=== PATIENT | female | born 2005 | race Hispanic/Latino ===

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

== ENCOUNTER 2025-08-02 07:46 | Emergency (ER) | payer OTHER ==
--- OUTSIDE RECORDS SUMMARY | 2025-08-02 07:52 | XMS REPORT | Continuity of Care Document ---
Author Name Unknown Address [address] [facility] [address] [place] [address] [facility] Address [address] [facility] [address] [place] [address] Care Team Providers Care Agile Scrum Master Name Role Phone PCP, PATIENT DOES NOT HAVE A Primary Care Physic naren Unavailable NATALEE AMEZQUITA Attending Clinician Unavailable NATALEE AMEZQUITA Attending Clinician Unavailable Natalee Amezquita MD Attending Clinician [phone] Doctor Unassigned, [place] Attending Clinician U navailable LEATHA HOWARD Attending Clinician Unavailable LEATHA HOWARD Attending Clinician Unavailable Nurse, [facility] Attending Clinician Un available Leslie Solitario MD Attending Clinician [phone] LESLIE SOLITARIO Attending Clinician Unavailable Leatha Howard MD Attending Clinician [phone] DOUG HOLLAND Attending Clinician Unavailab Doug Lewis NP Attending Clinician [phone] ISABELLA COLE Attending Clinician Unavailable MARCELLUS JOE Attending Clinician UnavailMarcellus Singh MD Attending Clinician [phone] Vadim Walker MD Attending Clinician Caden Cervantes MD Attending Clinician [phone] [facility] Attending Clinician Unavailable Isabella Cole DNP Attending Clinician [phone] , [facility] Lab Attending Clinician Unavailable Ultrasound, [facility] Attending Clinician UnavailMaryan Cruz MD Attending Clinician + MARYAN TAVARES Attending Clinician Unav ailable MARYAN TAVARES Attending Clinician Unav ailable BRIAN HAYES Attending Clinician Unavailable BRIAN HAYES Attending Clinician Unavailable Brian Hayes MD Attending Clinician [phone], [facility] Attending Clinician Unavailable NATALEE AMEZQUITA Admitting Clinician Unavailable LESLIE SOLITARIO Admitting Clinician Unavailable DOUG HOLLAND Admitting Clinician UnavailMARCELLUS Saravia Admitting Clinician UnavailMarcellus Singh MD Admitting Clinician [phone] Natalee Amezquita MD Admitting Clinician Payers Payer Name Policy Type Policy Number Effective Date Expirati on Date Source [facility] [id number] 2024 00:00:00 Problems Condition Name Condition Details Condition Category Status Onset Date Resolution Date Last Treatment Date Treating Clinician Comments Source Preeclamps ia, third trimester Preeclamps ia, third trimester Disease Active 2023-10 00:00: 00 [facility] Palpitatio ns Palpitatio ns Disease Active 2023-10 00:00: 00 [facility] BCP ( control pills) initiation BCP ( control pills) initiation Disease Resolve d 4-28 00:00: 00 2025-07-27 00:00:00 2025-07-27 18:37:49 [facility] PRES (posterior reversible encephalop athy syndrome) PRES (posterior reversible encephalop athy syndrome) Disease Resolve d 1-06 00:00: 00 2025-07-27 00:00:00 2025-07-27 18:38:02 [facility] 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 Disease Resolve d 1-06 00:00: 00 2025-07-27 00:00:00 2025-07-27 18:37:52 [facility] History of severe pre-eclamp emory History of severe pre-eclamp emory Disease Resolve d 2024-1 2-26 00:00: 00 2025-07-27 00:00:00 2025-07-27 18:38:10 [facility] Biliary colic Biliary colic Disease Resolve d 2-17 00:00: 00 2025-02-16 00:00:00 2025-02-16 15:15:58 [facility] Biliary sludge determined by ultrasound Biliary sludge determined by ultrasound Disease Resolve d 1-29 00:00: 00 2025-02-16 00:00:00 2025-02-16 15:16:01 [facility] RUQ pain RUQ pain Disease Resolve d 1-29 00:00: 00 2025-02-16 00:00:00 2025-02-16 15:16:00 [facility] Calculus of gallbladde r without cholecysti tis without obstructio n Calculus of gallbladde r without cholecysti tis without obstructio n Disease Resolve d 1- 00:00: 00 2025-02-16 00:00:00 2025-02-16 15:15:59 [facility] Personal history of gallstones Personal history of gallstones Disease Resolve d 9-24 00:00: 00 2025-02-16 00:00:00 2025-02-16 15:16:06 [facility] Chlamydia trachomati s infection of lower genitourin mika sites Chlamydia trachomati s infection of lower genitourin mika sites Disease Resolve d 8-05 00:00: 00 2025-02-16 00:00:00 2025-02-16 15:16:08 [facility] Non-reacti ve NST (non-stres s test) Non-reacti ve NST (non-stres s test) Disease Resolve d 2023-10 2-26 00:00: 00 2024-11-18 00:00:00 2024-11-18 14:21:54 [facility] Oligohydra mnios in third trimester, single or unspecifie d fetus Oligohydra mnios in third trimester, single or unspecifie d fetus Disease Resolve d 2023-10 2-26 00:00: 00 2024-11-18 00:00:00 2024-11-18 14:21:34 [facility] 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 for herpes simplex virus (HSV) antibody Disease Resolve d 2023-10 2-25 00:00: 00 2024-11-18 00:00:00 2024-11-18 14:21:50 [facility] Anemia in , third trimester Anemia in , third trimester Disease Resolve d 2023-10 2-25 00:00: 00 2024-11-18 00:00:00 2024-11-18 14:21:52 [facility] 33 weeks gestation of 33 weeks gestation of Disease Resolve d 2023-10 2-24 00:00: 00 2024-11-18 00:00:00 2024-11-18 14:21:41 [facility] Obesity (BMI 30-39.9) Obesity (BMI 30-39.9) Disease Resolve d 2023-10 2-24 00:00: 00 2024-11-18 00:00:00 2024-11-18 14:21:48 [facility] Heartburn during in third trimester Heartburn during in third trimester Disease Resolve d 2023-10 2-18 00:00: 00 2024-11-18 00:00:00 2024-11-18 14:21:40 [facility] Dizziness and giddiness Dizziness and giddiness Disease Resolve d 9-24 00:00: 00 2024-11-18 00:00:00 2024-11-18 14:21:37 [facility] Elevated BP without diagnosis of hypertensi on Elevated BP without diagnosis of hypertensi on Disease Resolve d 2023-10 2-24 00:00: 00 2024-10-21 00:00:00 2024-10-21 12:32:28 [facility] Leg pain, anterior, right Leg pain, anterior, right Disease Resolve d 2023-0 9-24 00:00: 00 2024-10-21 00:00:00 2024-10-21 12:32:17 [facility] Normal in third trimester Normal in third trimester Disease Resolve d 2023-0 8-01 00:00: 00 2024-10-21 00:00:00 2024-10-21 12:32:12 [facility] uterine contractio ns in third trimester, antepartum uterine contractio ns in third trimester, antepartum Disease Resolve d 2023-10 2-24 00:00: 00 2024-10-20 00:00:00 2024-10-20 08:56:16 [facility] Nausea and vomiting during Nausea and vomiting during Disease Resolve d 2023-10- 00:00: 00 2024-10-20 00:00:00 2024-10-20 08:56:19 [facility] Allergies, Adverse Reactions, Alerts Allergy Name Allergy Type Status Severity Reaction(s) Onset Date Inactive Date Treating Clinician Comments Source NEOMY-BA CIT-POLY MYX-PRAM OXINE DRUG Active Low Rash 2023-10 00:00: 00 [facility] Neomy-Ba cit-Poly myx-Pram oxine Drug Allergy Active Rash 2023-10 00:00: 00 [facility] NO KNOWN ALLERGIE S Drug Class Active [facility] Social History Social Habit Start Date Stop Date Quantity Comments Source ASSERTION 2024-03-13 00:00:00 Not [facility] Alcoholic beverage intake 2025-07-27 00:00:00 2025-07-27 00:00:00 Ex-drinker (finding) [facility] History of Social function 2024-12-13 00:00:00 2024-12-13 00:00:00 [facility] Tobacco use and exposure 2024-05-27 00:00:00 2024-05-27 00:00:00 Smokeless tobacco non-user [facility] Sex assigned at 2005 00:00:00 2005 00:00:00 [facility] Smoking Status Start Date Stop Date Source Never smoked tobacco [facility] Medications Ordered Medication Name Filled Medication Name Start Date Stop Date Current Medication? Ordering Clinician Indication Dosage Frequency Signature (SIG) Comments Components Source metroNIDAZO LE 500 mg tablet 2024-10 0- 00:00: 08-05 04:59 :00 Yes [id number] 500mg Take 1 tablet by mouth in the morning and 1 tablet in the evening. Do all this for 7 days. [facility] azithromyci n 500 mg tablet 2024-10 0- 00:00: 00 07-29 04:59 :00 Yes [id number] 1000mg Take 2 tablets by mouth once now for 1 dose. [facility] medroxyPROG ESTERone (PROVERA) 10 mg tablet 2024-10 0 00:00: 00 Yes [id number] 10mg Take 1 tablet by mouth in the morning. [facility] fluconazole 150 mg tablet 2024-10 00:00: 00 07-28 04:59 :00 Yes [id number] 150mg Take 1 tablet by mouth once now for 1 dose. [facility] drospirenon e, contracepti ve, (SLYND) 4 mg (28) Tab 4-28 00:00: 00 07-27 00:00 :00 No [id number] 1{tbl} Take 1 tablet by mouth in the morning. [facility] labetaloL 300 mg tablet 2-17 00:00: 00 02-16 00:00 :00 No [id number] 300mg Take 1 tablet by mouth in the morning and 1 tablet in the evening. [facility] ondansetron (ZOFRAN (PF)) injection 4 mg 11-24 23:30: 00 11-24 23:24 :00 No 4mg 4 mg, Slow IV Push, ONCE, 1 dose, On Fri11/24/24 at 1730, Administer over 2-5 Minutes, 2 mL [facility] morpHINE (4 mg/mL) injection 4 mg 11-24 23:30: 00 11-24 23:22 :00 No 4mg 4 mg, Slow IV Push, ONCE, 1 dose, On Fri11/24/24 at 1730, STAT [facility] ondansetron 4 mg disintegrat ing tablet 11-24 00:00: 00 02-16 00:00 :00 No [id number] 4mg Take 1 tablet by mouth every 8 (eight) hours as needed for Nausea and Vomiting (N/V). [facility] Blood Pressure Monitor Kit 11-18 00:00: 00 02-16 00:00 :00 No [id number] Use as directed [facility] hydroCHLORO thiazide 25 mg tablet 11-01 00:00: 00 12-27 00:00 :00 No [id number] 25mg Take 1 tablet by mouth in the morning and 1 tablet in the evening. [facility] labetaloL 300 mg tablet 11-01 00:00: 00 12-13 00:00 :00 No [id number] 300mg Take 1 tablet by mouth in the morning and 1 tablet at noon and 1 tablet in the evening. [facility] hydroCHLORO thiazide (ESIDRIX) tablet 25 mg -05 02:00: 00 11-01 22:07 :02 No 25mg 25 mg, Oral, BID, First dose (after last modificati on) on 10/30/24 at 2000, Until Discontinu ed, Routine [facility] labetaloL (NORMODYNE) tablet 300 mg - 20:00: 00 11-01 22:07 :02 No 300mg 300 mg, Oral, TID, First dose (after last modificati on) on Pamela 10/28/24 at 1400, Until Discontinu ed, Routine [facility] labetaloL (NORMODYNE) tablet 100 mg - 16:30: 00 10-28 16:43 :00 No 100mg 100 mg, Oral, ONCE, 1 dose, On Pamela 10/28/24 at 1030, Routine [facility] labetaloL (NORMODYNE) tablet 200 mg - 20:00: 00 10-28 16:19 :24 No 200mg 200 mg, Oral, TID, First dose (after last modificati on) on Fri10/27/24 at 1400, Until Discontinu ed, Routine [facility] D5W-LR IV infusion 1,000 mL 10-27 17:15: 00 11-01 22:07 :02 No 1000mL at 75 mL/hr, IV Infusion, CONTINUOUS , Starting on Fri10/27/24 at 1115, Until Fri11/01/24 at 1607, KRYSTIN [facility] calcium gluconate 100 mg/mL (10%) injection 1,000 mg 10-27 17:00: 43 11-01 22:07 :02 No 1000mg 1,000 mg, Slow IV Push, PRN - SEE INSTRUCTIO NS, Starting on Fri10/27/24 at 1100, Until Fri11/01/24 at 1607, Routine, magnesium toxicity [facility] hydroCHLORO thiazide (ESIDRIX) tablet 25 mg 10-27 14:30: 00 10-30 19:04 :34 No 25mg 25 mg, Oral, DAILY, First dose on Fri10/27/24 at 0830, Until Discontinu ed, Routine [facility] [id number] fum-folic () 27 mg iron- 1 mg folic tablet 2023-10 00:00: 00 Yes [id number] 1{tbl} Take 1 tablet by mouth in the morning. [facility] ferrous sulfate 325 mg (65 mg iron) tablet ferrous sulfate 325 mg (65 mg iron) tablet 2023-10 00:00: 00 02-16 00:00 :00 No [id number] 325mg Take 1 tablet by mouth in the morning. [facility] ibuprofen 800 mg tablet 2023-10 00:00: 00 12-27 00:00 :00 No [id number] 800mg Take 1 tablet by mouth every 8 (eight) hours as needed (pain). Take with food or milk. [facility] docusate 100 mg capsule 2023-10 00:00: 00 11-18 00:00 :00 No [id number] 200mg Take 2 capsules by mouth once daily as needed for Constipati on. [facility] acetaminoph en 500 mg tablet 2023-10 00:00: 00 11-18 00:00 :00 No [id number] 1000mg Take 2 tablets by mouth every 8 (eight) hours as needed for Pain. [facility] labetaloL 200 mg tablet 2023-10 00:00: 00 11-01 00:00 :00 No [id number] 200mg Take 1 tablet by mouth every 12 (twelve) hours for 30 days. [facility] labetaloL (NORMODYNE) tablet 200 mg 2023-10 17:45: 00 10-27 17:24 :13 No 200mg 200 mg, Oral, Q12H, First dose on 10/25/24 at 1145, Until Discontinu ed, Routine [facility] ibuprofen (IBU) tablet 600 mg 2023-10 00:00: 00 11-01 22:07 :02 No 600mg 600 mg, Oral, Q8HA1, First dose on 10/24/24 at 1800, Until Discontinu ed, Routine [facility] acetaminoph en (TYLENOL) tablet 650 mg 2023-10 00:00: 00 11-01 22:07 :02 No 650mg 650 mg, Oral, Q8H, First dose on 10/24/24 at 1800, Until Discontinu ed, Routine [facility] rho(D) immune globulin (RHOPHYLAC) injection 300 mcg 2023-10 17:54: 43 11-01 22:07 :02 No 300ug [facility] diphenhydrA MINE (BENADRYL) tablet 25 mg 2023-10 17:54: 41 11-01 22:07 :02 No 25mg 25 mg, Oral, Q6HPRN, Starting on 10/24/24 at 1154, Until Fri11/01/24 at 1607, Routine, Sleep, Itching [facility] ondansetron (ZOFRAN (PF)) injection 4 mg 2023-10 17:54: 41 11-01 22:07 :02 No 4mg [facility] simethicone (GAS RELIEF (SIMETHICON E)) chewable tablet 160 mg 2023-10 17:54: 41 11-01 22:07 :02 No 160mg 160 mg, Oral, PC+HSPRN, Starting on Fri10/24/24 at 1154, Until Fri11/01/24 at 1607, Routine, Gas [facility] docusate (COLACE) capsule 200 mg 2023-10 17:54: 41 11-01 22:07 :02 No 200mg 200 mg, Oral, QDAILYPRN, Starting on Fri10/24/24 at 1154, Until Fri11/01/24 at 1607, Routine, Constipati on [facility] benzocaine- menthol (DERMOPLAST ) 20-0.5 % topical spray 2023-10 17:54: 41 11-01 22:07 :02 No [facility] gentamicin 340 mg in NaCl 0.9% (NS) 20 mL IV injection 2023-10 17:00: 00 10-26 12:04 :28 No 5mg/kg 340 mg (rounded from 330 mg = 5 mg/kg ?66 kg Adjusted weight), Intravenou s, Q24H ABX, 3 doses, First dose on Fri10/24/24 at 1100, Last dose on Fri10/26/24 at 1100, 20 mL, Reason for Anti-Infec tive: Documented Infection, Documented Infection Site: Pelvic, Duration of Therapy: Once (ED) [facility] ampicillin (POLYCILLIN -N) 2,000 mg in NaCl 0.9% (NS) 100 mL MINI-BAG 2023-10 17:00: 00 10-26 12:04 :28 No 2g 2,000 mg (2 g), IV Piggyback, Q6H ABX, 12 doses, First dose on Fri10/24/24 at 1100, Last dose on Fri10/27/24 at 0500, Administer over 30 Minutes, 100 mL, Reason for Anti-Infec tive: Documented Infection, Documented Infection Site: Pelvic, Duration of Therapy: Once (ED) [facility] labetaloL (NORMODYNE) 5 mg/mL injection 20 mg 2023-10 16:45: 00 10-24 15:50 :00 No 20mg 20 mg, Slow IV Push, ONCE, 1 dose, On 10/24/24 at 1045, Routine [facility] acetaminoph en (TYLENOL) tablet 1,000 mg 2023-10 16:00: 00 10-24 15:56 :00 No 1000mg 1,000 mg, Oral, ONCE, 1 dose, On 10/24/24 at 1000, Routine [facility] labetaloL (NORMODYNE) 5 mg/mL injection 20 mg 2023-10 15:00: 00 10-24 14:04 :00 No 20mg 20 mg, Slow IV Push, ONCE, 1 dose, On 10/24/24 at 0900, Routine [facility] ropivacaine 0.2 % (NAROPIN (PF)) epidural infusion 2023-10 00:52: 00 10-24 21:28 :27 No Epidural, CONTINUOUS PRN, Starting on 10/23/24 at 1852, Until 10/24/24 at 1528, Routine, Intra-op [facility] lidocaine-e pinephrine (XYLOCAINE W/EPINEPHRI NE) 1.5 %-1:200,000 injection 2023-10 00:50: 00 10-24 21:28 :27 No Epidural, ONCE INTRA PROCEDURE, Starting on 10/23/24 at 1850, Until 10/24/24 at 1528, Routine, Intra-op [facility] morpHINE injection 4 mg 2023-10 22:45: 00 10-23 21:53 :00 No 4mg 4 mg, Slow IV Push, ONCE, 1 dose, On 10/23/24 at 1645, Routine [facility] metoclopram ernesto HCl (REGLAN) 10 mg in NaCl 0.9% (NS) piggyback 2023-10 22:45: 00 10-23 23:20 :00 No 10mg 10 mg, IV Piggyback, ONCE, 1 dose, On 10/23/24 at 1645, 50 mL [facility] oxytocin (PITOCIN) 30 units in NS 500 mL IV infusion 2023-10 22:15: 13 10-24 17:54 :28 No 2mU/min at 2-40 mL/hr, IV Infusion, TITRATE, Starting on 10/23/24 at 1615, Until 10/24/24 at 1154, KRYSTIN [facility] ondansetron (ZOFRAN (PF)) injection 4 mg 2023-10 21:30: 00 10-23 20:35 :00 No 4mg 4 mg, Slow IV Push, ONCE, On 10/23/24 at 1530, For 1 dose, Please give medication over 2-5 minutes. [facility] acetaminoph en (TYLENOL) tablet 650 mg 2023-10 16:01: 35 10-24 17:54 :28 No 650mg 650 mg, Oral, Q6HPRN, Starting on 10/23/24 at 1001, Until 10/24/24 at 1154, Routine, Pain (scale 4-6) [facility] morpHINE injection 4 mg 2023-10 16:00: 00 10-23 15:15 :00 No 4mg 4 mg, Slow IV Push, ONCE, 1 dose, On 10/23/24 at 1000, Routine [facility] acetaminoph en (TYLENOL) tablet 1,000 mg 2023-10 10:00: 00 10-23 09:37 :00 No 1000mg 1,000 mg, Oral, ONCE, 1 dose, On 10/23/24 at 0400, Routine [facility] acetaminoph en (TYLENOL) tablet 1,000 mg 2023-10 02:09: 00 10-23 02:23 :00 No 1000mg 1,000 mg, Oral, ONCE, 1 dose, On Fri10/22/24 at 2015, Routine [facility] D5W-LR IV infusion 1,000 mL 2023-10 19:30: 00 10-25 11:55 :57 No 1000mL at 75 mL/hr, IV Infusion, CONTINUOUS , Starting on Fri10/22/24 at 1330, Until Fri10/25/24 at 0555, KRYSTIN [facility] LORazepam (ATIVAN) injection 2 mg 2023-10 19:19: 45 11-01 22:07 :02 No 2mg 2 mg, Intravenou s, PRN - SEE INSTRUCTIO NS, 2 doses, Starting on Fri10/22/24 at 1319, Until Fri11/01/24 at 1607, Routine, Seizures [facility] proCHLORper azine (COMPAZINE) tablet 10 mg 2023-10 18:03: 00 10-22 18:10 :00 No 10mg 10 mg, Oral, ONCE, 1 dose, On Fri10/22/24 at 1215, Routine [facility] acetaminoph en (TYLENOL) tablet 1,000 mg 2023-10 13:42: 00 10-22 13:51 :00 No 1000mg 1,000 mg, Oral, ONCE, 1 dose, On Fri10/22/24 at 0745, Routine [facility] clindamycin 150 mg capsule 2023-10 00:00: 00 10-22 00:00 :00 No [id number] 450mg Take 3 capsules by mouth in the morning and 3 capsules at noon and 3 capsules in the evening. Do all this for 7 days. [facility] HYDROcodone -acetaminop hen 5-325 mg tablet 2023-10 00:00: 00 10-22 00:00 :00 No [id number] 1{tbl} Take 1 tablet by mouth every 6 (six) hours as needed for Pain (scale 7-10) (Take at bedtime.) for up to 7 days. Indication s: acute pain [facility] lactated ringers IV infusion 1,000 mL 2023-10 22:00: 00 10-24 17:54 :28 No 1000mL at 125 mL/hr, 1,000 mL, IV Infusion, CONTINUOUS , Starting on Fri10/21/24 at 1600, Until Fri10/24/24 at 1154, Routine [facility] acetaminoph en (TYLENOL) tablet 1,000 mg 2023-10 20:05: 00 10-21 21:31 :00 No 1000mg 1,000 mg, Oral, ONCE, 1 dose, On Fri10/21/24 at 1415, Routine [facility] lactated ringers IV infusion 1,000 mL 2023-10 19:45: 00 10-23 02:45 :00 No 1000mL at 999 mL/hr, 1,000 mL, IV Infusion, ONCE, 1 dose, On Fri10/21/24 at 1345, [facility] acetaminoph en (TYLENOL) tablet 1,000 mg 2023-10 15:02: 00 10-20 15:14 :00 No 1000mg 1,000 mg, Oral, ONCE, 1 dose, On Fri10/20/24 at 0915, [facility] betamethaso ne acet,sod phos (CELESTONE SOLUSPAN) 6 mg/mL injection 12 mg 2023-10 14:53: 00 10-20 15:15 :00 No 12mg 12 mg, Intramuscu lar, ONCE, 1 dose, On Fri10/20/24 at 0900, [facility] betamethaso ne acet,sod phos (CELESTONE SOLUSPAN) 6 mg/mL injection 12 mg 2023-10 15:15: 00 Yes 12mg 12 mg, Intramuscu lar, Q24H, First dose on Fri10/19/24 at 0915, Until Discontinu ed, Routine [facility] terbutaline (BRETHINE) injection 0.25 mg 2023-10 10:59: 00 10-19 11:07 :00 No .25mg 0.25 mg, Subcutaneo us, ONCE, 1 dose, On Fri10/19/24 at 0500, Routine [facility] FENTanyl (PF) (SUBLIMAZE) injection 100 mcg 2023-10 04:45: 00 10-19 04:35 :00 No 100ug 100 mcg, Slow IV Push, ONCE, 1 dose, On Fri10/18/24 at 2245, Routine [facility] proCHLORper azine (COMPAZINE) injection 10 mg 2023-10 02:59: 00 10-19 03:07 :00 No 10mg 10 mg, Slow IV Push, ONCE, 1 dose, On Fri10/18/24 at 2115, Routine [facility] metoclopram ernesto HCl (REGLAN) injection 10 mg 2023-10 02:00: 00 10-19 01:45 :00 No 10mg 10 mg, Slow IV Push, ONCE NOW, 1 dose, On Fri10/18/24 at 2000, Routine [facility] NaCl 0.9% (NS) IV infusion 1,000 mL 2023-10 01:30: 00 Yes 1000mL at 150 mL/hr, IV Infusion, CONTINUOUS , Starting on Fri10/18/24 at 1930, Until Discontinu ed, Routine [facility] ondansetron (ZOFRAN (PF)) injection 4 mg 2023-10 01:15: 25 Yes 4mg 4 mg, Slow IV Push, Q6HPRN, Nausea and Vomiting (N/V), Starting on Fri10/18/24 at 1915, Please give medication over 2-5 minutes. [facility] ferrous sulfate 325 mg (65 mg iron) tablet 2023-10 1-15 00:00: 00 10-26 00:00 :00 No [id number] 325mg Take 1 tablet by mouth in the morning and 1 tablet in the evening. [facility] vit no.130-iron -folic ( VITAMIN) 2023-10 0-22 00:00: 00 10-26 00:00 :00 No [id number] 1{tbl} Take 1 tablet by mouth in the morning. [facility] ondansetron (ZOFRAN-ODT ) disintegrat ing tablet 4 mg 06-01 02:45: 00 06-01 02:16 :00 No 4mg 4 mg, Oral, ONCE, 1 dose, [facility] Fri05/31/24 at 2145[facility] 1,000 mg 06-01 01:45: 00 06-01 02:16 :00 No 1000mg 1,000 mg, Oral, ONCE, 1 dose, On Fri05/31/24 at 2045, [facility] azithromyci n 500 mg tablet 06-01 00:00: 00 07-20 00:00 :00 No [id number] 1000mg Take 2 tablets by mouth in the morning. [facility] metroNIDAZO LE (FLAGYL) 500 mg tablet 06-01 00:00: 00 06-09 04:59 :00 No [id number] 500mg Take 1 tablet by mouth in the morning and 1 tablet in the evening. Do all this for 7 days. [facility] proMETHazin e 25 mg tablet 06-01 00:00: 00 06-02 04:59 :00 No 25mg Take 1 tablet by mouth once now for 1 dose. [facility] ondansetron 4 mg disintegrat ing tablet 05-31 00:00: 07-20 00:00 :00 No [id number] 4mg Take 1 tablet by mouth every 12 (twelve) hours as needed for Nausea and Vomiting (N/V). [facility] Nitrofurant oin&Nit. Macrocryst 100 mg capsule 05-31 00:00: 00 06-08 04:59 :00 No [id number] 100mg Take 1 capsule by mouth in the morning and 1 capsule in the evening. Do all this for 7 days. [facility] azithromyci n 500 mg tablet 05-31 00:00: 00 06-01 04:59 :00 No [id number] 1000mg Take 2 tablets by mouth once now for 1 dose. [facility] PNV no.95/jessi us fum/folic ac ( ORAL) 05-27 14:49: 48 08-17 00:00 :00 No Take by mouth. [facility] Immunizations Ordered Immunization Name Filled Immunization Name Date Status Comments Source TDAP 2024-09-14 00:00:00 Completed [facility] Vital Signs Vital Name Observation Time Observation Value Comments S ource Systolic blood pressure 2025-07-27 18:12:00 128 mm[Hg] [facility] Diastolic blood pressure 2025-07-27 18:12:00 76 mm[Hg] [facility] Heart rate 2025-07-27 18:12:00 99 /min [facility] Body temperature 2025-07-27 18:12:00 36.39 [facility] Body height 2025-07-27 18:12:00 162.6 cm [facility] Body weight 2025-07-27 18:12:00 65.318 kg [facility] BMI 2025-07-27 18:12:00 24.72 kg/m2 [facility] Systolic blood pressure 2025-05-24 20:53:00 105 mm[Hg] [facility] Diastolic blood pressure 2025-05-24 20:53:00 71 mm[Hg] [facility] Heart rate 2025-05-24 20:53:00 88 /min [facility] Body temperature 2025-05-24 20:53:00 36 [facility] Body height 2025-05-24 20:53:00 162.6 cm [facility] Body weight 2025-05-24 20:53:00 64.501 kg [facility] BMI 2025-05-24 20:53:00 24.41 kg/m2 [facility] Systolic blood pressure 2025-02-21 20:51:00 115 mm[Hg] [facility] Diastolic blood pressure 2025-02-21 20:51:00 67 mm[Hg] [facility] Heart rate 2025-02-21 20:51:00 90 /min [facility]ive [facility] Body temperature 2025-02-21 20:51:00 36.94 [facility] Respiratory rate 2025-02-21 20:51:00 18 /min [facility] Systolic blood pressure 2025-02-16 19:59:00 123 mm[Hg] [facility] Diastolic blood pressure 2025-02-16 19:59:00 70 mm[Hg] [facility] Heart rate 2025-02-16 19:59:00 103 /min Unive [facility] Body temperature 2025-02-16 19:59:00 36.06 [facility] Body height 2025-02-16 19:59:00 162.6 cm [facility] Body weight 2025-02-16 19:59:00 63.866 kg [facility] BMI 2025-02-16 19:59:00 24.17 kg/m2 [facility] Systolic blood pressure 2025-01-20 15:20:00 99 mm[Hg] [facility] Diastolic blood pressure 2025-01-20 15:20:00 73 mm[Hg] [facility] Heart rate 2025-01-20 15:20:00 95 /min [facility] Respiratory rate 2025-01-20 15:20:00 18 /min [facility] Body height 2025-01-20 15:20:00 162.6 cm [facility] Body weight 2025-01-20 15:20:00 63.957 kg [facility] BMI 2025-01-20 15:20:00 24.20 kg/m2 [facility] Systolic blood pressure 2025-01-20 18:34:00 129 mm[Hg] [facility] Diastolic blood pressure 2025-01-20 18:34:00 80 mm[Hg] [facility] Heart rate 2025-01-20 18:34:00 111 /min [facility] Body temperature 2025-01-20 18:34:00 36.28 [facility] Respiratory rate 2025-01-20 18:34:00 16 /min [facility] Body weight 2025-01-20 18:34:00 64.411 kg [facility] Oxygen saturation in Arterial blood by Pulse oximetry 2025-01-20 18:34:00 95 /min [facility] Systolic blood pressure 2024-12-27 15:55:00 108 mm[Hg] [facility] Diastolic blood pressure 2024-12-27 15:55:00 67 mm[Hg] [facility] Heart rate 2024-12-27 15:55:00 79 /min [facility] Body temperature 2024-12-27 15:55:00 36.11 [facility] Respiratory rate 2024-12-27 15:55:00 18 /min [facility] Body height 2024-12-27 15:55:00 162.6 cm [facility] Body weight 2024-12-27 15:55:00 64.411 kg [facility] BMI 2024-12-27 15:55:00 24.37 kg/m2 [facility] Systolic blood pressure 2024-12-13 20:57:00 114 mm[Hg] [facility] Diastolic blood pressure 2024-12-13 20:57:00 54 mm[Hg] [facility] Heart rate 2024-12-13 20:57:00 92 /min [facility] Body temperature 2024-12-13 20:57:00 35.89 [facility] Respiratory rate 2024-12-13 20:57:00 16 /min [facility] Body height 2024-12-13 20:57:00 162.6 cm [facility] Body weight 2024-12-13 20:57:00 64.411 kg [facility] BMI 2024-12-13 20:57:00 24.37 kg/m2 [facility] Oxygen saturation in Arterial blood by Pulse oximetry 2024-12-13 20:57:00 96 /min [facility] Systolic blood pressure 2024-12-13 20:42:00 103 mm[Hg] [facility] Diastolic blood pressure 2024-12-13 20:42:00 55 mm[Hg] [facility] Heart rate 2024-12-13 20:42:00 85 /min [facility] Respiratory rate 2024-12-13 20:42:00 18 /min [facility] Body height 2024-12-13 20:42:00 162.6 cm [facility] Body weight 2024-12-13 20:42:00 63.957 [facility] BMI 2024-12-13 20:42:00 24.20 kg/m2 [facility] Body weight 2024-11-30 20:34:00 63.957 kg [facility] BMI 2024-11-30 20:34:00 24.20 kg/m2 [facility] Systolic blood pressure 2024-11-25 16:46:00 113 mm[Hg] [facility] Diastolic blood pressure 2024-11-25 16:46:00 77 mm[Hg] [facility] Heart rate 2024-11-25 16:46:00 90 /min [facility] Respiratory rate 2024-11-25 16:46:00 18 /min [facility] Body height 2024-11-25 16:46:00 162.6 cm [facility] Body weight 2024-11-25 16:46:00 63.957 kg [facility] BMI 2024-11-25 16:46:00 24.20 kg/m2 [facility] Systolic blood pressure 2024-11-24 23:08:00 124 mm[Hg] [facility] Diastolic blood pressure 2024-11-24 23:08:00 77 mm[Hg] [facility] Heart rate 2024-11-24 23:08:00 92 /min [facility]ive [facility] Body temperature 2024-11-24 23:08:00 36.78 Jennie [facility] Respiratory rate 2024-11-24 23:08:00 14 /min [facility] Body height 2024-11-24 23:08:00 162.6 cm [facility] Body weight 2024-11-24 23:08:00 63.504 kg [facility] BMI 2024-11-24 23:08:00 24.03 kg/m2 [facility] Oxygen saturation in Arterial blood by Pulse oximetry 2024-11-24 23:08:00 100 /min [facility] Systolic blood pressure 2024-11-22 20:20:00 111 mm[Hg] [facility] Diastolic blood pressure 2024-11-22 20:20:00 69 mm[Hg] [facility] Heart rate 2024-11-22 20:20:00 79 /min [facility] Respiratory rate 2024-11-22 20:20:00 18 /min [facility] Body height 2024-11-22 20:20:00 162.6 cm [facility] Body weight 2024-11-22 20:20:00 63.504 kg [facility] BMI 2024-11-22 20:20:00 24.03 kg/m2 [facility] Systolic blood pressure 2024-11-18 19:39:00 104 mm[Hg] [facility] Diastolic blood pressure 2024-11-18 19:39:00 68 mm[Hg] [facility] Heart rate 2024-11-18 19:39:00 95 /min [facility]ive [facility] Body temperature 2024-11-18 19:39:00 35.94 Jenn[facility] Respiratory rate 2024-11-18 19:39:00 18 /min [facility] Body height 2024-11-18 19:39:00 162.6 cm [facility] Body weight 2024-11-18 19:39:00 62.234 kg [facility] BMI 2024-11-18 19:39:00 23.55 kg/m2 [facility] Systolic blood pressure 2024-11-05 16:26:00 121 mm[Hg] [facility] Diastolic blood pressure 2024-11-05 16:26:00 80 mm[Hg] [facility] Heart rate 2024-11-05 16:26:00 76 /min [facility] Respiratory rate 2024-11-05 16:26:00 18 /min [facility] Body weight 2024-11-05 16:26:00 63.141 kg [facility] Systolic blood pressure 2024-11-01 18:11:00 126 mm[Hg] [facility] Diastolic blood pressure 2024-11-01 18:11:00 79 mm[Hg] [facility] Body temperature 2024-11-01 18:11:00 36.78 Jennie [facility] Respiratory rate 2024-11-01 18:11:00 18 /min [facility] Oxygen saturation in Arterial blood by Pulse oximetry 2024-11-01 18:11:00 99 /min [facility] Heart rate 2024-11-01 13:57:00 105 /min [facility] Body height 2024-10-23 02:40:00 162.6 cm [facility] Body weight 2024-10-23 02:40:00 83.008 kg [facility] BMI 2024-10-23 02:40:00 31.40 kg/m2 [facility] Systolic blood pressure 2024-10-21 16:01:00 119 mm[Hg] [facility] Diastolic blood pressure 2024-10-21 16:01:00 78 mm[Hg] [facility] Heart rate 2024-10-21 16:00:00 80 /min [facility]ive [facility] Body temperature 2024-10-21 16:00:00 36.78 Jennie [facility] Respiratory rate 2024-10-21 16:00:00 18 /min [facility] Body height 2024-10-21 16:00:00 162.6 cm [facility] Body weight 2024-10-21 16:00:00 83.28 kg [facility] BMI 2024-10-21 16:00:00 31.51 kg/m2 [facility] Systolic blood pressure 2024-10-20 15:15:00 142 mm[Hg] [facility] Diastolic blood pressure 2024-10-20 15:15:00 85 mm[Hg] [facility] Heart rate 2024-10-20 15:15:00 95 /min [facility] Body temperature 2024-10-20 15:15:00 36.56 Jennie [facility] Respiratory rate 2024-10-20 15:15:00 16 /min [facility] Oxygen saturation in Arterial blood by Pulse oximetry 2024-10-20 15:15:00 96 /min [facility] Heart rate 2024-10-19 17:49:00 88 /min [facility] Oxygen saturation in Arterial blood by Pulse oximetry 2024-10-19 17:49:00 100 /min [facility] Systolic blood pressure 2024-10-19 17:45:00 141 mm[Hg] [facility] Diastolic blood pressure 2024-10-19 17:45:00 82 mm[Hg] [facility] Body temperature 2024-10-19 17:45:00 36.61 [facility] Respiratory rate 2024-10-19 17:45:00 18 /min [facility] Body height 2024-10-19 00:11:00 162.6 cm [facility] Body weight 2024-10-19 00:11:00 80.287 kg [facility] BMI 2024-10-19 00:11:00 30.38 kg/m2 [facility] Systolic blood pressure 2024-10-13 21:50:00 133 mm[Hg] [facility] Diastolic blood pressure 2024-10-13 21:50:00 79 mm[Hg] [facility] Heart rate 2024-10-13 21:50:00 101 /min [facility] Body temperature 2024-10-13 21:50:00 36.67 [facility] Body height 2024-10-13 21:50:00 162.6 cm [facility] Body weight 2024-10-13 21:50:00 77.021 kg [facility] BMI 2024-10-13 21:50:00 29.15 kg/m2 [facility] Systolic blood pressure 2024-09-28 18:55:00 129 mm[Hg] [facility] Diastolic blood pressure 2024-09-28 18:55:00 79 mm[Hg] [facility] Heart rate 2024-09-28 18:55:00 85 /min [facility] Body temperature 2024-09-28 18:55:00 36.56 Jennie [facility] Respiratory rate 2024-09-28 18:55:00 18 /min [facility] Body weight 2024-09-28 18:55:00 73.573 kg [facility] Systolic blood pressure 2024-09-14 22:11:00 108 mm[Hg] [facility] Diastolic blood pressure 2024-09-14 22:11:00 70 mm[Hg] [facility] Heart rate 2024-09-14 22:11:00 89 /min [facility] Body temperature 2024-09-14 22:11:00 36.67 [facility] Body height 2024-09-14 22:11:00 162.6 cm [facility] Body weight 2024-09-14 22:11:00 71.124 kg [facility] BMI 2024-09-14 22:11:00 26.91 kg/m2 [facility] Systolic blood pressure 2024-08-17 21:16:00 109 mm[Hg] [facility] Diastolic blood pressure 2024-08-17 21:16:00 67 mm[Hg] [facility] Heart rate 2024-08-17 21:16:00 84 /min [facility] Body weight 2024-08-17 21:16:00 68.312 kg [facility] Systolic blood pressure 2024-07-22 20:59:00 105 mm[Hg] [facility] Diastolic blood pressure 2024-07-22 20:59:00 68 mm[Hg] [facility] Heart rate 2024-07-22 20:59:00 86 /min [facility] Body temperature 2024-07-22 20:59:00 36.72 [facility] Body height 2024-07-22 20:59:00 162.6 cm [facility] Body weight 2024-07-22 20:59:00 66.225 kg [facility] BMI 2024-07-22 20:59:00 25.06 kg/m2 [facility] Oxygen saturation in Arterial blood by Pulse oximetry 2024-07-22 20:59:00 98 /min [facility] Systolic blood pressure 2024-07-20 21:21:00 115 mm[Hg] [facility] Diastolic blood pressure 2024-07-20 21:21:00 78 mm[Hg] [facility] Heart rate 2024-07-20 21:21:00 102 [facility] Body temperature 2024-07-20 21:21:00 36.61 [facility] Body height 2024-07-20 21:21:00 162.6 cm [facility] Body weight 2024-07-20 21:21:00 66.497 kg [facility] BMI 2024-07-20 21:21:00 25.16 kg/m2 [facility] Systolic blood pressure 2024-06-29 20:15:00 108 mm[Hg] [facility] Diastolic blood pressure 2024-06-29 20:15:00 65 mm[Hg] [facility] Heart rate 2024-06-29 20:15:00 89 /min [facility] Body height 2024-06-29 20:15:00 162.6 cm [facility] Body weight 2024-06-29 20:15:00 66.497 kg [facility] BMI 2024-06-29 20:15:00 25.16 kg/m2 [facility] Systolic blood pressure 2024-06-01 03:39:00 90 mm[Hg] [facility] Diastolic blood pressure 2024-06-01 03:39:00 64 mm[Hg] [facility] Heart rate 2024-06-01 03:39:00 75 /min [facility] Body temperature 2024-06-01 03:39:00 36.83 Jennie [facility] Respiratory rate 2024-06-01 03:39:00 14 /min [facility] Oxygen saturation in Arterial blood by Pulse oximetry 2024-06-01 03:39:00 98 /min [facility] Body height 2024-06-01 01:23:00 162.6 cm [facility] Body weight 2024-06-01 01:23:00 65.772 kg [facility] BMI 2024-06-01 01:23:00 24.89 kg/m2 [facility] Body mass index (BMI) [Percentile] Per age and sex 2024-06-01 01:23:00 79.62 % [facility] Systolic blood pressure 2024-05-27 19:43:00 108 mm[Hg] [facility] Diastolic blood pressure 2024-05-27 19:43:00 69 mm[Hg] [facility] Heart rate 2024-05-27 19:43:00 91 /min [facility] Body temperature 2024-05-27 19:43:00 36.28 Jennie [facility] Body height 2024-05-27 19:43:00 162.6 cm [facility] Body weight 2024-05-27 19:43:00 67.677 kg [facility] BMI 2024-05-27 19:43:00 25.61 kg/m2 [facility] Body mass index (BMI) [Percentile] Per age and sex 2024-05-27 19:43:00 83.17 % [facility] Procedures Procedure Date / Time Performed Performing Clinician Source POCT TEST 2025-07-27 00:00:00 Natalee Amezquita [facility] POCT URINALYSIS W/O SPECIFIC GRAVITY 2025-07-27 00:00:00 Natalee Amezquita [facility] POCT TEST 2025-02-21 20:59:00 Natalee Amezquita [facility] POCT TEST 2025-02-16 20:01:00 Natalee Amezquita [facility] FUNDUS PHOTOS - OU - BOTH EYES 2024-11-30 21:23:51 Leatha Howard [facility] OCT, RETINA - OU - BOTH EYES 2024-11-30 21:23:43 Leatha Howard [facility] US GALL BLADDER 2024-11-24 23:54:57 Doug Holland [facility] POCT TEST 2024-11-24 23:26:00 Chelsea Holland [facility] LIPASE 2024-11-24 23:21:00 Doug Holland Un [facility] COMP. METABOLIC PANEL (67547) 2024-11-24 23:21:00 Doug Holland [facility] CBC WITH DIFF 2024-11-24 23:21:00 [facility] 2024-11-24 23:21:00 Doug Holland Un [facility] HB ABO GROUPING 2024-10-29 10:10:00 Anamaria Quintanilla [facility] MR BRAIN WO CONTRAST 2024-10-27 15:59:42 Lizzie Darden [facility] SGOT (ASPARTATE AMINO TRANSFER) 2024-10-27 14:29:00 Layne Velásquez [facility] CREATININE 2024-10-27 14:29:00 Rubin Velásquez [facility] ALANINE AMINO TRANSFERASE(SGPT 2024-10-27 14:29:00 Layne Velásquez [facility] LACTATE DEHYDROGENASE 2024-10-27 14:29:00 Layne Prieto [facility] URIC ACID 2024-10-27 14:29:00 Rubin Velásquez [facility] CBC WITH DIFF 2024-10-27 14:29:00 Rubin Velásquez [facility] URINALYSIS 2024-10-27 14:29:00 Rubin Velásquez [facility] PROTEIN CREAT RATIO URINE RANDOM 2024-10-27 14:29:00 Layne Velásquez [facility] MAGNESIUM 2024-10-25 14:16:00 Ranjan Wren Leora [facility] COMP. METABOLIC PANEL ([id number]) 2024-10-25 14:16:00 Ranjan Wren [facility] CBC WITH DIFF 2024-10-25 12:00[facility]00 [facility]INO [facility] 2024-10-25 04:21:00 Ally Quintanilla [facility] CREATININE 2024-10-25 04:21:00 Ally Quintanilla [facility] ALANINE AMINO TRANSFERASE(SGPT 2024-10-25 04:21:00 Germain Ferrell [facility] LACTATE DEHYDROGENASE 2024-10-25 04:21:00 Ally Quintanilla [facility] URIC ACID 2024-10-25 04:21:00 Ally Quintanilla [facility] MAGNESIUM 2024-10-25 04:21:00 Ally Quintanilla [facility] CBC WITH DIFF 2024-10-25 04:21:00 Tamika Quintanilla [facility] MAGNESIUM 2024-10-24 15:10:00 Alix Richardson Mai [facility] BASIC METABOLIC PANEL (NA, K, CL, CO2, GLUCOSE, BUN, CREATININE, CA) 2024-10-24 15:10:00 Neida Richardson Mai [facility] VENOUS CORD GAS 2024-10-24 11:38:00 Iris Tejada [facility] CENTRAL NEURAXIAL BLOCK 2024-10-24 11:23:00 Leandra Parker [facility] CENTRAL NEURAXIAL BLOCK 2024-10-24 01:03:00 Leandra Parker [facility] HEPATITIS B SURFACE ANTIGEN 2024-10-23 03:40:00 Demetrio Abad [facility] HB ABO GROUPING 2024-10-23 03:40:00 Demetrio Abad [facility] RHO (D) IMMUNE GLOBULIN 2024-10-23 03:40:00 Dayana Beckham [facility] HIV 1/2 AG-AB WITH REFLEX 2024-10-23 03:40:00 Jenniffer [facility] SYPHILIS IGG/IGM 2024-10-23 03:40:00 Jenniffer [facility] SGOT (ASPARTATE AMINO TRANSFER) 2024-10-22 18:25:00 Natalee Amezquita [facility] CREATININE 2024-10-22 18:25:00 Natalee Amezquita [facility] ALANINE AMINO TRANSFERASE(SGPT 2024-10-22 18:25:00 [facility]alee [facility]ita [facility] LACTATE DEHYDROGENASE 2024-10-22 18:25:00 Natalee Amezquita [facility] URIC ACID 2024-10-22 18:25:00 Natalee Amezquita [facility] CBC WITH DIFF 2024-10-22 18:25:00 Natalee Amezquita [facility] URINALYSIS 2024-10-22 18:25:00 Natalee Amezquita [facility] PROTEIN CREAT RATIO URINE RANDOM 2024-10-22 18:25:00 Natalee A[facility]zquita [facility] NON-STRESS TEST 2024-10-22 01:19:39 Natalee Amezquita [facility] HB ABO GROUPING 2024-10-21 19:46:00 Luma Abreu [facility] ADC ONLY - FERN TEST 2024-10-21 19:46:00 Nik Abreu [facility] US PELVIS > 14 WEEKS 2024-10-21 19:13:40 Luma Abreu [facility] US BIOPHYSICAL PROFILE 2024-10-21 19:13:13 Luma Abreu [facility] ADC CLC OR LCC ONLY - WET PREP 2024-10-19 12:09:00 Natalee Amezquita [facility] CREATININE 2024-10-19 11:30:00 Natalee Amezquita [facility] LACTATE DEHYDROGENASE 2024-10-19 11:30:00 Natalee Amezquita [facility] URIC ACID 2024-10-19 11:30:00 Natalee Amezquita [facility] AMYLASE 2024-10-19 11:30:00 Bia Natalee [facility] LIPASE 2024-10-19 11:30:00 Bia [facility] COMP. METABOLIC PANEL ([id number]) 2024-10-19 11:30:00 Bia [facility] CBC WITH DIFF 2024-10-19 11:30:00 Bia [facility] URINALYSIS 2024-10-19 11:30:00 Bia [facility] PROTEIN CREAT RATIO URINE RANDOM 2024-10-19 11:30:00 iBa [facility] AMYLASE 2024-10-19 01:41:00 Bia [facility] LIPASE 2024-10-19 01:41:00 Bia [facility] MAGNESIUM 2024-10-19 01:41:00 Natalee Amezquita [facility] COMP. METABOLIC PANEL ([id number]) 2024-10-19 01:41:00 Bia [facility] CBC WITH DIFF 2024-10-19 01:41:00 Bia Natalee [facility] POCT URINALYSIS W/O SPECIFIC GRAVITY 2024-10-13 00:00:00 Bia [facility] POCT URINALYSIS W/O SPECIFIC GRAVITY 2024-09-28 18:56:00 Isabella Cole [facility] TDAP VACCINE, >11 YRS, IM 2024-09-14 22:32:13 Bia [facility] POCT URINALYSIS W/O SPECIFIC GRAVITY 2024-09-14 00:00:00 Amezquita [facility] DME/SUPPLY JUSTIFICATION 2024-08-18 14:15:47 Doc tor Unassigned, [place] [facility] POCT URINALYSIS W/O SPECIFIC GRAVITY 2024-08-17 00:00:00 Isabelal Cole [facility] SECOND AND THIRD TRIMESTER ULTRASOUND 2024-08-06 19:11:00 Bia, [facility] POCT URINALYSIS W/O SPECIFIC GRAVITY 2024-07-20 00:00:00 AmezquitaNatalee [facility] POCT URINALYSIS W/O SPECIFIC GRAVITY 2024-06-29 00:00:00 Isabella Cole [facility] SCANNED LAB RESULTS 2024-06-10 16:13:06 Doctor Ozzy bernal, [place] [facility] SCANNED LAB RESULTS 2024-06-10 16:13:05 Doctor Ozzy bernal, [place] [facility] URINALYSIS 2024-06-01 02:51:00 Brian Hayes [facility] <14 WEEKS US LIMITED 2024-05-27 20:25:38 Bia Nataleesandra Sullivan [facility] POCT TEST 2024-05-27 00:00:00 BiaNatalee Nate [facility] POCT URINALYSIS W/O SPECIFIC GRAVITY 2024-05-27 00:00:00 Bia Nataleesandra Sullivan [facility] Encounters Start Date/Time End Date/Time Encounter Type Admission Type Attending [facility] Facility Care Department Encounter ID Source 2024-10-19 12:19:57 Outpatient X [facility] [id number] [facility] 2025-07-28 00:00:00 2025-07-28 13:55:40 Case Management Natalee Amezquita [facility] 1.2.840.114 350.1.13.10 [id number] [id number] 134 [id number] [facility] 2025-07-28 00:00:00 2025-07-28 13:38:09 Telephone Natalee Amezquita [facility] [id number] 350.1.13.10 [id number] [id number] 134 [id number] [facility] 2025-07-27 13:00:00 2025-07-27 14:14:36 Office Visit R Natalee Amezquita [facility] 1.2.840.114 350.1.13.10 [id number] [id number] 134 [id number] [facility] 2025-07-25 00:00:00 2025-07-26 12:18:42 Patient Secure Msg Doctor Unassigned, [place] Doctor Unassigned, [place] [facility] 1.2.840.114 350.1.13.10 4.2.7.2.686 [id number] 134 [id number] [facility] 2025-07-25 15:15:00 2025-07-25 15:15:00 Outpatient R AMEZQUITA [facility]ATALEE [facility] [id number] [facility] 2025-07-22 00:00:00 2025-07-22 14:31:27 Telephone Natalee Amezquita [facility] [id number] 350.1.13.10 4.2.7.2.686 [id number] 134 [id number] [facility] 2025-07-22 00:00:00 2025-07-22 14:02:27 Patient Secure Msg Doctor Unassigned, [place] Doctor Unassigned, [place] [facility] 1.2.840.114 350.1.13.10 4.2.7.2.686 [id number] 134 [id number] [facility] 2025-05-23 00:00:00 2025-06-25 18:27:03 Patient Secure Msg Natalee Amezquita [facility] BU[facility] [id number] 350.1.13.10 4.2.7.2.686 [id number] 134 [id number] [facility] 2025-05-24 16:00:00 2025-05-24 16:00:00 Office Visit R Natalee Amezquita [facility] BU[facility] 1.2.840.114 350.1.13.10 4.2.7.2.686 [id number] 134 [id number] [facility] 2025-05-24 14:00:00 2025-05-24 14:00:00 Outpatient R NATALEE AMEZQUITA [facility] [id number] [facility] 2025-02-17 00:00:00 2025-03-26 18:26:35 Patient Secure Msg Natalee Amezquita [facility] 1.2.840.114 350.1.13.10 4.2.7.2.686 [id number] 134 [id number] [facility] 2025-02-28 15:30:00 2025-02-28 15:30:00 Outpatient R NATALEE AMEZQUITA [facility]EN [facility] [id number] [facility] 2025-02-22 14:30:00 2025-02-22 14:30:00 Outpatient R LEE, LEATHA [facility] [id number] [facility] 2025-02-21 15:30:00 2025-02-21 16:26:39 Outpatient R NATALEE AMEZQUITA [facility] [id number] [facility] 2025-02-21 15:30:00 2025-02-21 16:26:39 Office Visit Natalee Amezquita [facility] BUILDING 1.2.840.114 350.1.13.10 4.2.7.2.686 [id number] 134 [id number] [facility] 2025-02-16 15:00:00 2025-02-16 15:17:18 Outpatient R NATALEE AMEZQUITA [facility] [id number] [facility] 2025-02-16 15:00:00 2025-02-16 15:17:18 Office Visit [facility] BUILDING 1.2.840.114 350.1.13.10 4.2.7.2.686 [id number] 134 [id number] [facility] 2025-01-25 00:00:00 2025-01-25 09:45:12 Telephone Natalee Amezquita [facility] 1.2.840.114 350.1.13.10 4.2.7.2.686 [id number] 134 [id number] [facility] 2025-01-20 14:30:00 2025-01-20 14:41:19 Outpatient R NATALEE AMEZQUITA [facility] [id number] [facility] 2025-01-20 14:30:00 2025-01-20 14:41:19 Nurse Visit Nurse, [facility] Leslie Solitario Vien Cam Nurse, [facility] BUILDING 1.2.840.114 350.1.13.10 4.2.7.2.686 [id number] 134 [id number] [facility] 2025-01-20 13:30:00 2025-01-20 14:18:58 Office Visit Leslie Solitario [facility] 1.2.840.114 350.1.13.10 4.2.7.2.686 [id number] [facility] 2025-01-10 10:00:00 2025-01-10 10:00:00 Outpatient R [facility] [id number] [facility] 2025-01-04 08:45:00 2025-01-04 13:50:00 Outpatient R LESLIE SOLITARIO [facility] JAYCEE [id number] [facility] 2024-12-27 10:00:00 2024-12-27 10:23:39 Outpatient R NATALEE AMEZQUITA [facility] [id number] [facility] 2024-12-27 10:00:00 2024-12-27 10:23:39 Routine Visit Natalee Amezquita [facility] 1.2.840.114 350.1.13.10 4.2.7.2.686 [id number] 134 [id number] [facility] 2024-12-15 00:00:00 2024-12-23 16:25:24 Patient Secure Msg Natalee Amezquita [facility] 1.2840.114 350.1.13.10 4.2.7.2.686 [id number] 134 [id number] [facility] 2024-12-13 15:45:00 2024-12-13 15:48:58 Outpatient R SUN L[facility]LIE [facility] [id number] [facility] 2024-12-13 15:45:00 2024-12-13 15:48:58 Office Visit Leslie Solitario [facility] 1.20.114 350.1.13.10 4.2.7.2.686 [id number] [facility] 2024-12-13 14:00:00 2024-12-13 14:39:46 Nurse Visit Nurse, [facility] Natalee Amezquita Nurse, [facility] 1.20.114 350.1.13.10 4.2.7.2.686 [id number] 134 [id number] [facility] 2024-06-10 00:00:00 2024-12-11 07:07:13 Orders Only Doctor Unassigned, [place] Doctor Unassigned, [place] [facility] 1.2.840.114 350.1.13.10 4.2.7.2.686 [id number] 009 [id number] [facility] 2024-06-10 00:00:00 2024-12-11 07:07:01 Orders Only Doctor Unassigned, [place] Doctor Unassigned, [place] [facility] 1.2.840.114 350.1.13.10 4.2.7.2.686 [id number] 009 [id number] [facility] 2024-08-18 00:00:00 2024-12-11 06:45:44 Orders Only Doctor Unassigned, [place] Doctor Unassigned, [place] [facility] 1.0.114 350.1.13.10 4.2.7.2.686 [id number] 009 [id number] [facility] 2024-11-30 14:15:00 2024-11-30 15:41:22 Outpatient R LEE LEATHAMALIK HOWARD [facility] [id number] [facility] 2024-11-30 14:15:00 2024-11-30 15:41:22 Office Visit Lee [facility] 1..114 350.1.13.10 4.2.7.2.686 [id number] [facility] 2024-11-25 10:30:00 2024-11-25 10:46:37 Outpatient R NATALEE AMEZQUITA [facility] [id number] [facility] 2024-11-25 10:30:00 2024-11-25 10:46:37 Nurse Visit Nurse, [facility] Natalee Amezquita Nurse, [facility] 1..114 350.1.13.10 4.2.7.2.686 [id number] 134 [id number] [facility] 2024-11-24 17:11:00 2024-11-24 20:13:00 Emergency X ADECATALINO MACHADOIL [facility] ERT [id number] [facility] 2024-11-24 17:11:00 2024-11-24 20:13:00 Emergency AderiChelsea evansbril [facility] 1..114 350.1.13.10 4.2.7.2.686 [id number] 084 [id number] [facility] 2024-11-22 14:00:00 2024-11-22 14:26:30 Outpatient R NATALEE AMEZQUITA NATALEE AMEZQUITA [facility] [id number] [facility] 2024-11-22 14:00:00 2024-11-22 14:26:30 Nurse Visit Nurse, [facility] Natalee Amezquita Nurse, [facility] BUILDING 1.2.840.114 350.1.13.10 4.2.7.2.686 [id number] 134 [id number] [facility] 2024-10-18 00:00:00 2024-11-20 18:17:35 Patient Secure Msg Doctor Unassigned, [place] Doctor Unassigned, [place] [facility] BUILDING 1.2.840.114 350.1.13.10 4.2.7.2.686 [id number] 134 [id number] [facility] 2024-11-18 00:00:00 2024-11-18 16:16:35 Telephone Natalee Amezquita Nate [facility] 1.2.840.114 350.1.13.10 4.2.7.2.686 [id number] 134 [id number] [facility] 2024-11-18 13:15:00 2024-11-18 13:59:39 Outpatient R NATALEE AMEZQUITA NATALEE AMEZQUITA [facility] [id number] [facility] 2024-11-18 13:15:00 2024-11-18 13:59:39 Routine Visit Natalee Amezquita [facility] 1..840.114 350.1.13.10 4.2.7.2.686 [id number] 134 [id number] [facility] 2024-11-16 09:15:00 2024-11-16 09:15:00 Outpatient R LEATHA HOWARD RENUKA [facility] [id number] [facility] 2024-11-11 13:30:00 2024-11-11 13:30:00 Outpatient R BIATRAYNATALEE APODACA [facility] [id number] [facility] 2024-11-08 10:45:00 2024-11-08 10:45:00 Outpatient R [facility] [id number] [facility] 2024-11-05 10:30:00 2024-11-05 10:33:34 Outpatient R BIA NATALEE LINTON [facility] [id number] [facility] 2024-11-05 10:30:00 2024-11-05 10:33:34 Nurse Visit Nurse, [facility] Natalee Amezquita Nurse, [facility] 1..840.114 350.1.13.10 4.2.7.2.686 [id number] 134 [id number] [facility] 2024-11-02 00:00:00 2024-11-02 11:11:24 Telephone Leatha Howard [facility] [employer]. .2.840.114 350.1.13.10 4.2.7.2.686 [id number] 136 [id number] [facility] 2024-10-21 11:58:00 2024-11-01 16:00:00 Inpatient P MARCELLUS JOE [facility] RADHA [id number] [facility] 2024-10-21 11:58:00 2024-11-01 16:00:00 Hospital Encounter Natalee Amezquita Luis Diego [facility] ..840.114 350.1.13.10 4.2.7.2.686 [id number] [facility] 2024-10-25 10:00:00 2024-10-25 10:00:00 Outpatient R [facility] [id number] [facility] 2024-10-23 18:18:00 2024-10-24 06:45:00 Anesthesia Event Vadim Walker Sharif [facility] 1.2.840.114 350.1.13.10 4.2.7.2.686 [id number] [facility] 2024-10-21 10:00:00 2024-10-21 11:45:22 Outpatient R NATALEE AMEZQUITA [facility]EN [facility] [id number] [facility] 2024-10-21 10:00:00 2024-10-21 11:45:22 Routine Visit Room, [facility] Natalee Amezquita Room, [facility] BUILDING 1.2.840.114 350.1.13.10 4.2.7.2.686 [id number] 134 [id number] [facility] 2024-10-15 00:00:00 2024-10-21 09:53:58 Patient Secure Msg [facility] 1.2.840.114 350.1.13.10 4.2.7.2.686 [id number] 134 [id number] [facility] 2024-10-20 08:52:00 2024-10-20 09:57:00 Outpatient P NATALEE AMEZQUITA VIEN [facility] RADHA [id number] [facility] 2024-10-20 08:52:00 2024-10-20 09:57:00 Hospital Encounter Bia Nataleesandra Sullivan [facility] 1.2.840.114 350.1.13.10 4.2.7.2.686 [id number] [id number] [facility] 2024-10-20 08:46:40 2024-10-20 08:47:00 Emergency [facility] [id number] [facility] 2024-10-18 18:14:00 2024-10-19 12:05:00 Outpatient X NATALEE AMEZQUITA VIEN [facility] RADHA [id number] [facility] 2024-10-18 18:14:00 2024-10-19 12:05:00 Emergency Natalee Amezquita [facility] 1.2.840.114 350.1.13.10 4.2.7.2.686 [id number] 083 [id number] [facility] 2024-10-13 15:45:00 2024-10-13 16:05:29 Outpatient R NATALEE AMEZQUITA [facility] [id number] [facility] 2024-10-13 15:45:00 2024-10-13 16:05:29 Routine Visit Natalee Amezquita [facility] 1..840.114 350.1.13.10 4.2.7.2.686 [id number] 134 [id number] [facility] 2024-09-28 12:45:00 2024-09-28 13:11:06 Outpatient R ISABELLA COLE [facility] [id number] [facility] 2024-09-28 12:45:00 2024-09-28 13:11:06 Routine Visit Isabella Cole [facility] 1..840.114 350.1.13.10 4.2.7.2.686 [id number] 134 [id number] [facility] 2024-09-14 16:00:00 2024-09-14 16:30:29 Outpatient R NATALEE AMEZQUITA [facility] [id number] [facility] 2024-09-14 16:00:00 2024-09-14 16:30:29 Routine Visit Natalee Amezquita [facility] 1..840.114 350.1.13.10 4.2.7.2.686 [id number] 134 [id number] [facility] 2024-09-10 00:00:00 2024-09-10 09:16:13 Case Management Isabella Cole [facility] 1.2.840.114 350.1.13.10 4.2.7.2.686 [id number] 134 [id number] [facility] 2024-09-07 10:15:00 2024-09-07 12:04:43 Outpatient R NATALEE AMEZQUITA [facility] [id number] [facility] 2024-09-07 10:15:00 2024-09-07 10:30:00 Maintenance Fitter Visit 2, [facility] Natalee Amezquita 2, Adc Lab [facility] 1.2840.114 350.1.13.10 4.2.7.2.686 [id number] [facility] 2024-08-17 16:00:00 2024-08-17 16:41:11 Outpatient R ISABELLA COLE [facility] [id number] [facility] 2024-08-17 16:00:00 2024-08-17 16:41:11 Routine Visit Isabella Cole [facility] 1.284.114 350.1.13.10 4.2.7.2.686 [id number] 134 [id number] [facility] 2024-08-17 00:00:00 2024-08-17 10:34:33 Telephone Natalee Amezquita [facility] 1.2840.114 350.1.13.10 4.2.7.2.686 [id number] 134 [id number] [facility] 2024-08-06 13:00:00 2024-08-06 14:00:00 Maintenance Fitter Visit Ultrasound, Maryan Akbar [facility] DIRECTOR [facility] 1.2840.114 350.1.13.10 4.2.7.2.686 [id number] [facility] 2024-08-06 13:00:00 2024-08-06 13:00:00 Outpatient P KARTHIKJAMAICA MARYAN CHAITANYAMARYAN [facility] [id number] [facility] 2024-07-29 00:00:00 2024-08-03 10:14:24 Telephone Natalee Amezquita [facility] 1.2.840.114 350.1.13.10 4.2.7.2.686 [id number] 134 [id number] [facility] 2024-07-22 16:00:00 2024-07-22 16:30:48 Outpatient R LESLIE SOLITARIO [facility] [id number] [facility] 2024-07-22 16:00:00 2024-07-22 16:30:48 Office Visit Leslie Solitario [facility] 1.2.840.114 350.1.13.10 4.2.7.2.686 [id number] [facility] 2024-07-20 16:15:00 2024-07-20 16:53:25 Outpatient R NATALEE AMEZQUITA VIEN [facility] [id number] [facility] 2024-07-20 16:15:00 2024-07-20 16:53:25 Routine Visit Natalee Amezquita [facility] 1.2.840.114 350.1.13.10 4.2.7.2.686 [id number] 134 [id number] [facility] 2024-06-29 00:00:00 2024-06-30 10:17:49 Telephone Isabella Cole [facility] BUILDING 1.2.840.114 350.1.13.10 4.2.7.2.686 [id number] 134 [id number] [facility] 2024-06-29 16:00:00 2024-06-29 16:15:00 Maintenance Fitter Visit 2, [facility] Isabella Cole 2, [facility] 1.2.840.114 350.1.13.10 4.2.7.2.686 [id number] 353 [id number] [facility] 2024-06-29 15:15:00 2024-06-29 15:34:04 Outpatient R ISABELLA COLE [facility] [id number] [facility] 2024-06-29 15:15:00 2024-06-29 15:34:04 Routine Visit Isabella Cole [facility] NAL BUILDING 1.2.840.114 350.1.13.10 4.2.7.2.686 [id number] 134 [id number] [facility] 2024-06-15 00:00:00 2024-06-16 11:40:55 Telephone Isabella Cole [facility] BUILDING 1.2.840.114 350.1.13.10 4.2.7.2.686 [id number] 134 [id number] [facility] 2024-06-09 00:00:00 2024-06-09 10:23:13 Telephone Natalee Amezquita [facility] BUILDING 1.2.840.114 350.1.13.10 4.2.7.2.686 [id number] 134 [id number] [facility] 2024-06-01 00:00:00 2024-06-01 17:50:01 Case Management Natalee Amezquita [facility] BUILDING 1.2.840.114 350.1.13.10 4.2.7.2.686 [id number] 134 [id number] [facility] 2024-06-01 00:00:00 2024-06-01 14:20:32 Telephone Natalee Amezquita [facility] BUILDING 1.2.840.114 350.1.13.10 4.2.7.2.686 [id number] 134 [id number] [facility] 2024-05-31 20:26:00 2024-05-31 22:44:00 Emergency X VASUT, BRIAN YANELI, BRIAN [facility] ERT [id number] [facility] 2024-05-31 20:26:00 2024-05-31 22:44:00 Emergency Vasut, Brian J [facility] 1.2.840.114 350.1.13.10 4.2.7.2.686 [id number] [id number] [facility] 2024-05-31 00:00:00 2024-05-31 15:18:18 Telephone BiaNatalee [facility] BUILDING 1.2.840.114 350.1.13.10 4.2.7.2.686 [id number] 134 [id number] [facility] 2024-05-31 00:00:00 2024-05-31 14:29:43 Case Management Natalee Amezquita [facility] BUILDING 1.2.840.114 350.1.13.10 4.2.7.2.686 [id number] 134 [id number] [facility] 2024-05-27 16:00:00 2024-05-27 16:15:00 Maintenance Fitter Visit 2, Ad[facility] Lab Natalee Amezquita [facility] BUILDING 1.2.840.114 350.1.13.10 4.2.7.2.686 [id number] 353 [id number] [facility] 2024-05-27 16:00:00 2024-05-27 16:00:00 Outpatient R NATALEE AMEZQUITA VIEN [facility] [id number] [facility] 2024-05-27 14:30:00 2024-05-27 15:23:47 Initial Visit Natalee Amezquita [facility] 1.2.840.114 350.1.13.10 4.2.7.2.686 [id number] 134 [id number] [facility] Results Test Description Test Time Test Comments Results Result Co mments Source [id number] 18:23:00* Test Item Value Reference Range Interpretation Comme nts POCT PREG (test code = 1605) Negative On board controls acceptable with C Line (test code = 3574) Yes POCT PREG LOT # (test code = 3575) POCT PREG TEST DATE ( test code = 3576) [facility] [id number] 20:59:00* Test Item Value Reference Range Interpretation Comme nts POCT PREG (test code = 1605) Negative On board controls acceptable with C Line (test code = 3574) Yes POCT PREG LOT # (test code = 3575) POCT PREG TEST DATE (test code = 3576) NATALIIA (test code = NATALIIA) accurate developme nt and interpretation of all internal controls Lab Interpretation (test code = 51282-1) Normal [facility] [id number] 20:04:00* Test Item Value Reference Range Interpretation Comme nts POCT PREG (test code = 1605) Negative On board controls acceptable with C Line (test code = 3574) Yes POCT PREG LOT # (test code = 3575) POCT PREG TEST DATE ( test code = 3576) [facility]US Gall [id number] 00:07:29EXAM: US GALL BLADDER HISTORY: 19 years-old Female; Provided indication: RULE OUT CHOLECYSTITIS . TECHNIQUE: Limited abdominal ultrasound focused on the gallbladder wasperformed. The main portal veinwas evaluated with color Doppler.Staff Forester images were obtained for the record. COMPARISON: None FINDINGS: The gallbladder is normal in size. Biliary sludge or small stones are seenwithout wall thickening or pericholecystic fluid. The patient waspremedicated although denied pain to palpation. No biliary ductal dilatation is seen. The common duct is 2 mm in diameter.[facility] POCT [id number] 23:26:00* Test Item Value Reference Range Interpretation Comme nts POCT PREG (test code = 1605) Negative On board controls acceptable with C Line (test code = 3574) Yes POCT PREG LOT # (test code = 3575) [id number] POCT PREG TEST DATE ( test code = 3576) 12/27/2025 Lab Interpretation (test cod e = 09383-6) Normal [facility] HospitalType and Screen - ONCE [id number] 10:19:00* Test Item Value Reference Range Interpretation Comme nts ABO & RH (test code = 20) O POSITIVE IAT (test code = 1185) Negative [facility] Brain wo [id number] 19:55:40MR BRAIN WO CONTRAST HISTORY: Female 19 years Vision loss, binocular concern for press COMPARISON: None TECHNIQUE: Multiplanar multi weighted imaging of the brain was obtainedwithout IV contrast FINDINGS: The ventricles and cerebral sulci are normal in caliber and configuration.No hydrocephalus, midline shift or pathological extra axial fluidcollection is present. The basal cisterns are unremarkable. There are a few scattered small foci of cortical diffusion restriction inthe right in the rightposterior parietal and bilateral frontal cortices.Additionally, there is confluent, relatively symmetric subcorticalhyperintense T2/FLAIR signal predominantly involving the occipital,posterior parietal lobes and frontal lobes. No focus of abnormalparenchymal gradient blooming is present. No abnormal fluid signal is present in the mastoid air cells or paranasalair sinuses. The T2 flow voids for the major intracranial vessels are unremarkable.[facility] HospitalRHO (D) IMMUNE [id number] 18:08:50* Test Item Value Reference Range Interpretation Comme nts RHIG CANDIDATE? (test code = 5188) No- see comment Patient is not a candidate for RhIg- Patient is Rh Positive.Performed at [facility] Laboratory Services - [facility] Blood [address] [place] [address]51Ngtk Free: [phone] No. [id number] [facility] Metabolic Panel (NA, K, CL, CO2, GLUCOSE, BUN, CREATININE, CA)2024-10-24 18:03:04* Test Item Value Reference Range Interpretation Comme nts NA (test code = 9183563066) 126 mmol/L 135-145 L K (test code = 7922660515) 3.8 mmol/L 3.5-5.0 CL (test code = 1801010223) 104 mmol/L 98-108 CO2 TOTAL (test code = 4171434474) 19 mmol/L 23-31 L AGAP (test code = 9304583615) 3 2-16 BUN (test code = 8687525874) 19 mg/dL 7-23 GLUCOSE (test code = 9891005742) 86 mg/dL 70-110 CREATININE (test code = 2160-0) 0.97 mg/dL 0.50-1.04 CALCIUM (test code = 7283565081) 6.3 mg/dL 8.6-10.6 L eGFR (test code = 69283-4) 86.5 mL/min/1.73m2 CKD-EPI eGFR (2020). Assuming creatinine has been stable day-to-day for at least three months, the eGFR indicates Category G2 (60 - 89 mL/min/1.73 m2) Lab Interpretation (test code = 91812-8) Abnormal [facility] HospitalMagnesium2024-12-29 15:59:02* Test Item Value Reference Range Interpretation Comme nts MAGNESIUM (test code = 6385909461) 6.8 mg/dL 1.7-2.4 H Lab Interpretation (test cod e = 35927-7) Abnormal [facility] HospitalVenous Cord [id number] 12:01:59* Test Item Value Reference Range Interpretation Comme nts VENOUS BASE EXCESS, CORD (te st code = 7591066522) -5.6 mEq/L VENOUS PH, CORD (test code = 6479383849) 7.34 7.25-7.45 VENOUS PC02, CORD (test code = 7500758069) 37 27-49 VENOUS PO2, CORD (test code = 7437473807) 28 17-41 VENOUS BICARBONATE, CORD (te st code = 1369694284) 20 12-29 Q[facility] Branch[facility] [id number] 11:59:43* Test Item Value Reference Range Interpretation Comme nts BASE EXCESS, CORD (test code = 1610989173) -6.3 mEq/L AC PH, CORD (BEAKER) (test c ode = 5617914274) 7.31 7.18-7.38 PC02, CORD (test code = 5005644258) 40 32-66 PO2, CORD (test code = 2369805861) 23 10-30 BICARBONATE, CORD (test code = 2395852569) 19 - [facility] Hospital[facility] Neuraxial [id number] 11:23:00 Kalani Parker MD ? ? 10/24/2024 ?5:24 AM Central Neuraxial Block Date/Time: 10/24/2024 5:23 AM Performed by: Kalani Parker MDAuthorized by: Caden Cervantes MD ?Patient Location: OBEnd Time: 10/24/2024 5:23 AMReason for Block: OB request, Patient request, Labor analgesia, Surgical anesthesia andPost-op pain managementStaff: ?Anesthesiologist: Caden Cervantes MD ?Resident/BAND LOG MILL AND CARRIAGE OPERATOR: Kalani Parker MD ?Performed by: resident/CRNAPreanesthetic Checklist: patient identified, IV checked, risks andbenefits explained, monitors and equipment checked, timeout performed, pre-op evaluation, site marked and anesthesia consentProcedure: ?Type of Neuraxial: Epidural ?Epidural Description: 1st attempt ? Sterility Prep cap, drape, gloves, hand hygiene and mask ?Patient Position: sitting ?Prep: Betadine and patient draped ? ?Monitoring: heart rate, continuous pulse ox, heart rate / toco and NIBP ?Location: lumbar (1-5) ?Lumbar: L3-L4 ?Approach: midline ? ?Technique: catheter and CARLOS saline ?Gu idance with: landmark technique}Epidural/Spinal [place] and/or Catheter: ?Epidural/Spinal Kit: BBun ?Needle Type: Tuohy ?Needle Gauge: 17 G ?Needle Length: 3.5 in (8.89 cm) ?Needle Insertion Depth:6 ?Catheter Type: multiport ? ?Catheter Size: 19 G ? ?Catheter at Skin Depth: 11 ?Number of Attempts: 1 ?Test Dose: negative and lidocaine 1.5% with epinephrine 1-to-200,000 ? ?Dose: 3 cc ? ?CatheterSecurement Method: surgical tape and TegadermAssessment: ?Block Outcome: a full evaluation is pending, patient comfortable and patient tolerated procedure well ? ?Procedure Assessment: patient tolerated procedure well with no complicationsNotes: ? Patient identified; pre-procedure verification.Patient prepped and draped in standard sterile fashion using betadine x 3Subcutaneous infiltration with 1% Lidocaine CARLOS at 6 cm; catheter secured at 11 cm with mastisol, tegaderm x2 and 3-inch clear tape.Aspiration test negative x 3Test dose negativePatient tolerated procedure well with no immediate complications Epidural expectations; PCEA explained and fall precautions given. Replaced epidural d/t one side with no levelUnHendrick [facility] BrownwoodCentral Neuraxial [id number] 01:03:00Kalani Parker MD ? ? 10/23/2024 ?7:04 PM Central Neuraxial Block Date/Time: 10/23/2024 7:03 PM Performed by: Kalani Parker MDAuthorized by: Caden Cervantes MD ?Patient Location: OBEnd Time: 10/23/2024 7:03 PMReason for Block: OB request, Patient request, Labor analgesia, Surgical anesthesia andPost-op pain managementStaff: ?Anesthesiologist: Caden Cervantes MD ?Resident/[employer] OPERATOR: Kalani Parker MD ?Performed by: resident/CRNAPreanesthetic Checklist: patient identified, IV checked, risks andbenefits explained, monitors and equipment checked, timeout performed, pre-op evaluation, site marked and anesthesia consentProcedure: ?Type of Neuraxial: Epidural ?Epidural Description: 1st attempt ? Sterility Prep cap, drape, gloves, hand hygiene and mask ?Patient Position: sitting ?Prep: Betadine and patient draped ? ?Monitoring: heart rate, continuous pulse ox, heart rate / toco and NIBP ?Location: lumbar (1-5) ?Lumbar: L3-L4 ?Approach: midline ? ?Technique: catheter and CARLOS saline ?Guidance with: landmark technique}Epidural/Spinal [place] and/or Catheter: ?Epidural/Spinal Kit: BBraun ?Needle Type: Tuohy ?Needle Gauge: 17 G ?Needle Length: 3.5 in (8.89 cm) ?Needle Insertion Depth:6 ?Catheter Type: multiport ? ?Catheter Size: 19 G ? ?Catheter at Skin Depth: 11 ?Number of Attempts: 1 ?Test Dose: negative and lidocaine 1.5% with epinephrine 1-to-200,000 ? ?Dose: 3 cc ? ?CatheterSecurement Method: surgical tape and TegadermAssessment: ?Block Outcome: a full evaluation is pending, patient comfortable and patient tolerated procedure well ? ?Procedure Assessment: patient tolerated procedure well with no complicationsNotes: ? Patient identified; pre-procedure verification.Patient prepped and draped in standard sterile fashion using betadine x 3Subcutaneous infiltration with 1% Lidocaine CARLOS at 6 cm; catheter secured at 11 cm with mastisol, tegaderm x2 and 3-inch clear tape.Aspiration test negative x 3Test dose negativePatient tolerated procedure well with no immediate complications Epidural expectations; PCEA explained and fall precautions given.[facility] Syphilis IgG/[id number] 14:51:39* Test Item Value Reference Range Interpretation Comme nts Syphilis IgG/IgM (test code = 36367-1) Nonreactive Nonreactive Syphilis Serology Interpretation (test code = 51880-6) No serologic evidence of syphilis. If recent exposure is suspected, retest in 2 to 4 weeks. NATALIIA (test code = NATALIIA) ? [facility] Ag-Ab with [id number] 05:04:12* Test Item Value Reference Range Interpretation Comme nts HIV Semi-quantitative (test code = 29977-6) 0.14 Negative NATALIIA (test code = NATALIIA) Non-reactive for HIV-1 antigen and HIV-1/HIV-2 antibodies. ?No laboratory evidence of HIV infection. ?Repeat in 2-4 weeks if acute HIV infection is suspected. [facility] HospitalHepatitis B Surface [id number] 04:53:53 * Test Item Value Reference Range Interpretation Comme nts HBsAg Semi-Quantitative (salomon t code = 5195-3) 0.09 Negative [facility]Type and Screen - ONCE [id number] 03:48:00* Test Item Value Reference Range Interpretation Comme nts ABO & RH (test code = 20) O POSITIVE IAT (test code = 1185) Negative [facility] HospitalUS biophysical [id number] 19:34:15US PELVIS > 14 WEEKS, US BIOPHYSICAL PROFILETRANSABDOMINAL/TRANSVAGINAL PELVIC ULTRASOUND, 2ND TRIMESTER HISTORY: 19 years-old; Female; Growth per MD Amezquita COMPARISON: NoneTECHNIQUE: The transvaginal exam was explained to the patient in advanceand a life skills trainer was presentin the room.Gestational age: 36 weeks 6 days by LMPLMP: 02/06/2024 FINDINGS: The fetus is in on cephalic presentation.Biparietal diameter (BPD): 8.8 cm, corresponds with a gestational age of 35weeks 4days.Head circumference (HC): 33.6 cm, corresponds with a gestational age of 38weeks 4 daysAbdominal circumference (AC): 29.7 cm, corresponds with a gestational ageof 33 weeks and 6 daysFemur length (FL): 6.2 cm, corresponds with a gestational age of 32 weeksand 3 dayCorresponding gestational age: 35 weeks and 1 dayHumeral length measures 6.1 cm, corresponds with a gestational age of 35weeks and 1 day.Estimated weight is 2316 gramsCardiac rate: 136 bpmPlacenta is anterior.35 weeks 1 day.The anatomical evaluation is limited. * breathing movements: Breathing identified however less than 20seconds. Score: 0*Gross body movements: body movements confirmed in 30 minutes.*Body muscle tone: Extremity tone visualized.*Amniotic fluid volume: 2.2 cm. Only one pocket identified. [facility] HospitalUS Pelvis > 14 [id number] 19:34:15US PELVIS > 14 WEEKS, US BIOPHYSICAL PROFILETRANSABDOMINAL/TRANSVAGINAL PELVIC ULTRASOUND, 2ND TRIMESTER HISTORY: 19 years-old; Female; Growth per Amezquita COMPARISON: NoneTECHNIQUE: The transvaginal exam was explained to the patient in advanceand a life skills trainer was presentin the room.Gestational age: 36 weeks 6 days by LMPLMP: 02/06/2024 FINDINGS: The fetus is in on cephalic presentation.Biparietal diameter (BPD): 8.8 cm, corresponds with a gestational age of 35weeks 4days.Head circumference (HC): 33.6 cm, corresponds with a gestational age of 38weeks 4 daysAbdominal circumference (AC): 29.7 cm, corresponds with a gestational ageof 33 weeks and 6 daysFemur length (FL): 6.2 cm, corresponds with a gestational age of 32 weeksand 3 dayCorresponding gestational age: 35 weeks and 1 dayHumeral length measures 6.1 cm, corresponds with a gestational age of 35weeks and 1 day.Estimated weight is 2316 gramsCardiac rate: 136 bpmPlacenta is anterior.35 weeks 1 day.The anatomical evaluation is limited. * breathing movements: Breathing identified however less than 20seconds. Score: 0*Gross body movements: body movements confirmed in 30 minutes.*Body muscle tone: Extremity tone visualized.*Amniotic fluid volume: 2.2 cm. Only one pocket identified. [facility] Urinalysis w/o Specific [id number] 21:48:00* Test Item Value Reference Range Interpretation Comme nts POCT PH U (test code = 3254) n/a 5-8 POCT U LEUK EST (test code = 3263) n/a Negative - Negative POCT U NIT (test code = 3262) n/a Negative - Negati ve POCT U PROT (test code = 3259) 3+ Negative - Negat dina POCT U GLU (test code = 3256) negative Negative - Negati ve POCT U KETONE (test code = 3258) n/a Negative - Neg ative POCT U BLD (test code = 3257) n/a Negative - Negati ve [facility] Urinalysis w/o Specific [id number] 18:56:00* Test Item Value Reference Range Interpretation Comme nts POCT PH U (test code = 3254) na 5-8 POCT U LEUK EST (test code = 3263) na Negative - Negative POCT U NIT (test code = 3262) na Negative - Negati ve POCT U PROT (test code = 3259) negative Negative - Negat dina POCT U GLU (test code = 3256) negative Negative - Negati ve POCT U KETONE (test code = 3258) na Negative - Neg ative POCT U BLD (test code = 3257) na Negative - Negati ve Lab Interpretation (test cod e = 00296-5) Normal [facility] Urinalysis w/o Specific [id number] 22:09:00* Test Item Value Reference Range Interpretation Comme [...] = 3257) n/a Negative - Negati ve [facility] HospitalDME/SUPPLY [id number] 14:15:47 Ordered by an unspecified provider.[facility] Urinalysis w/o Specific [id number] 21:15:00* Test Item Value Reference Range Interpretation Comme nts POCT PH U (test code = 3254) n.a 5-8 POCT U LEUK EST (test code = 3263) n..a Negative - Negative POCT U NIT (test code = 3262) n.a Negative - Negati ve POCT U PROT (test code = 3259) trace Negative - Negat idna POCT U GLU (test code = 3256) negative Negative - Negati ve POCT U KETONE (test code = 3258) n.a Negative - Neg ative POCT U BLD (test code = 3257) n.a Negative - Negati ve [facility] Urinalysis w/o Specific [id number] 21:20:00* Test Item Value Reference Range Interpretation Comme [...] = 3257) n/a Negative - Negati ve [facility] [id number] 20:15:00* Test Item Value Reference Range Interpretation [...] = 3257) n.a Negative - Negati ve [facility]SC[facility] LAB [id number] 16:13:06Ordered by an unspecified provider.[facility] RESULTS 2024-06-10 16:13:05Ordered by an unspecified provider.[facility] HospitalPOCT [id number] 19:44:00* Test Item Value Reference Range Interpretation Comme nts POCT PREG (test code = 1605) Positive On board controls acceptable with C Line (test code = 3574) Yes POCT PREG LOT # (test code = 3575) POCT PREG TEST DATE ( test code = 3576) [facility]PO[facility] w/o Specific [id number] 19:41:00* Test Item Value Reference Range Interpretation [...] = 3257) n/a Negative - Negati ve [facility] Consult Notes Date/Time Note Provider Source 2024-10-29 12:36:39 Department of Ophthalmology and Visual Services Consult Note Stalin Obregon 2005 [id number] Date of Service: 10/29/2024 12:36 Band Top Maker: Tucker Delcid MD Reason for Consult: " patient s/p vaginal delivery with PreEwSF with blurry vision " HPI Stalin Obregon is a 19 year old female with history of vaginal delivery at 34 weeks with preeclampsia with severe features who presents with blurry vision since delivery. No POH per patient 10/28/24 Patient reports continued blurry vision, which she feels is worsening 10/29/24 Patient reports stable symptoms Ocular ROS: Contact lens wearer - No Trauma to the eye - No Change of vision - Yes Presbyopia - No Diplopia - No Photophobia - No Photopsia and floaters - Patient thinks she may have floater 10/27/24 but unsure which eye Eye pain - No Discharge - No Redness - No Past Ocular History See HPI Ocular Family History See HPI Ocular Medications See HPI Past Medical History No past medical history on file. Family History No family history on file. Social History reports that she has never smoked. She has never been exposed to tobacco smoke. She has never used smokeless tobacco. She reports that she does not drink alcohol and does not use drugs. Medications Prior to Admission medications Medication Sig Start Date End Date Taking? Authorizing Provider acetaminophen 500 mg tablet Take 2 tablets by mouth every 8 (eight) hours as needed for Pain. 10/26/24 Yes Ranjan Wren MD docusate 100 mg capsule Take 2 capsules by mouth once daily as needed for Constipation. 10/26/24 Yes Ranjan Wren MD ferrous sulfate 325 mg (65 mg iron) tablet Take 1 tablet by mouth in the morning. 10/26/24 Yes Ranjan Wren MD ibuprofen 800 mg tablet Take 1 tablet by mouth every 8 (eight) hours as needed (pain). Take with food or milk. 10/26/24 Yes Ranjan Wren MD labetaloL 200 mg tablet Take 1 tablet by mouth every 12 (twelve) hours for 30 days. 10/26/24 11/25/24 Yes Ranjan Wren MD [id number] fum-folic () 27 mg iron- 1 mg folic tablet Take 1 tablet by mouth in the morning. 10/26/24 Yes Ranjan Wren MD Allergies Allergies Allergen Reactions First Aid Ointment [Thqvl-Ezmsl-Etqtdmx-Pramoxine] Rash Review of Systems Negative except above mentioned in the HPI BP 136/81 (BP Location: Right arm, Patient Position: Supine) | Pulse 87 | Temp 36.9 ?C (98.5 ?F) (Oral) | Resp 20 | Ht 1.626 m (5' 4.02") | Wt 83 kg (183 lb) | LMP 02/28/2024 | SpO2 99% | Unknown | BMI 31.40 kg/m? Mental Status: Oriented to Time, Place & Person: Yes Mood, Affect: Anxious, weary Ophthalmic Exam Visual acuity: Near; without correction OD: 20/400; NI PH OS: 20/200; NI PH Pupils: Dark Light Shape Reactivity APD OD 8 4 round reactive no OS 7 4 round reactive no IOP: Administered 1 drop of proparacaine into each eye. Used Tonopen applanation. OD: 13 OS: 14 Visual montilla: OD: Inferonasal quadrantanopia OS: full to confrontation Extraocular movements: OD: full OS: full Color vision: Unable 2/2 VA Slit Lamp Exam: OD OS External Normal Normal Lids/Lashes Normal Normal Conjunctiva/sclera White and quiet White and quiet Cornea Clear Clear Anterior chamber Deep and quiet Deep and quiet Iris Round and reactive Round and reactive Lens Clear Clear Vitreous Normal, no vitreous cell Normal, no vitreous cell Dilated fundus exam: Administered 1 drop of 2.5% phenylephrine and 1% tropicamide into each eye at 12:15 PM on initial exam 10/27/24 and again at 1:08 PM 10/28/24 for re-assessment at slit lamp at 78D; exam verified by faculty. Again dilated at 12:00 PM 10/29/24 - exam stable compared to 10/28/24 OD OS Disc Saucier, sharp Saucier, sharp C/D Ratio 0.3 0.3 Macula Macular edema with slight star formation Macular edema Vessels Normal caliber Normal caliber Periphery 9-12 o clock bullous Retinal Detachment infringing on macula with fluid extending under the superior arcades. Slight shifting when sitting vs laying flat, no topher retinal tear seen. 1-3 o'clock bullous retinal detachment with possible subretinal fluid as well Labs Reviewed. Radiology Hospital Encounter on 10/21/24 US biophysical profile Narrative US PELVIS > 14 WEEKS, US BIOPHYSICAL PROFILE TRANSABDOMINAL/TRANSVAGINAL PELVIC ULTRASOUND, 2ND TRIMESTER HISTORY: 19 years-old; Female; Growth per Amezquita COMPARISON: None TECHNIQUE: The transvaginal exam was explained to the patient in advance and a life skills trainer was present in the room. Gestational age: 36 weeks 6 days by LMP LMP: 02/06/2024 FINDINGS: The fetus is in on cephalic presentation. Biparietal diameter (BPD): 8.8 cm, corresponds with a gestational age of 35 weeks 4 days. Head circumference (HC): 33.6 cm, corresponds with a gestational age of 38 weeks 4 days Abdominal circumference (AC): 29.7 cm, corresponds with a gestational age of 33 weeks and 6 days Femur length (FL): 6.2 cm, corresponds with a gestational age of 32 weeks and 3 day Corresponding gestational age: 35 weeks and 1 day Humeral length measures 6.1 cm, corresponds with a gestational age of 35 weeks and 1 day. Estimated weight is 2316 grams Cardiac rate: 136 bpm Placenta is anterior. 35 weeks 1 day. The anatomical evaluation is limited. * breathing movements: Breathing identified however less than 20 seconds. Score: 0 *Gross body movements: body movements confirmed in 30 minutes. *Body muscle tone: Extremity tone visualized. *Amniotic fluid volume: 2.2 cm. Only one pocket identified. Impression Cephalic presentation of fetus with corrected gestational age of 35 weeks 1 day. BPD:6/8 (0 for breathing). Oligohydramnios. MR Brain wo contrast Narrative MR BRAIN WO CONTRAST HISTORY: Female 19 years Vision loss, binocular concern for press COMPARISON: None TECHNIQUE: Multiplanar multi weighted imaging of the brain was obtained without IV contrast FINDINGS: The ventricles and cerebral sulci are normal in caliber and configuration. No hydrocephalus, midline shift or pathological extra axial fluid collection is present. The basal cisterns are unremarkable. There are a few scattered small foci of cortical diffusion restriction in the right in the right posterior parietal and bilateral frontal cortices. Additionally, there is confluent, relatively symmetric subcortical hyperintense T2/FLAIR signal predominantly involving the occipital, posterior parietal lobes and frontal lobes. No focus of abnormal parenchymal gradient blooming is present. No abnormal fluid signal is present in the mastoid air cells or paranasal air sinuses. The T2 flow voids for the major intracranial vessels are unremarkable. Impression Relatively symmetric subcortical hyperintense T2/FLAIR signal with a few scattered foci of associated cortical restricted diffusion involving the posterior parietal and occipital lobes as well as the frontal lobes would be in keeping with clinical suspicion for PRES. US Pelvis > 14 weeks Narrative US PELVIS > 14 WEEKS, US BIOPHYSICAL PROFILE TRANSABDOMINAL/TRANSVAGINAL PELVIC ULTRASOUND, 2ND TRIMESTER HISTORY: 19 years-old; Female; Growth per MD Amezquita COMPARISON: None TECHNIQUE: The transvaginal exam was explained to the patient in advance and a life skills trainer was present in the room. Gestational age: 36 weeks 6 days by LMP LMP: 02/06/2024 FINDINGS: The fetus is in on cephalic presentation. Biparietal diameter (BPD): 8.8 cm, corresponds with a gestational age of 35 weeks 4 days. Head circumference (HC): 33.6 cm, corresponds with a gestational age of 38 weeks 4 days Abdominal circumference (AC): 29.7 cm, corresponds with a gestational age of 33 weeks and 6 days Femur length (FL): 6.2 cm, corresponds with a gestational age of 32 weeks and 3 day Corresponding gestational age: 35 weeks and 1 day Humeral length measures 6.1 cm, corresponds with a gestational age of 35 weeks and 1 day. Estimated weight is 2316 grams Cardiac rate: 136 bpm Placenta is anterior. 35 weeks 1 day. The anatomical evaluation is limited. * breathing movements: Breathing identified however less than 20 seconds. Score: 0 *Gross body movements: body movements confirmed in 30 minutes. *Body muscle tone: Extremity tone visualized. *Amniotic fluid volume: 2.2 cm. Only one pocket identified. Impression Cephalic presentation of fetus with corrected gestational age of 35 weeks 1 day. BPD:6/8 (0 for breathing). Oligohydramnios. 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 - VA 20/800 and 20/400, IOP wnl, no RAPD - Optic discs appear sharp OU. Currently low concern for optic nerve edema per indirect fundoscopy - DFE initially suggestive of possible transient macular ischemia OU due to whitish areas tracking along the arcades with demarcation just past termination of arcades. May be related to hypertensive episodes. On reassessment the following day, these whitish areas were not as prominent, and instead there was macular edema - OD with 9-12 o clock bullous Retinal Detachment, initially not involving the macula, with possible subretinal fluid. Slight shifting when sitting vs laying flat, no obvious retinal tear could be identified - OD area of supratemporal detachment in correlation with inferior quadrantanopia isolated to right eye - MRI Brain WO contrast impression: "Relatively symmetric subcortical hyperintense T2/FLAIR signal with a few scattered foci of associated cortical restricted diffusion involving the posterior parietal and occipital lobes as well as the frontal lobes would be in keeping with clinical suspicion for PRES." - VA changes may be explained by a combination of PRES with macular edema - Plt count, ALT, AST wnl - If the detachment is of serous etiology, in the setting of preeclampsia, this may be 2/2 choroidal ischemia from intense arteriolar vasospasm, and there is a possibility of resolution if Retinal Pigment Epithelium resorbs subretinal fluid over time - There is also a possibility that the etiology may be rhegmatogenous, instead of serous / exudative; given bullous nature of detachments, there may be hidden breaks or tears in the retina that are not visible on exam. 10/28/24 Retinal detachments noted both in the right and left eye on today's exam at slit lamp. No nerve swelling. Presumed etiology of detachments may be serous vs exudative at this time given no obvious tear/break/hole could be identified on exam. Requires re-evaluation by retina specialist given the presence of macular edema bilaterally, and the right retinal detachment with extension of subretinal fluid under the superior arcades into the macula. 10/29/24 - slight improvement in VA OS>OD (despite patient subjectively reporting no improvement) - stable examination with bullous presumed serous RD R>L Recommendations: - Recommend primary team consultation of Neurology in the setting of PRES - If the detachments are serous, they may resolve . This is a condition that will require monitoring by retina specialists long-term. However, given the current presence of bilateral macular edema likely also affecting the patient's center vision at this time, and due to no retina coverage at [facility] currently or for the next several days, it was previously recommended by ophthalmology faculty that the patient be transferred to a center with retinal coverage in case her condition acutely progresses to need retinal intervention. - On reassessment 10/29/24, ophthalmology faculty think the patient is stable at this time given and are deferring a transfer recommendation - Will need follow-up imaging and ophthalmology follow up outpatient to assess resolution of lesions seen on MRI and to monitor for clinical improvement - If patient chooses to pursue outpatient follow with [facility], please refer to Dr Fatuma Baig, neuro-ophthalmology within 2-4 weeks of discharge - Ophthalmology will continue to follow daily Seen and discussed Dr. Barrera, faculty. Tucker Delcid MD Ophthalmology and Visual Sciences, PGY-2 RCYCLE BUILDER Associated attestation - Carlin Barrera MD - 11/01/2024 9:31 AM MOTORCYCLE BUILDER I discussed the case and examined the patient (on 10/29/24) with Dr. Delcid and agree with her findings and assessment and plan. Carlin Barrera MD Professor Dept. of Ophthalmology & Visual Sciences [facility] OPHTHALMOLOGY [facility] 2024-10-28 08:22:23 Department of Ophthalmology and Visual Services Consult Note Stalin Obregon 2005 [id number] Date of Service: 10/28/2024 08:22 Band Top Maker: Tucker Delcid MD Reason for Consult: " patient s/p vaginal delivery with PreEwSF with blurry vision " HPI Stalin Obregon is a 19 year old female with history of vaginal delivery at 34 weeks with preeclampsia with severe features who presents with blurry vision since delivery. No POH per patient 10/28/24 Patient reports continued blurry vision, which she feels is worsening Ocular ROS: Contact lens wearer - No Trauma to the eye - No Change of vision - Yes Presbyopia - No Diplopia - No Photophobia - No Photopsia and floaters - Patient thinks she may have floater 10/27/24 but unsure which eye Eye pain - No Discharge - No Redness - No Past Ocular History See HPI Ocular Family History See HPI Ocular Medications See HPI Past Medical History No past medical history on file. Family History No family history on file. Social History reports that she has never smoked. She has never been exposed to tobacco smoke. She has never used smokeless tobacco. She reports that she does not drink alcohol and does not use drugs. Medications Prior to Admission medications Medication Sig Start Date End Date Taking? Authorizing Provider acetaminophen 500 mg tablet Take 2 tablets by mouth every 8 (eight) hours as needed for Pain. 10/26/24 Yes Ranjan Wren MD docusate 100 mg capsule Take 2 capsules by mouth once daily as needed for Constipation. 10/26/24 Yes Ranjan Wren MD ferrous sulfate 325 mg (65 mg iron) tablet Take 1 tablet by mouth in the morning. 10/26/24 Yes Ranjan Wren MD ibuprofen 800 mg tablet Take 1 tablet by mouth every 8 (eight) hours as needed (pain). Take with food or milk. 10/26/24 Yes Ranjan Wren MD labetaloL 200 mg tablet Take 1 tablet by mouth every 12 (twelve) hours for 30 days. 10/26/24 11/25/24 Yes Ranjan Wren MD [id number] fum-folic () 27 mg iron- 1 mg folic tablet Take 1 tablet by mouth in the morning. 10/26/24 Yes Ranjan Wren MD Allergies Allergies Allergen Reactions First Aid Ointment [Pyioi-Vidrb-Bbmpbma-Pramoxine] Rash Review of Systems Negative except above mentioned in the HPI BP (!) 140/94 | Pulse 90 | Temp 36.5 ?C (97.7 ?F) | Resp 18 | Ht 1.626 m (5' 4.02") | Wt 83 kg (183 lb) | LMP 02/28/2024 | SpO2 99% | Unknown | BMI 31.40 kg/m? Mental Status: Oriented to Time, Place & Person: Yes Mood, Affect: Anxious, weary Ophthalmic Exam Visual acuity: Near; without correction OD: 20/400-1; NI PH OS: 20/400; NI PH Pupils: Dark Light Shape Reactivity APD OD 8 4 round reactive no OS 7 4 round reactive no IOP: Administered 1 drop of proparacaine into each eye. Used Tonopen applanation. OD: 14 OS: 15 Visual montilla: OD: Inferonasal quadrantanopia OS: full to confrontation Extraocular movements: OD: full OS: full Color vision: Unable 2/2 VA Penlight Exam: OD OS External Normal Normal Lids/Lashes Normal Normal Conjunctiva/sclera White and quiet White and quiet Cornea Clear Clear Anterior chamber Deep and formed Deep and formed Iris Round and reactive Round and reactive Lens Clear Clear Vitreous Normal Normal Dilated fundus exam: Administered 1 drop of 2.5% phenylephrine and 1% tropicamide into each eye at 12:15 PM on initial exam 10/27/24 and again at 1:08 PM 10/28/24 for re-assessment at slit lamp at 78D; exam verified by faculty OD OS Disc Saucier, sharp Saucier, sharp C/D Ratio 0.3 0.3 Macula Macular edema with slight star formation Macular edema Vessels Normal caliber Normal caliber Periphery 9-12 o clock bullous Retinal Detachment infringing on macula with fluid extending under the superior arcades. Slight shifting when sitting vs laying flat, no topher retinal tear seen 1-3 o'clock retinal detachment with possible subretinal fluid as well Labs Reviewed. Radiology Hospital Encounter on 10/21/24 US biophysical profile Narrative US PELVIS > 14 WEEKS, US BIOPHYSICAL PROFILE TRANSABDOMINAL/TRANSVAGINAL PELVIC ULTRASOUND, 2ND TRIMESTER HISTORY: 19 years-old; Female; Growth per Amezquita COMPARISON: None TECHNIQUE: The transvaginal exam was explained to the patient in advance and a life skills trainer was present in the room. Gestational age: 36 weeks 6 days by LMP LMP: 02/06/2024 FINDINGS: The fetus is in on cephalic presentation. Biparietal diameter (BPD): 8.8 cm, corresponds with a gestational age of 35 weeks 4 days. Head circumference (HC): 33.6 cm, corresponds with a gestational age of 38 weeks 4 days Abdominal circumference (AC): 29.7 cm, corresponds with a gestational age of 33 weeks and 6 days Femur length (FL): 6.2 cm, corresponds with a gestational age of 32 weeks and 3 day Corresponding gestational age: 35 weeks and 1 day Humeral length measures 6.1 cm, corresponds with a gestational age of 35 weeks and 1 day. Estimated weight is 2316 grams Cardiac rate: 136 bpm Placenta is anterior. 35 weeks 1 day. The anatomical evaluation is limited. * breathing movements: Breathing identified however less than 20 seconds. Score: 0 *Gross body movements: body movements confirmed in 30 minutes. *Body muscle tone: Extremity tone visualized. *Amniotic fluid volume: 2.2 cm. Only one pocket identified. Impression Cephalic presentation of fetus with corrected gestational age of 35 weeks 1 day. BPD:6/8 (0 for breathing). Oligohydramnios. MR Brain wo contrast Narrative MR BRAIN WO CONTRAST HISTORY: Female 19 years Vision loss, binocular concern for press COMPARISON: None TECHNIQUE: Multiplanar multi weighted imaging of the brain was obtained without IV contrast FINDINGS: The ventricles and cerebral sulci are normal in caliber and configuration. No hydrocephalus, midline shift or pathological extra axial fluid collection is present. The basal cisterns are unremarkable. There are a few scattered small foci of cortical diffusion restriction in the right in the right posterior parietal and bilateral frontal cortices. Additionally, there is confluent, relatively symmetric subcortical hyperintense T2/FLAIR signal predominantly involving the occipital, posterior parietal lobes and frontal lobes. No focus of abnormal parenchymal gradient blooming is present. No abnormal fluid signal is present in the mastoid air cells or paranasal air sinuses. The T2 flow voids for the major intracranial vessels are unremarkable. Impression Relatively symmetric subcortical hyperintense T2/FLAIR signal with a few scattered foci of associated cortical restricted diffusion involving the posterior parietal and occipital lobes as well as the frontal lobes would be in keeping with clinical suspicion for PRES. US Pelvis > 14 weeks Narrative US PELVIS > 14 WEEKS, US BIOPHYSICAL PROFILE TRANSABDOMINAL/TRANSVAGINAL PELVIC ULTRASOUND, 2ND TRIMESTER HISTORY: 19 years-old; Female; Growth per MD Amezquita COMPARISON: None TECHNIQUE: The transvaginal exam was explained to the patient in advance and a life skills trainer was present in the room. Gestational age: 36 weeks 6 days by LMP LMP: 02/06/2024 FINDINGS: The fetus is in on cephalic presentation. Biparietal diameter (BPD): 8.8 cm, corresponds with a gestational age of 35 weeks 4 days. Head circumference (HC): 33.6 cm, corresponds with a gestational age of 38 weeks 4 days Abdominal circumference (AC): 29.7 cm, corresponds with a gestational age of 33 weeks and 6 days Femur length (FL): 6.2 cm, corresponds with a gestational age of 32 weeks and 3 day Corresponding gestational age: 35 weeks and 1 day Humeral length measures 6.1 cm, corresponds with a gestational age of 35 weeks and 1 day. Estimated weight is 2316 grams Cardiac rate: 136 bpm Placenta is anterior. 35 weeks 1 day. The anatomical evaluation is limited. * breathing movements: Breathing identified however less than 20 seconds. Score: 0 *Gross body movements: body movements confirmed in 30 minutes. *Body muscle tone: Extremity tone visualized. *Amniotic fluid volume: 2.2 cm. Only one pocket identified. Impression Cephalic presentation of fetus with corrected gestational age of 35 weeks 1 day. BPD:6/8 (0 for breathing). Oligohydramnios. 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 - VA 20/800 and 20/400, IOP wnl, no RAPD - Optic discs appear sharp OU. Currently low concern for optic nerve edema per indirect fundoscopy - DFE initially suggestive of possible transient macular ischemia OU due to whitish areas tracking along the arcades with demarcation just past termination of arcades. May be related to hypertensive episodes. On reassessment the following day, these whitish areas were not as prominent, and instead there was macular edema - OD with 9-12 o clock bullous Retinal Detachment, initially not involving the macula, with possible subretinal fluid. Slight shifting when sitting vs laying flat, no obvious retinal tear could be identified - OD area of supratemporal detachment in correlation with inferior quadrantanopia isolated to right eye - MRI Brain WO contrast impression: "Relatively symmetric subcortical hyperintense T2/FLAIR signal with a few scattered foci of associated cortical restricted diffusion involving the posterior parietal and occipital lobes as well as the frontal lobes would be in keeping with clinical suspicion for PRES." - VA changes may be explained by a combination of PRES with macular edema - Plt count, ALT, AST wnl - If the detachment is of serous etiology, in the setting of preeclampsia, this may be 2/2 choroidal ischemia from intense arteriolar vasospasm, and there is a possibility of resolution if Retinal Pigment Epithelium resorbs subretinal fluid over time - There is also a possibility that the etiology may be rhegmatogenous, instead of serous / exudative; given bullous nature of detachments, there may be hidden breaks or tears in the retina that are not visible on exam. 10/28/24 Retinal detachments noted both in the right and left eye on today's exam at slit lamp. No nerve swelling. Presumed etiology of detachments may be serous vs exudative at this time given no obvious tear/break/hole could be identified on exam. Requires re-evaluation by retina specialist given the presence of macular edema bilaterally, and the right retinal detachment with extension of subretinal fluid under the superior arcades into the macula. Recommendations: - Recommend primary team consultation of Neurology in the setting of PRES - If the detachments are serous, they may resolve . This is a condition that will require monitoring by retina specialists long-term. However, given the current presence of bilateral macular edema likely also affecting the patient's center vision at this time, and due to no retina coverage at [facility] currently or for the next several days, it is recommended by ophthalmology faculty that the patient be transferred to a center with retinal coverage in case her condition acutely progresses to need retinal intervention. - Will need follow-up imaging and ophthalmology follow up outpatient to assess resolution of lesions seen on MRI and to monitor for clinical improvement - If patient chooses to pursue outpatient follow with [facility], please refer to Dr Fatuma Baig, neuro-ophthalmology within 2-4 weeks of discharge Seen and discussed Dr. Baig, faculty. Tucker Delcid MD Ophthalmology and Visual Sciences, PGY-2 RCYCLE BUILDER Associated attestation - Fatuma Baig MD - 10/29/2024 11:20 AM MOTORCYCLE BUILDER I have reviewed and personally examined this patient with Dr. Delcid and I agree with the findings, assessments, and plans, with my revisions and additional details as noted. I actively participated in the decision-making process. 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 MRI brain showed restricted diffusion in the posterior parietal, occipital, and frontal lobes c/w PRES. Neurology consultation is recommended. In addition to controlling her general condition, retina consultation is also recommended given the bilaterality and severity. Fatuma Baig MD Straightening Press Operator Helper [facility] Department of Ophthalmology [facility] 2024-10-26 08:01:03 Associated Order(s): CONSULT WOOD HACKER-ADULT Images from the original note were not included. Reason for consult - please give recommendation or opinion on: edinburgh scale score of 9 CARE MANAGEMENT Care Coordinators/Social Workers/CM Specialists/Utilization Review/Patient Placement & Transfer Center 10/26/2024 8:01 AM Production Operations Inspector Note Mental Health concerns addressed, NICU SFA completed. Please see Evelyn Stahl LMSW Production Operations Inspector Progress Note on 10/25/24 @1508. Evelyn Stahl LMSW [facility] Production Operations Inspector Care Management O: [phone] F: [phone] [email or web address] - Health History and Physical Notes Date/Time Note Provider Source 2024-10-22 16:54:32 TRIAGE/L&D HISTORY & PHYSICAL IDENTIFYING DATA Stalin Obregon is 19 year old, /White, 33w6d, female with KIAH 12/04/2024, by Last Menstrual Period. : 2005 Primary Care Physician: Natalee Amezquita CHIEF COMPLAINT Transfer from [place] due to PreEwSF HISTORY OF PRESENT ILLNESS Stalin Obregon is a 19 year old at 33w6d who presents as a transfer due to newly diagnosed PreEwSF based on Cr 1.11 here for higher level of care. Patient denies vaginal bleeding, denies leakage of fluid, denies contractions. She reports a mild EID that she thinks is due to the drive over, and the lack of food, water and sleep over the last few days. She does not want anything for the EID at this time and desires to sleep in her room for now. Patient denies nausea/vomiting, denies RUQ pain, denies visual abnormalities. Endorses normal movement. PAST OBSTETRIC HISTORY OB History Para Term AB Living 1 SAB IAB Ectopic Multiple Live Births # Outcome Date GA Lbr Kenneth/2nd Weight Sex Type Anes PTL Lv 1 Current PAST MEDICAL HISTORY Problem list: Patient Active Problem List Diagnosis Date Noted Preeclampsia, third trimester 10/21/2024 Non-reactive NST (non-stress test) 10/21/2024 Oligohydramnios in third trimester, single or unspecified fetus 10/21/2024 Positive test for herpes simplex virus (HSV) antibody 10/20/2024 Anemia in , third trimester 10/20/2024 33 weeks gestation of 10/19/2024 Obesity (BMI 30-39.9) 10/19/2024 Palpitations 10/13/2024 Heartburn during in third trimester 10/13/2024 Dizziness and giddiness 07/20/2024 Personal history of gallstones 07/20/2024 Chlamydia trachomatis infection of lower genitourinary sites 05/31/2024 Operations: No past surgical history on file. No past medical history on file. CURRENT HEALTH STATUS Medications: Current Facility-Administered Medications Medication Dose Route Frequency Last Rate Last Admin calcium gluconate 100 mg/mL (10%) injection 1,000 mg 1,000 mg Slow IV Push PRN - SEE INSTRUCTIONS [id number] IV infusion 1,000 mL 1,000 mL IV Infusion CONTINUOUS LORazepam (ATIVAN) injection 2 mg 2 mg Intravenous PRN - SEE INSTRUCTIONS magnesium sulfate in water 2 gram/50 mL (4 %) infusion 2 g 2 g IV Piggyback PRN - SEE INSTRUCTIONS magnesium sulfate in water 4 gram/50 mL (8 %) IV Piggyback 4 g 4 g IV Piggyback PRN - SEE INSTRUCTIONS magnesium sulfate loading dose from bag 4 g IV Infusion ONCE And magnesium sulfate in water for injection 20 gram/500 mL (4 %) IV infusion 1 g/hr IV Infusion CONTINUOUS 25 mL/hr at 10/22/24 1441 1 g/hr at 10/22/24 1441 lactated ringers IV infusion 1,000 mL 1,000 mL IV Infusion CONTINUOUS 75 mL/hr at 10/22/24 1441 Rate Verify at 10/22/24 1441 Allergies and drug reactions: Patient has no known allergies. HOME MEDICATIONS Medications Prior to Admission Medication Sig Dispense Refill Last Dose ferrous sulfate 325 mg (65 mg iron) tablet Take 1 tablet by mouth in the morning and 1 tablet in the evening. 60 tablet 2 Past Month vit no.[id number] ( VITAMIN) Take 1 tablet by mouth in the morning. 30 tablet 4 Past Week SOCIAL HISTORY Tobacco History: Social History Tobacco Use Smoking Status Never Passive exposure: Never Smokeless Tobacco Never Drug History: Social History Substance and Sexual Activity Drug Use Never Alcohol History: Social History Substance and Sexual Activity Alcohol Use Never FAMILY HISTORY No family history on file. REVIEW OF SYSTEMS General: negative Skin: negative HEENT: negative Neck: negative HEME: negative Resp: negative Cardio: negative GI: negative : negative Endo: negative Neuro: negative Back: negative DUSTY: negative Psych: negative VITAL SIGNS BP: (124-156)/(69-103) Temp: [36.3 ?C (97.3 ?F)-36.9 ?C (98.4 ?F)] Temp source: Oral (10/22 1630) Pulse: [55-106] Resp: [16-22] SpO2: [96 %-100 %] Height: -- Weight: -- BMI (calculated): -- PHYSICAL EXAMINATIONS General: patient alert and in no acute distress HEENT: symmetric, negative for masses Lungs: unlabored breathing Breast: deferred Cardiology: peripheral pulses intact and regular Abdomen: soft, non-tender, non-distended, no liver, spleen or abnormal masses palpated and Gravid Extremities: no clubbing, cyanosis, or edema Neuro: patient moving all extremities, no facial droop : SSE: No lesions. No valsalva or pooling. REVIEW OF LABORATORY, PATHOLOGY, AND RADIOLOGY DATA Lab results: Type & Screen Lab Results Component Value Date/Time IABORH O POSITIVE 10/21/2024 01:46 PM IAT Negative 10/21/2024 01:46 PM Serologies Lab Results Component Value Date/Time VZVIGG Negative 05/27/2024 03:36 PM RUBG Positive 05/27/2024 03:36 PM HBSAG Negative 05/27/2024 03:36 PM HBSAG 0.16 05/27/2024 03:36 PM Chlamydia Lab Results Component Value Date/Time VCAA Negative 07/20/2024 04:41 PM Group B Strep Lab Results Component Value Date/Time CGB Negative 10/19/2024 06:09 AM GTT Lab Results Component Value Date/Time [id number] 135 09/07/2024 11:47 AM CBC Lab Results Component Value Date/Time HGB 9.0 (L) 10/22/2024 12:25 PM HCT 27.1 (L) 10/22/2024 12:25 PM PLT 292 10/22/2024 12:25 PM Active Hospital Problems Diagnosis Date Noted Preeclampsia, third trimester 10/21/2024 Non-reactive NST (non-stress test) 10/21/2024 Oligohydramnios in third trimester, single or unspecified fetus 10/21/2024 Positive test for herpes simplex virus (HSV) antibody 10/20/2024 Anemia in , third trimester 10/20/2024 33 weeks gestation of 10/19/2024 Personal history of gallstones 07/20/2024 Resolved Hospital Problems No resolved problems to display. Present on Admission: Preeclampsia, third trimester Positive test for herpes simplex virus (HSV) antibody Personal history of gallstones 33 weeks gestation of Anemia in , third trimester Non-reactive NST (non-stress test) Oligohydramnios in third trimester, single or unspecified fetus Placenta Accreta Screening Prior ? : No Prior Uterine Surgery?: No Placenta low lying/previa in current ? : No Screening outcome: A positive screening outcome indicates a history of prior delivery or prior uterine surgery, AND the presence of either a placenta low lying/previa or ultrasound suspicion of PASD in the current . Negative screening. ASSESSMENT AND PLAN Stalin Obregon is a 19 year old at 33w6d by d/u(12) who presents as a transfer from [facility] for higher level of care due to PreEwSF. Pre-eclampsia with severe features - Ruled in 10/22 based on BP criteria and Cr 1.11 - Transferred from [place] for higher level of care due to prematurity - s/p steroid benefit 10/21/2024 - On Mag gtt - BP in 100s-130s/60s-70s - BP in triage 120s-140s/80s-100s - Endorses mild EID, but thinks this is due to ride to this hospital, not eating much, and poor sleep the last few days Recent Labs 10/22/24 1225 HGB 9.0* PLT 292 CREAT 1.11* URICACID 7.2* ALT 30 AST 39 LDH 207 Plan: Admit for IOL with FB at midnight Oligohydramnios - KELLY 4 cm today - ROM neg x4 - Previously noted as of 10/21 Gallstones - Seen by general surgery on 07/22/24. - Denies s/s today. - Will refer to gen surg after delivery HSV 1 IgG positive - Positive on 05/27/24 - Denies s/s - SSE: No lesions Antepartum course reviewed - 1 h 135, sero negative, Rimmune, VZVnot immune, HPV not immune, O positive/IAT negative, GBS negative, Pap underage - H/H, plt: 9.0 / 27.1, 292 on 10/22/24 - PP control plan: Undecided, but declines for now - [facility] Fetus - Presentation on admission: cephalic - anterior placenta - EFW: 2316 g, 50%tile based on radiology US 10/21 - EFW 2349 g, 50%tile on BSUS today. KELLY 4 cm. - FHT reactive and reassuring - Normal anatomy scan D/w Dr. Carlos Enrique Armas MD RCYCLE BUILDER Associated attestation - Haleigh Perdue MD - 10/23/2024 8:25 AM MOTORCYCLE BUILDER I was L&D faculty on 10/22/2024 and agree with H&P below. Briefly, patient is a 19 year old at 33w6d who presented for severe pre-eclampsia. Admit for delivery at 34 weeks I discussed the plan of care with the residents. Haleigh Montes MD [facility] - [facility] 2024-10-21 15:30:00 TRIAGE HISTORY & PHYSICAL IDENTIFYING DATA Stalin Obregon is 19 year old, /White, 33w5d, female with KIAH 12/04/2024, by Last Menstrual Period. : 2005 Primary Care Physician: Natalee Amezquita CHIEF COMPLAINT NRNST HISTORY OF PRESENT ILLNESS Stalin Obregon is a 19 year old female at 33w5d presenting from clinic due to non-reactive NST. Reports good FM. Denies vaginal bleeding, LOF, or regular contractions. Denies symptoms of PreE. PAST OBSTETRIC HISTORY OB History Para Term AB Living 1 SAB IAB Ectopic Multiple Live Births # Outcome Date GA Lbr Kenneth/2nd Weight Sex Type Anes PTL Lv 1 Current PAST MEDICAL HISTORY Problem list: Patient Active Problem List Diagnosis Date Noted Preeclampsia, third trimester 10/21/2024 Non-reactive NST (non-stress test) 10/21/2024 Oligohydramnios in third trimester, single or unspecified fetus 10/21/2024 Positive test for herpes simplex virus (HSV) antibody 10/20/2024 Anemia in , third trimester 10/20/2024 33 weeks gestation of 10/19/2024 Obesity (BMI 30-39.9) 10/19/2024 Palpitations 10/13/2024 Heartburn during in third trimester 10/13/2024 Dizziness and giddiness 07/20/2024 Personal history of gallstones 07/20/2024 Chlamydia trachomatis infection of lower genitourinary sites 05/31/2024 Operations: No past surgical history on file. No past medical history on file. CURRENT HEALTH STATUS Medications: Current Facility-Administered Medications Medication Dose Route Frequency Last Rate Last Admin lactated ringers IV infusion 1,000 mL 1,000 mL IV Infusion CONTINUOUS 125 mL/hr at 10/21/24 1523 1,000 mL at 10/21/24 1523 Allergies and drug reactions: Patient has no known allergies. HOME MEDICATIONS Medications Prior to Admission Medication Sig Dispense Refill Last Dose ferrous sulfate 325 mg (65 mg iron) tablet Take 1 tablet by mouth in the morning and 1 tablet in the evening. 60 tablet 2 Past Month vit no.[id number] ( VITAMIN) Take 1 tablet by mouth in the morning. 30 tablet 4 Past Week SOCIAL HISTORY Tobacco History: Social History Tobacco Use Smoking Status Never Passive exposure: Never Smokeless Tobacco Never Drug History: Social History Substance and Sexual Activity Drug Use Never Alcohol History: Social History Substance and Sexual Activity Alcohol Use Never FAMILY HISTORY No family history on file. REVIEW OF SYSTEMS General: negative Constitutional: negative Eyes: negative ENT/Mouth: negative Cardiovascular: negative Respiratory: negative Gastrointestinal:negative Genitourinary: negative Musculoskeletal: negative Skin/breast: negative Neurological: negative Psychiatric: negative Endocrine: negative Hemat/Lymph: negative Allergic/Immuno:none VITAL SIGNS BP: (119-155)/(73-100) Temp: [36.7 ?C (98 ?F)-36.8 ?C (98.2 ?F)] Temp source: Oral (10/21 1401) Pulse: [80-112] Resp: [16-18] SpO2: [98 %-100 %] Height: [162.6 cm (5' 4")] Weight: [83.3 kg (183 lb 9.6 oz)] BMI (calculated): [31.51] PHYSICAL EXAMINATIONS General: patient alert and in no acute distress HEENT: symmetric, negative for masses Lungs: unlabored breathing Cardiology: peripheral pulses intact and regular, generalized trace edema, +1 edema to bilateral lower extremities, Abdomen: soft, non-tender, non-distended, no liver, spleen or abnormal masses palpated and Gravid Extremities: no clubbing, cyanosis, or edema Neuro: patient moving all extremities, no facial droop : Small amounts of thick white discharge present, no pooling, valsalva and nitrizine negative. SVE: fingertip/ REVIEW OF LABORATORY, PATHOLOGY, AND RADIOLOGY DATA Lab results: Type & Screen HIV Hep B Syphilis Chlamydia ABO & RH Date Value Ref Range Status 10/21/2024 O POSITIVE Final No results found for: "HIVMULTIPLEX" No components found for: "HBSHBSAG" No results found for: "SYPIGG" C. trachomatis Nucleic Acid Date Value Ref Range Status 07/20/2024 Negative Negative Final IAT Date Value Ref Range Status 10/21/2024 Negative Final Varicella Rubella Glucose Group B Strep CBC VZV IgG antibody Date Value Ref Range Status 05/27/2024 Negative Negative Final Rubella screen IgG Date Value Ref Range Status 05/27/2024 Positive Negative Final GLUC 1 HR Date Value Ref Range Status 09/07/2024 135 120 - 170 mg/dL Final No results found for: "CGBS" HGB Date Value Ref Range Status 10/19/2024 10.6 (L) 11.6 - 15.0 g/dL Final HCT Date Value Ref Range Status 10/19/2024 32.6 (L) 35.7 - 45.2 % Final PLT Date Value Ref Range Status 10/19/2024 319 166 - 358 10*3/?L Final Active Hospital Problems Diagnosis Date Noted Preeclampsia, third trimester 10/21/2024 Non-reactive NST (non-stress test) 10/21/2024 Oligohydramnios in third trimester, single or unspecified fetus 10/21/2024 Positive test for herpes simplex virus (HSV) antibody 10/20/2024 Anemia in , third trimester 10/20/2024 33 weeks gestation of 10/19/2024 Personal history of gallstones 07/20/2024 Resolved Hospital Problems No resolved problems to display. Present on Admission: Preeclampsia, third trimester Positive test for herpes simplex virus (HSV) antibody Personal history of gallstones 33 weeks gestation of Anemia in , third trimester Non-reactive NST (non-stress test) Oligohydramnios in third trimester, single or unspecified fetus ASSESSMENT AND PLAN Stalin Obregon is a 19 year old at 33w5d who presents from clinic due to NRNST. NRNST Oligohydramnios - NRNST in clinic today. - Reports good FM. Denies vaginal bleeding, LOF, or regular contractions. Denies symptoms of PreE. - FHT reactive/reassuring for gestational age. - Western: small ctx irregular every 4-10+ min - BPP done today in Triage abnormal 04/03 (0 for breathing), KELLY 2.2cm (only one pocket identified) ruling in for Oligohydramnios. - EFW 2316g, 50%ile on scan today. - Patient reports she has been trickling small amounts of clear, thin fluid for several days, unsure of when it started, thought it could be urine. - 1L LR given, placed Trendelenburg for 30min. - Spec exam wnl, no pooling, valsalva and nitrizine negative, fern negative for ROM. - Plan: BPP results reviewed by MD Amezquita, recommended overnight observation for continuous monitoring and IVF. PreEclampsia - Patient ruled in for PreE due to mild ranging BP >4hr apart, elevated tox labs on 10/19/24 - Denies symptoms of PreE. - BP mild range in Triage Gallstones - Seen by general surgery on 07/22/24. - Denies s/s today. - Plan: Follow-up after delivery unless clinically indicated otherwise. HSV 1 IgG positive - Positive on 05/27/24 - Denies s/s - Plan: Suppression at 36 weeks unless clinically indicated otherwise. Anemia - H/H 10.6 / 32.6 on 10/19/24 - On iron supplement Antepartum course reviewed - 1 h wnl, sero neg, RI, VZVNI, O+/neg, GBS pending, Pap underage - H/H, plt: 10.6 / 32.6, 319 on 10/19/24 - PVT of MD Amezquita Fetus - EFW: 78%ile, cephalic presentation, anterior no previa placenta on MFM 08/06/24 - Normal anatomy scan, AFP neg, NIPT low risk, Horizon neg. Placenta Accreta Screening Prior ? : No Prior Uterine Surgery?: No Placenta low lying/previa in current ? : No Screening outcome: Negative screening. PLAN: BPP results reviewed by MD Amezquita, recommended overnight observation for continuous monitoring and IVF. Luma Abreu MSN, FIELD MARKETING TEAM LEADER, VETERINARY INSPECTOR-C Informed consent discussed with the patient, including: condition, proposed care, treatments and services, alternative forms of treatment, and risks of no treatment. Details discussed around the procedures to be used, and the risks and hazards involved, potential benefits, and side effects of the patient s proposed care, treatment, and services; the likelihood of the patient achieving his or her goals; and any potential problems that might occur during recuperation. Reasonable alternative also discussed with the patient s proposed care, treatment, and services. The discussion encompasses risks, benefits, and side effects related to the alternative and risks related to not receiving the proposed care, treatment, and services. RCYCLE BUILDER Associated attestation - Natalee Amezquita MD - 10/21/2024 5:00 PM MOTORCYCLE BUILDER Agreed with BAKERY TECHNICIAN: strip reactive and reassuring. BPP 04/03, -2 for breathing. Only one pocket of fluid noted, measured 2.2 cm. PPROM ruled out at this time. Will keep overnight for continuous EFM and IV/PO hydration. Will repeat speculum exam in am to re-evaluate for PPROM. Will repeat BPP tomorrow. Natalee Amezquita MD 10/21/2024 5:00 PM [facility] 2024-10-19 05:38:33 TRIAGE HISTORY & PHYSICAL IDENTIFYING DATA Stalin Obregon is 19 year old, /White, 33w3d, female with KIAH 12/04/2024, by Last Menstrual Period. : 2005 Primary Care Physician: Natalee Amezquita CHIEF COMPLAINT N/V/abdominal pain HISTORY OF PRESENT ILLNESS Stalin Obregon is a 19 year old female @ 33w3d presented for N/V and abdominal pain. Patient has a hx of gallstones. She ate spicy chips Friday night. Abdominal pain started at 9 am Friday morning, resolved after 10 minutes and then pain started again around 4 pm, ongoing with N/V. She thus presented to ER for further evaluation. +FM. No VB, LOF, or CTX. No pre-eclampsia sx or other complaints. Pain/N/V has resolved ~ 10 pm last night. Tolerating water and ice chips overnight. PAST OBSTETRIC HISTORY OB History Para Term AB Living 1 SAB IAB Ectopic Multiple Live Births # Outcome Date GA Lbr Kenneth/2nd Weight Sex Type Anes PTL Lv 1 Current PAST MEDICAL HISTORY Problem list: Patient Active Problem List Diagnosis Date Noted 33 weeks gestation of 10/19/2024 Obesity (BMI 30-39.9) 10/19/2024 uterine contractions in third trimester, antepartum 10/19/2024 Nausea and vomiting during 10/19/2024 Elevated BP without diagnosis of hypertension 10/19/2024 Palpitations 10/13/2024 Heartburn during in third trimester 10/13/2024 Dizziness and giddiness 07/20/2024 Leg pain, anterior, right 07/20/2024 Personal history of gallstones 07/20/2024 Chlamydia trachomatis infection of lower genitourinary sites 05/31/2024 Normal in third trimester 05/27/2024 Operations: No past surgical history on file. No past medical history on file. CURRENT HEALTH STATUS Medications: Current Facility-Administered Medications Medication Dose Route Frequency Last Rate Last Admin NaCl 0.9% (NS) IV infusion 1,000 mL 1,000 mL IV Infusion CONTINUOUS 150 mL/hr at 10/19/24 0255 1,000 mL at 10/19/24 0255 ondansetron (ZOFRAN (PF)) injection 4 mg 4 mg Slow IV Push Q6HPRN 4 mg at 10/18/241944 Allergies and drug reactions: Patient has no known allergies. HOME MEDICATIONS Medications Prior to Admission Medication Sig Dispense Refill Last Dose ferrous sulfate 325 mg (65 mg iron) tablet Take 1 tablet by mouth in the morning and 1 tablet in the evening. 60 tablet 2 Taking vit no.[id number] ( VITAMIN) Take 1 tablet by mouth in the morning. 30 tablet 4 Taking SOCIAL HISTORY Tobacco History: Social History Tobacco Use Smoking Status Never Passive exposure: Never Smokeless Tobacco Never Drug History: Social History Substance and Sexual Activity Drug Use Never Alcohol History: Social History Substance and Sexual Activity Alcohol Use Never FAMILY HISTORY No family history on file. REVIEW OF SYSTEMS General: negative Constitutional: negative Eyes: negative ENT/Mouth: negative Cardiovascular: negative Respiratory: negative Gastrointestinal: see HPI Genitourinary: negative Musculoskeletal: negative Skin/breast: negative Neurological: negative Psychiatric: negative Endocrine: negative Hemat/Lymph: negative Allergic/Immuno:none VITAL SIGNS BP: (140-144)/(89-111) Temp: [36.5 ?C (97.7 ?F)-37 ?C (98.6 ?F)] Temp source: Oral (10/19 0420) Pulse: [86-108] Resp: [17-20] SpO2: [99 %] Height: [162.6 cm (5' 4")] Weight: [80.3 kg (177 lb)] BMI (calculated): [30.38] PHYSICAL EXAMINATIONS Gen: alert and oriented, well appearing, no distress CV: RRR, normal S1/S2, no m/r/g Resp: normal work of breathing, lungs CTAB Abd: gravid, soft, NTTP Ext: no calf tenderness or edema : SVE ft/25/high REVIEW OF LABORATORY, PATHOLOGY, AND RADIOLOGY DATA Lab results: Type & Screen HIV Hep B Syphilis Chlamydia ABO & RH Date Value Ref Range Status 09/07/2024 O POSITIVE Final No results found for: "HIVMULTIPLEX" No components found for: "HBSHBSAG" No results found for: "SYPIGG" C. trachomatis Nucleic Acid Date Value Ref Range Status 07/20/2024 Negative Negative Final IAT Date Value Ref Range Status 09/07/2024 Negative Final Varicella Rubella Glucose Group B Strep CBC VZV IgG antibody Date Value Ref Range Status 05/27/2024 Negative Negative Final Rubella screen IgG Date Value Ref Range Status 05/27/2024 Positive Negative Final GLUC 1 HR Date Value Ref Range Status 09/07/2024 135 120 - 170 mg/dL Final No results found for: "CGBS" HGB Date Value Ref Range Status 10/18/2024 10.8 (L) 11.6 - 15.0 g/dL Final HCT Date Value Ref Range Status 10/18/2024 33.6 (L) 35.7 - 45.2 % Final PLT Date Value Ref Range Status 10/18/2024 289 166 - 358 10*3/?L Final Active Hospital Problems Diagnosis Date Noted 33 weeks gestation of 10/19/2024 Obesity (BMI 30-39.9) 10/19/2024 uterine contractions in third trimester, antepartum 10/19/2024 Nausea and vomiting during 10/19/2024 Elevated BP without diagnosis of hypertension 10/19/2024 Personal history of gallstones 07/20/2024 Resolved Hospital Problems No resolved problems to display. Present on Admission: Personal history of gallstones Placenta Accreta Screening Prior ? : No Prior Uterine Surgery?: No Placenta low lying/previa in current ? : No Screening outcome: A positive screening outcome indicates a history of prior delivery or prior uterine surgery, AND the presence of either a placenta low lying/previa or ultrasound suspicion of PASD in the current . Negative screening. ASSESSMENT AND PLAN Stalin Obregon is a 19 year old at 33w3d by who presents with N/V/abdominal pain. N/V/abdominal pain with known hx of gallstones - appeared to be gallstones attack - Belly labs with slightly elevated lipase - currently resolved - discussed importance of low fat diet - will transition to regular diet this morning and will re-evaluate - CMP reordered this morning contractions - s/p IV sedation and hydration and s/p terb x 1 - SVE ft/25/high - will continue to monitor - GBS and wet prep ordered Elevated BP without dx of HTN - patient had severe range BP but not accurate as she was vomiting during BP measurements. Since her N/V resolved, BP mild ranging. - tox labs ordered Dispo: Anticipate discharge home later today if continues to remain stable Natalee Amezquita MD [facility] Procedure Notes Date/Time Note Provider Source 2024-10-24 05:23:46 Associated Order(s): Central Neuraxial Block Central Neuraxial Block Date/Time: 10/24/2024 5:23 AM Performed by: Kalani Parker MD Authorized by: Caden Cervantes MD Patient Location: OB End Time: 10/24/2024 5:23 AM Reason for Block: OB request, Patient request, Labor analgesia, Surgical anesthesia and Post-op pain management Staff: Anesthesiologist: Caden Cervantes MD Resident/BAND LOG MILL AND CARRIAGE OPERATOR: Kalani Parker MD Performed by: resident/BAND LOG MILL AND CARRIAGE OPERATOR Preanesthetic Checklist: patient identified, IV checked, risks and benefits explained, monitors and equipment checked, timeout performed, pre-op evaluation, site marked and anesthesia consent Procedure: Type of Neuraxial: Epidural Epidural Description: 1st attempt Sterility Prep cap, drape, gloves, hand hygiene and mask Patient Position: sitting Prep: Betadine and patient draped Monitoring: heart rate, continuous pulse ox, heart rate / toco and NIBP Location: lumbar (1-5) Lumbar: L3-L4 Approach: midline Technique: catheter and CARLOS saline Guidance with: landmark technique} Epidural/Spinal [place] and/or Catheter: Epidural/Spinal Kit: Caitlin Needle Type: Tuohy Needle Gauge: 17 G Needle Length: 3.5 in (8.89 cm) Needle Insertion Depth: 6 Catheter Type: multiport Catheter Size: 19 G Catheter at Skin Depth: 11 Number of Attempts: 1 Test Dose: negative and lidocaine 1.5% with epinephrine 1-to-200,000 Dose: 3 cc Catheter Securement Method: surgical tape and Tegaderm Assessment: Block Outcome: a full evaluation is pending, patient comfortable and patient tolerated procedure well Procedure Assessment: patient tolerated procedure well with no complications Notes: Patient identified; pre-procedure verification. Patient prepped and draped in standard sterile fashion using betadine x 3 Subcutaneous infiltration with 1% Lidocaine CARLOS at 6 cm; catheter secured at 11 cm with mastisol, tegaderm x2 and 3-inch clear tape. Aspiration test negative x 3 Test dose negative Patient tolerated procedure well with no immediate complications Epidural expectations; PCEA explained and fall precautions given. Replaced epidural d/t one side with no level [facility] 2024-10-23 19:03:56 Associated Order(s): Central Neuraxial Block Central Neuraxial Block Date/Time: 10/23/2024 7:03 PM Performed by: Kalani Parker MD Authorized by: Caden Cervantes MD Patient Location: OB End Time: 10/23/2024 7:03 PM Reason for Block: OB request, Patient request, Labor analgesia, Surgical anesthesia and Post-op pain management Staff: Anesthesiologist: Caden Cervantes MD Resident/BAND LOG MILL AND CARRIAGE OPERATOR: Kalani Parker MD Performed by: resident/BAND LOG MILL AND CARRIAGE OPERATOR Preanesthetic Checklist: patient identified, IV checked, risks and benefits explained, monitors and equipment checked, timeout performed, pre-op evaluation, site marked and anesthesia consent Procedure: Type of Neuraxial: Epidural Epidural Description: 1st attempt Sterility Prep cap, drape, gloves, hand hygiene and mask Patient Position: sitting Prep: Betadine and patient draped Monitoring: heart rate, continuous pulse ox, heart rate / toco and NIBP Location: lumbar (1-5) Lumbar: L3-L4 Approach: midline Technique: catheter and CARLOS saline Guidance with: landmark technique} Epidural/Spinal [place] and/or Catheter: Epidural/Spinal Kit: BBun Needle Type: Tuohy Needle Gauge: 17 G Needle Length: 3.5 in (8.89 cm) Needle Insertion Depth: 6 Catheter Type: multiport Catheter Size: 19 G Catheter at Skin Depth: 11 Number of Attempts: 1 Test Dose: negative and lidocaine 1.5% with epinephrine 1-to-200,000 Dose: 3 cc Catheter Securement Method: surgical tape and Tegaderm Assessment: Block Outcome: a full evaluation is pending, patient comfortable and patient tolerated procedure well Procedure Assessment: patient tolerated procedure well with no complications Notes: Patient identified; pre-procedure verification. Patient prepped and draped in standard sterile fashion using betadine x 3 Subcutaneous infiltration with 1% Lidocaine CARLOS at 6 cm; catheter secured at 11 cm with mastisol, tegaderm x2 and 3-inch clear tape. Aspiration test negative x 3 Test dose negative Patient tolerated procedure well with no immediate complications Epidural expectations; PCEA explained and fall precautions given. [facility] 2024-10-23 02:49:41 Stalin Obregon is a 19 year old female 34w0d Nuñez Insertion: Insertion date and time: 10/23/24 2:45 AM Nuñez catheter inserted through cervix in sterile fashion using sterile technique and inflated with 60 cc sterile saline. Nuñez bulb firmly in place inside internal os. Catheter taped to patient leg under traction. Patient tolerated procedure well. Please use the table below for: SVE /50/-3 CERVIX: Consistency : firm; Position: post, Station: -3 Score 0 1 2 3 Dilation (cm) 0 cm 1-2 cm 3-4 cm >5 cm Effacement 0 - 30 % 40 - 50 % 60 - 70 % > 80 % Consistency of the cervix Stiff Moderately soft Very soft Position of the cervix Posterior Median Anterior Station -3 -2 -1 to 0 +1, +2 Demetrio Abad MD DIRECTOR CONSUMER Resident Physician 10/23/24 2:49 AM [facility] Notes Date/Time Note Provider Source 2025-07-28 13:37:55 Please see Fondeadora message. PAM OLIVAREZ RN 07/28/2025 1:38 PM Pam Olivarez RN [facility] 2025-07-28 13:18:58 Copied from [facility] #[id number]. Topic: Clinical - Medical Advice >> Jul 28, 2025 1:16 PM Patient Controls Operator Molded Goods wrote: Stalin Obregon is a 20 year old female Patient is calling to discuss test result and possible medication. Ana M Lawson [facility] 2025-07-22 14:02:19 Suze Thompson RN 07/22/2025 2:02 PM Pj Thompson RN [facility] 2025-07-22 13:14:44 Copied from [facility] #[id number]. Topic: Clinical - Medical Advice >> Jul 22, 2025 1:13 PM Patient Controls Operator Molded Goods wrote: Stalin Obregon 20 year old female Patient stated that she odor with discharge and vaginal irritation in one area. Patient stated that she feels like she has been exposed to an std. Please assist and thank you Rory Ballard [facility] 2025-01-25 09:44:11 Received refill request for Labetalol 300mg. Per last OV 01/20/25- Dr. Bia cruz Labetalol. Refill was denied. PAM OLIVAREZ RN 01/25/2025 9:44 AM Pam Olivarez RN [facility] 2024-11-24 19:36:10 Pt given printed and verbal discharge instructions regarding abdominal pain, encouraged hydration. Prescriptions provided. Pt verbalized understanding of instructions, pt awake alert oriented, resp reg unlabored, skin w/d, color appropriate for race, moves all ext well,pt encouraged to follow up with pcp. Advised to seek medical attention for new/prolonged/worsening of symptoms. No adverse reaction to meds given in ER noted upon discharge. PIV d'cd, dressing to site, catheter in tact. Awake, alert oriented, resp reg unlabored, skin w/d, pt leaving amb with steady gait, in no apparent distress. RCYCLE BUILDER Deysi Tripp RN [facility] 2024-11-24 17:07:15 Stalin Obregon is a 19 year old female c/o " I have gallstones and I think it's flaring up x 1-2 hours" states took a tylenol and it went away and now came back , no emesis, no fever, ate motta this morning and ate [employer] for lunch with coffee Delivered baby 10/24/24 vaginal , states had Pres syndrome RCYCLE BUILDER Sofia Young RN [facility] 2024-11-18 16:15:41 Returned patients call. Patient advised of Dr Amezquita's recommendation: patient to continue labetalol 300 mg 3 times daily and discontinue hydrochlorothiazide Patient verbalized understanding. Pj Thompson RN 11/18/2024 4:16 PM RCYCLE BUILDER Pj Thompson RN [facility] 2024-11-18 15:19:32 Stalin Obregon is a 19 year old female pt called asking what HBP medication she was suppose to stop taking. Would like a call back today please. RX listed below Labetalol Hydrochlorothiazide RICK Jasso [facility] 2024-11-02 11:10:16 Images from the original note were not included. Per Staff Message : Tucker Delcid MD [facility] Pss Please schedule for 1 week retina follow up at the patient's preferred location. Thank you. Tucker Delcid MD I called patient, I left a voicemail message asking patient to call us back to schedule as requested above. RICK Duorn [facility] 2024-11-01 14:22:13 Problem: Falls, Risk of Goal: Absence of falls 11/01/20241421 by Lynnette Hinds, RN Outcome: Resolved 11/01/2024 0839 by Lynnette Hinds, RN Outcome: Progressing as expected Problem: Seizures, Risk of / or Actual Goal: Absence of injury related to seizure activity 11/01/20241421 by Lynnette Hinds RN Outcome: Resolved 11/01/2024 0839 by Lynnette Hinds RN Outcome: Progressing as expected Goal: Absence of seizure activity 11/01/20241421 by Lynnette Hinds RN Outcome: Resolved 11/01/2024 08 by Lynnette Hinds RN Outcome: Progressing as expected Goal: Successful induction of monitored seizure activity (Epilepsy Monitoring Unit - EMU) 11/01/20241421 by Lynnette Hinds RN Outcome: Resolved 11/01/2024 08 by Lynnette Hinds RN Outcome: Progressing as expected Problem: Discharge Planning - Goal: Adequate for discharge 11/01/20241421 by Lynnette Hinds RN Outcome: Resolved 11/01/2024838 by Lynnette Hinds RN Outcome: Progressing as expected Goal: Mood stable 11/01/20241421 by Lynnette Hinds RN Outcome: Resolved 11/01/2024 08 by Lynnette Hinds RN Outcome: Progressing as expected Problem: Breast-feeding - Ineffective Goal: Effective breast-feeding 11/01/20241421 by Lynnette Hinds RN Outcome: Resolved 11/01/2024 08 by Lynnette Hinds RN Outcome: Progressing as expected Problem: Complications of preeclampsia/eclampsia (risk or actual) Goal: Absence of seizure activity 11/01/20241421 by Lynnette Hinds RN Outcome: Resolved 11/01/2024 08 by Lynnette Hinds RN Outcome: Progressing as expected Goal: Absence of signs and symptoms of preeclampsia 11/01/20241421 by Lynnette Hinds RN Outcome: Resolved 11/01/2024 08 by Lynnette Hinds RN Outcome: Progressing as expected RICK Hinds RN [facility] 2024-11-01 08:40:28 Problem: Falls, Risk of Goal: Absence of falls Outcome: Progressing as expected Problem: Seizures, Risk of / or Actual Goal: Absence of injury related to seizure activity Outcome: Progressing as expected Goal: Absence of seizure activity Outcome: Progressing as expected Goal: Successful induction of monitored seizure activity (Epilepsy Monitoring Unit - EMU) Outcome: Progressing as expected Problem: Discharge Planning - Goal: Adequate for discharge Outcome: Progressing as expected Goal: Mood stable Outcome: Progressing as expected Problem: Breast-feeding - Ineffective Goal: Effective breast-feeding Outcome: Progressing as expected Problem: Complications of preeclampsia/eclampsia (risk or actual) Goal: Absence of seizure activity Outcome: Progressing as expected Goal: Absence of signs and symptoms of preeclampsia Outcome: Progressing as expected [facility] 2024-10-31 20:19:24 Problem: Complications of preeclampsia/eclampsia (risk or actual) Goal: Absence of seizure activity Reactivated Goal: Absence of signs and symptoms of preeclampsia Reactivated [facility] Susi Dela Cruz RN [facility] 2024-10-31 20:18:35 Problem: Falls, Risk of Goal: Absence of falls Outcome: Progressing as expected Problem: Seizures, Risk of / or Actual Goal: Absence of injury related to seizure activity Outcome: Progressing as expected Goal: Absence of seizure activity Outcome: Progressing as expected Goal: Successful induction of monitored seizure activity (Epilepsy Monitoring Unit - EMU) Outcome: Progressing as expected Problem: Discharge Planning - Goal: Adequate for discharge Outcome: Progressing as expected Goal: Mood stable Outcome: Progressing as expected Problem: Breast-feeding - Ineffective Goal: Effective breast-feeding Outcome: Progressing as expected [facility] 2024-10-31 18:55:46 Problem: Falls, Risk of Goal: Absence of falls 10/31/20241854 by Dinah Marquez RN Outcome: Progressing as expected 10/31/2024 120 by Dinah Marquez RN Outcome: Progressing as expected Problem: Seizures, Risk of / or Actual Goal: Absence of injury related to seizure activity 10/31/20241854 by Dinah Marquez RN Outcome: Progressing as expected 10/31/2024 120 by Dinah Marquez RN Outcome: Progressing as expected Goal: Absence of seizure activity 10/31/20241854 by Dinah Marquez RN Outcome: Progressing as expected 10/31/2024 120 by Dinah Marquez RN Outcome: Progressing as expected Goal: Successful induction of monitored seizure activity (Epilepsy Monitoring Unit - EMU) 10/31/20241854 by Dinah Marquez RN Outcome: Progressing as expected 10/31/2024 1201 by Dinah Marquez RN Outcome: Progressing as expected Problem: Discharge Planning - Goal: Adequate for discharge 10/31/20241854 by Dinah Marquez RN Outcome: Progressing as expected 10/31/2024 120 by Dinah Marquez RN Outcome: Progressing as expected Goal: Mood stable 10/31/20241854 by Dinah Marquez RN Outcome: Progressing as expected 10/31/2024 1201 by Dinah Marquez RN Outcome: Progressing as expected Problem: Breast-feeding - Ineffective Goal: Effective breast-feeding 10/31/20241854 by Dinah Marquez RN Outcome: Progressing as expected 10/31/2024 120 by Dinah Marquez RN Outcome: Progressing as expected RICK Marquez RN [facility] 2024-10-31 12:02:02 Problem: Falls, Risk of Goal: Absence of falls Outcome: Progressing as expected Problem: Seizures, Risk of / or Actual Goal: Absence of injury related to seizure activity Outcome: Progressing as expected Goal: Absence of seizure activity Outcome: Progressing as expected Goal: Successful induction of monitored seizure activity (Epilepsy Monitoring Unit - EMU) Outcome: Progressing as expected Problem: Discharge Planning - Goal: Adequate for discharge Outcome: Progressing as expected Goal: Mood stable Outcome: Progressing as expected Problem: Breast-feeding - Ineffective Goal: Effective breast-feeding Outcome: Progressing as expected RCYCLE BUILDER [facility] 2024-10-31 00:53:54 Problem: Falls, Risk of Goal: Absence of falls 10/31/202452 by Magali Win RN Outcome: Progressing as expected 10/31/202450 by Magali Win RN Outcome: Progressing as expected Problem: Seizures, Risk of / or Actual Goal: Absence of injury related to seizure activity 10/31/202452 by Magali Win RN Outcome: Progressing as expected 10/31/202450 by Magali Win RN Outcome: Progressing as expected Goal: Absence of seizure activity 10/31/202452 by Magali Win RN Outcome: Progressing as expected 10/31/202450 by Magali Win RN Outcome: Progressing as expected Goal: Successful induction of monitored seizure activity (Epilepsy Monitoring Unit - EMU) 10/31/202452 by Magali Win RN Outcome: Progressing as expected 10/31/202450 by Magali Win RN Outcome: Progressing as expected Problem: Discharge Planning - Goal: Adequate for discharge 10/31/202452 by Magali Win RN Outcome: Progressing as expected 10/31/202450 by Magali Win RN Outcome: Progressing as expected Goal: Mood stable 10/31/202452 by Magali Win RN Outcome: Progressing as expected 10/31/202450 by Magali Win RN Outcome: Progressing as expected Problem: Breast-feeding - Ineffective Goal: Effective breast-feeding Outcome: Progressing as expected RCYCLE BUILDER Magali Win RN [facility] 2024-10-30 00:02:02 Problem: Falls, Risk of Goal: Absence of falls Outcome: Progressing as expected Problem: Seizures, Risk of / or Actual Goal: Absence of injury related to seizure activity Outcome: Progressing as expected Goal: Absence of seizure activity Outcome: Progressing as expected Goal: Successful induction of monitored seizure activity (Epilepsy Monitoring Unit - EMU) Outcome: Progressing as expected Problem: Discharge Planning - Goal: Adequate for discharge Outcome: Progressing as expected Goal: Mood stable Outcome: Progressing as expected [facility] 2024-10-29 11:05:35 Problem: Falls, Risk of Goal: Absence of falls Outcome: Progressing as expected Problem: Seizures, Risk of / or Actual Goal: Absence of injury related to seizure activity Outcome: Progressing as expected Goal: Absence of seizure activity Outcome: Progressing as expected [facility] 2024-10-28 21:25:05 Problem: Falls, Risk of Goal: Absence of falls Outcome: Progressing as expected Problem: Seizures, Risk of / or Actual Goal: Absence of injury related to seizure activity Outcome: Progressing as expected Goal: Absence of seizure activity Outcome: Progressing as expected Goal: Successful induction of monitored seizure activity (Epilepsy Monitoring Unit - EMU) Outcome: Progressing as expected Problem: Discharge Planning - Goal: Adequate for discharge Outcome: Progressing as expected Goal: Mood stable Outcome: Progressing as expected [facility] Jena Stafford RN [facility] 2024-10-28 12:30:00 Images from the original note were not included. This note was copied from a baby's chart. Assessment (most recent) Assessment - 10/28/24 1230 General Information Visit Follow-up mother with PRES- states she can't really see, very anxious about her health, RN states she is very disoriented at times and has a hard time focusing Breast Assessment Other Engorged Literature Resources Education Pump frequency;Lactogenesis Jr. Systems Administrator Observation Pumping No mother states she wanted to pump but with her not doing well she is not sure how to go about it. grandmother states baby is doing well on formula and her kids were formula fed and mom needs to focus on herself and not pumping. mom still deciding Interventions -- supplies are still bedside and mom will use with assistance from family if she is able and chooses to Follow up -- page LC if mom needs further assistance OTHER $ SERVICES Follow-up Liu Gutierrez RNC-[place], IBCLC Pager - [phone] RICK Gutierrez RN [facility] 2024-10-28 03:29:16 Problem: Falls, Risk of Goal: Absence of falls 10/28/2024328 by Iman Zaragoza RN Outcome: Progressing as expected 10/28/2024328 by Iman Zaragoza RN Outcome: Progressing as expected Problem: Seizures, Risk of / or Actual Goal: Absence of injury related to seizure activity 10/28/2024328 by Iman Zaragoza RN Outcome: Progressing as expected 10/28/2024328 by Iman Zaragoza RN Outcome: Progressing as expected Goal: Absence of seizure activity 10/28/2024328 by Iman Zaragoza RN Outcome: Progressing as expected 10/28/2024328 by Iman Zaragoza RN Outcome: Progressing as expected Goal: Successful induction of monitored seizure activity (Epilepsy Monitoring Unit - EMU) 10/28/2024328 by Iman Zaragoza RN Outcome: Progressing as expected 10/28/2024328 by Iman Zaragoza RN Outcome: Progressing as expected Problem: Discharge Planning - Goal: Adequate for discharge 10/28/2024328 by Iman Zaragoza RN Outcome: Progressing as expected 10/28/2024328 by Iman Zaragoza RN Outcome: Progressing as expected Goal: Mood stable 10/28/2024328 by Iman Zaragoza RN Outcome: Progressing as expected 10/28/2024328 by Iman Zaragoza RN Outcome: Progressing as expected RICK Zaragoza RN [facility] 2024-10-27 18:26:38 Problem: Falls, Risk of Goal: Absence of falls Outcome: Progressing as expected Problem: Seizures, Risk of / or Actual Goal: Absence of injury related to seizure activity Outcome: Progressing as expected Goal: Absence of seizure activity Outcome: Progressing as expected RCYCLE BUILDER Ned Atkins RN [facility] 2024-10-26 23:31:51 Problem: Falls, Risk of Goal: Absence of falls Outcome: Progressing as expected Problem: Seizures, Risk of / or Actual Goal: Absence of injury related to seizure activity Outcome: Progressing as expected Goal: Absence of seizure activity Outcome: Progressing as expected Goal: Successful induction of monitored seizure activity (Epilepsy Monitoring Unit - EMU) Outcome: Progressing as expected Problem: Discharge Planning - Goal: Adequate for discharge Outcome: Progressing as expected Goal: Mood stable Outcome: Progressing as expected RCYCLE BUILDER Amna Azevedo RN [facility] 2024-10-26 18:35:34 Problem: Falls, Risk of Goal: Absence of falls 10/26/20241834 by Ned Atkins RN Outcome: Progressing as expected 10/26/20241831 by Ned Atkins RN Outcome: Progressing as expected Problem: Seizures, Risk of / or Actual Goal: Absence of injury related to seizure activity 10/26/20241834 by Ned Atkins RN Outcome: Progressing as expected 10/26/20241831 by Ned Atkins RN Outcome: Progressing as expected Goal: Absence of seizure activity 10/26/20241834 by Ned Atkins RN Outcome: Progressing as expected 10/26/20241831 by Ned Atkins RN Outcome: Progressing as expected Goal: Successful induction of monitored seizure activity (Epilepsy Monitoring Unit - EMU) 10/26/20241834 by Ned Atkins RN Outcome: Progressing as expected 10/26/20241831 by Ned Atkins RN Outcome: Progressing as expected Problem: Discharge Planning - Goal: Adequate for discharge 10/26/2024 183 by Ned Atkins RN Outcome: Progressing as expected 10/26/2024 183 by Ned Atkins RN Outcome: Progressing as expected Goal: Mood stable 10/26/2024 183 by Ned Atkins RN Outcome: Progressing as expected 10/26/2024 183 by Ned Atkins RN Outcome: Progressing as expected [facility] 2024-10-26 18:32:34 Problem: Falls, Risk of Goal: Absence of falls Outcome: Progressing as expected Problem: Seizures, Risk of / or Actual Goal: Absence of injury related to seizure activity Outcome: Progressing as expected Goal: Absence of seizure activity Outcome: Progressing as expected Goal: Successful induction of monitored seizure activity (Epilepsy Monitoring Unit - EMU) Outcome: Progressing as expected Problem: Discharge Planning - Goal: Adequate for discharge Outcome: Progressing as expected Goal: Mood stable Outcome: Progressing as expected [facility] 2024-10-25 19:41:47 Problem: Falls, Risk of Goal: Absence of falls Outcome: Progressing as expected Problem: Seizures, Risk of / or Actual Goal: Absence of injury related to seizure activity Outcome: Progressing as expected Goal: Absence of seizure activity Outcome: Progressing as expected Goal: Successful induction of monitored seizure activity (Epilepsy Monitoring Unit - EMU) Outcome: Progressing as expected Problem: Discharge Planning - Goal: Adequate for discharge Outcome: Progressing as expected Goal: Mood stable Outcome: Progressing as expected [facility] Cameron Brasher RN [facility] 2024-10-25 10:45:00 Images from the original note were not included. This note was copied from a baby's chart. Assessment (most recent) Assessment - 10/25/24 1045 General Information Visit Consult Mom's age (years) 19 years Gestational age 34.1 weeks 1 Parity 1 Living Children 1 Feeding plan Breast Planned maternity leave Stay at home mom Breast Pump Needs assisted mom in applying for the med[employer] pump [place] [employer] Delivery method Breast changes during Enlarged;Darkening of areola leaked Periods Regular Risk factors PIH Oral Assessment Oral assessment Deferred cpap Date of 10/24/24 Time of 0533 location NICU Breast Assessment Breast Assessment Initial Symmetry Symmetrical Size XL (F+) Shape Rounded Other Soft Nipple & Areola Assessment Left Areola Pliable Right Areola Pliable Left Nipple Colostrum visible;Everted;Small Right Nipple Colostrum visible;Everted;Small Literature Resources Resources -- expressing milk for your NICU baby Education Benefits of breastmilk;Hand expression;Maternal nutrition/hydration;Use/se ttings of pump;Pump frequency;Storage of expressed breastmilk;Labeling of expressed breastmilk;Cleaning of pump parts;Lactogenesis;How to obtain pump for after discharge Jr. Systems Administrator Observation Pumping Yes set mom up to pump now Interventions Pump start (massage, compression, expression);Taught hand expression Mother demonstrated teach back of Proper use of breast pump equipment set up in single setting, mother's blood pressure still high and she has blurry vision, grandmother at bedside to assist and listen to consult Recommended Feeding Plan Recommended feeding plan Pump/hand express minimum 8 times in 24 hours including nights. Pump for 15-25 min. OTHER $ SERVICES Consult Liu ORTIZ-[place], IBCLC Pager - [phone] [facility] 2024-10-25 10:25:12 Problem: Falls, Risk of Goal: Absence of falls Outcome: Progressing as expected Problem: Seizures, Risk of / or Actual Goal: Absence of injury related to seizure activity Outcome: Progressing as expected Goal: Absence of seizure activity Outcome: Progressing as expected [facility] 2024-10-25 05:34:59 Problem: Falls, Risk of Goal: Absence of falls Outcome: Progressing as expected Problem: Seizures, Risk of / or Actual Goal: Absence of injury related to seizure activity Outcome: Progressing as expected Goal: Absence of seizure activity Outcome: Progressing as expected Goal: Successful induction of monitored seizure activity (Epilepsy Monitoring Unit - EMU) Outcome: Progressing as expected Problem: Discharge Planning - Goal: Adequate for discharge Outcome: Progressing as expected Goal: Mood stable Outcome: Progressing as expected [facility] 2024-10-24 20:54:46 Problem: Discharge Planning - Antepartum Goal: Absence of seizure activity Outcome: Resolved Goal: Adequate for discharge Outcome: Resolved Goal: Blood pressure within specified parameters Outcome: Resolved [facility] 2024-10-24 16:45:00 Images from the original note were not included. This note was copied from a baby's chart. Assessment (most recent) Assessment - 10/24/24 1645 General Information Visit -- initial attempt Mom's age (years) 19 years Gestational age 34.1 weeks 1 Parity 1 Living Children 1 Feeding plan -- undecided Delivery method Attempted this initial Visit. Briefly spoke with Mom about feeding plan for Infant; Mom states unsure of feeding plan and is not feeling well (on Magnesium Sulfate IV). Mom was given heart to heart cloths; explained Services would follow up later when feeling better. Nayeli Fernandez RN, BSN, IBCLC [facility] Nayeli Fernandez RN [facility] 2024-10-24 15:30:11 Patient: Stalin Obregon Procedure Summary Date: 10/23/24 Room / Location: Anesthesia Start: 1817 Anesthesia Stop: 10/24/24644 Procedure: CENTRAL NEURAXIAL BLOCK Diagnosis: Scheduled Providers: Responsible Provider: Caden Cervantes MD Anesthesia Type: Epidural ASA Status: 2 Anesthesia Type: Epidural Last vitals BP 135/82 (10/24/24 1500) Temp Pulse 75 (10/24/24 1500) Resp 18 (10/24/24 1500) SpO2 97 % (10/24/24 1500) There were no known notable events for this encounter. Anesthesia Post Evaluation Patient location during evaluation: floor Patient participation: complete - patient participated Level of consciousness: awake and alert Pain management: satisfactory to patient Airway patency: patent Cardiovascular status: acceptable Respiratory status: acceptable Hydration status: acceptable [facility] AN-ANESTHESIOLOGY ANESTHESIOLOGIST [facility] 2024-10-24 08:23:16 DELIVERY BY SPONTANEOUS VAGINAL DELIVERY Delivery Date: 10/24/2024 Delivery Time: 5:33 AM Delivery Summary The patient was admitted to the Labor & Delivery unit for IOL at 34 weeks due to Pre-eclampsia with severe features. Delivery Physician: Dayana Beckham MD Teaching Physician: Iris Tejada OB Faculty: Annabelle Loja Intrapartum Anesthesia/Analgesia: Epidural Mode of Delivery: Delivery of milton fetus with cephalic presentation Fetus Spontaneous vaginal delivery of head with cephalic position, occipital anterior. A blue towel was used to protect the perineum as the head crowned and delivered. The other hand was used to exert pressure on the occiput to control the delivery of the head. The perineum was pushed with a towel-draped hand as the head and mouth was delivered over the perineum. he head was allowed to rotate externally to achieve natural body posture. Examination of neck revealed no umbilical cord. The anterior shoulder was delivered. This was followed by delivery of the posterior shoulder and body. After the delivery of infant, bulb suction was performed from ororpharynx and nostril with removal of clear amniotic fluid. A male was delivered. 30 second delay in cord clamping was performed. The umbilical cord was then double clamped, cut and the was handed off the field to the circulating nurse Placenta Placenta was delivered spontaneously while the abdominal hand lifted the uterus cephalad and other hand keeping the umbilical cord slightly taut. Laceration Laceration Repair: No laceration repair needed. Fourth Stage Fourth stage of labor was managed by uterine massage with abdominal hand and infusion 30 units of pitocin mixed with intravenous fluid 300 ml/hr. EBL: 250cc Complications: None Weight: 2550 g 1 Minute 5 Minute 10 Minute Totals: 8 9 Dayana Beckham MD RCYCLE BUILDER Associated attestation - Annabelle Loja MD - 10/24/2024 9:22 AM MOTORCYCLE BUILDER I was present for the delivery on 10/24/2024. Delivery of viable male in the cephalic position with APGARs 8/[address] Beckham's note for additional details. Annabelle Loja MD Anesthesia Critical Care Medicine Fellow (PGY-5) Maternal- Medicine Fellow (PGY-6), OB Faculty OBSTETRICS & GYNECOLOGY [facility] 2024-10-24 07:32:19 Problem: Falls, Risk of Goal: Absence of falls Outcome: Progressing as expected Problem: Discharge Planning - Antepartum Goal: Absence of seizure activity Outcome: Progressing as expected Problem: Intrapartum process (including labor pain) Goal: Absence of or reduction of complications of labor Outcome: Resolved Goal: Able to cope with pain Outcome: Resolved Goal: Adequate to move to next level of care Outcome: Resolved Goal: Reduction in pain sensation Outcome: Resolved Problem: Seizures, Risk of / or Actual Goal: Absence of injury related to seizure activity Outcome: Progressing as expected Goal: Absence of seizure activity Outcome: Progressing as expected Goal: Successful induction of monitored seizure activity (Epilepsy Monitoring Unit - EMU) Outcome: Progressing as expected RCYCLE BUILDER Mariza Olson RN [facility] 2024-10-24 02:52:38 Intrapartum Progress Note 10/24/2024 2:52 AM Subjective: Patient complains of pain and pressure Objective: Vitals last 24 hours: Temp: [36.6 ?C (97.8 ?F)-37.2 ?C (99 ?F)] 37.2 ?C (98.9 ?F) Pulse: [64-125] 97 Resp: [15-20] 20 BP: (127-152)/(76-107) 136/80 Intake/Output : I/O this shift: In: 671.5 [I.V.:343.1] Out: 520 [Urine:520] I/O last 3 completed shifts: In: 4545.5 [I.V.:3126.4] Out: 3210 [Urine:3010; Emesis:200] Assessment Active movement: Yes Mode: FSE Uterine Activity: Mode: IUPC Contractions (number / 10 minute): 5 Contraction duration (seconds): 60-70 Contraction quality: Mild, Palpation Resting tone: Soft, Palpation Membrane Status Membrane status: Artificial Rupture date: 10/23/24 Rupture time: 2218 Amniotic fluid color: Clear Cervical Exam 5 / 75 % / -3 Assessment/Plan: Stalin Obregon is a 19 year old at 34w1d OB Assessment: IOL, PreEwSF OB Plan: s/p FB, Pit@1545, Mag Additional Comments/Detail: Pt c/o of pain and pressure. will page anesthesia Ripening Agent: Oxytocin Iris Tejada MD [facility] 2024-10-24 02:42:09 Problem: Falls, Risk of Goal: Absence of falls Outcome: Progressing as expected Problem: Discharge Planning - Antepartum Goal: Absence of seizure activity Outcome: Progressing as expected Goal: Adequate for discharge Outcome: Progressing as expected Goal: Blood pressure within specified parameters Outcome: Progressing as expected Problem: Intrapartum process (including labor pain) Goal: Absence of or reduction of complications of labor Outcome: Progressing as expected Goal: Able to cope with pain Outcome: Progressing as expected Goal: Adequate to move to next level of care Outcome: Progressing as expected Goal: Reduction in pain sensation Outcome: Progressing as expected RICK Arreola RN [facility] 2024-10-23 22:25:00 Intrapartum Progress Note 10/23/2024 10:25 PM Subjective: Patient has no complaints Objective: Vitals last 24 hours: Temp: [36.6 ?C (97.8 ?F)-37.2 ?C (99 ?F)] 36.7 ?C (98 ?F) Pulse: [64-125] 90 Resp: [15-20] 20 BP: (127-152)/(76-108) 145/100 Intake/Output : I/O this shift: In: 355 [I.V.:150.1] Out: 200 [Urine:200] I/O last 3 completed shifts: In: 4545.5 [I.V.:3126.4] Out: 3210 [Urine:3010; Emesis:200] Assessment Active movement: Yes Mode: EFM Uterine Activity: Mode: Western Contractions (number / 10 minute): 3-4 Contraction duration (seconds): 60-70 Contraction quality: Mild, Palpation Resting tone: Soft, Palpation Membrane Status Membrane status: Artificial Cervical Exam 4 / 50 % / -3 Assessment/Plan: Stalin Obregon is a 19 year old at 34w0d OB Assessment: IOL, PreEwSF OB Plan: s/p FB, Pit@1545, Mag Additional Comments/Detail: AROM moderate clear fluid, internals placed due to 20 of pit, will reassess. Ripening Agent: Oxytocin Iris Tejada MD [facility] 2024-10-23 20:20:34 Intrapartum Progress Note 10/23/2024 8:20 PM Subjective: Patient has no complaints Objective: Vitals last 24 hours: Temp: [36.6 ?C (97.8 ?F)-37.2 ?C (99 ?F)] 36.9 ?C (98.4 ?F) Pulse: [64-125] 87 Resp: [15-20] 16 BP: (127-152)/(76-108) 137/87 Intake/Output : I/O this shift: In: - Out: 70 [Urine:70] I/O last 3 completed shifts: In: 4465.7 [I.V.:3102.9] Out: 3210 [Urine:3010; Emesis:200] Assessment Active movement: Yes Mode: EFM Uterine Activity: Mode: Western Contractions (number / 10 minute): 3 Contraction duration (seconds): 60-70 Contraction quality: Mild, Palpation Resting tone: Soft, Palpation Membrane Status Membrane status: Intact Cervical Exam 4 / 50 % / Ballotable Assessment/Plan: Stalin Obregon is a 19 year old at 34w0d OB Assessment: IOL, PreEwSF OB Plan: s/p FB, Pit@1545, Mag Additional Comments/Detail: Will reassess for AROM, pt not pressuring epidural button, uncomfortable with check. Ripening Agent: Oxytocin Iris Tejada MD [facility] 2024-10-23 18:04:41 Name/ MRN / Age / Gender: Stalin Obregon, [id number] 19 year old female BMI: Estimated body mass index is 31.4 kg/m? as calculated from the following: Height as of this encounter: 1.626 m (5' 4.02"). Weight as of this encounter: 83 kg (183 lb). Allergies: Patient has no known allergies. Last Vitals: BP Readings from Last 1 Encounters: 10/23/24 (!) 139/99 Pulse Readings from Last 1 Encounters: 10/23/24 86 SpO2 Readings from Last 1 Encounters: 10/23/24 95% Date of Surgery: Surgeon: * Surgery not found * Procedure: CENTRAL NEURAXIAL BLOCK OR Location: * No surgery found * Anesthesia Preop Eval (physical exam) Anesthesia Preop: Chart Review and [id number] APA Communication: 19 year old female at 34w0d requesting central neuraxial anesthesia PONV Risk Factors: female Anesthesia History Anesthesia History Negative (-) Hx of anesthetic complications Previous Anesthetics/Airways Cardiovascular Negative Cardiac ROS Comments: BP Readings from Last 3 Encounters: 10/23/24 : (!) 139/99 10/21/24 : 119/78 10/20/24 : (!) 142/85 Pulmonary Negative Pulmonary ROS Neuro/Musculoskeletal Negative Neuro/Musculosketal ROS (-) Spinal Cord injury (-) Positioning limitations GI/Hepatic Negative GI/Hepatic ROS Hematology Negative Hematology ROS Comments: HGB (g/dL) Date Value 10/22/2024 9.0 (L) PLT (10*3/?L) Date Value 10/22/2024 292 Type and Screen Ordered: Yes Patient Accepts Blood Transfusion: Yes Renal Negative Renal ROS Skin Negative Skin ROS Endo/Other Negative Endo/Other ROS Comments: No results found for: "OOFTOHF6E" No results found for: "HGBA1C" Other DIRECTOR CONSUMER Comments: 19 year old female at 34w0d requesting central neuraxial anesthesia ASSESSMENT AND PLAN Stalin Obregon is a 19 year old at 33w6d by d/u(12) who presents as a transfer from [facility] for higher level of care due to PreEwSF. Pre-eclampsia with severe features - Ruled in 10/22 based on BP criteria and Cr 1.11 - Transferred from [place] for higher level of care due to prematurity - s/p steroid benefit 10/21/2024 - On Mag gtt - BP in 100s-130s/60s-70s - BP in triage 120s-140s/80s-100s - Endorses mild EID, but thinks this is due to ride to this hospital, not eating much, and poor sleep the last few days Recent Labs 10/22/24 1225 HGB 9.0* PLT 292 CREAT 1.11* URICACID 7.2* ALT 30 AST 39 LDH 207 Plan: Admit for IOL with FB at midnight Oligohydramnios - KELLY 4 cm today - ROM neg x4 - Previously noted as of 10/21 Gallstones - Seen by general surgery on 07/22/24. - Denies s/s today. - Will refer to gen surg after delivery HSV 1 IgG positive - Positive on 05/27/24 - Denies s/s - SSE: No lesions Antepartum course reviewed - 1 h 135, sero negative, Rimmune, VZVnot immune, HPV not immune, O positive/IAT negative, GBS negative, Pap underage - H/H, plt: 9.0 / 27.1, 292 on 10/22/24 - PP control plan: Undecided, but declines for now - [facility] Fetus - Presentation on admission: cephalic - anterior placenta - EFW: 2316 g, 50%tile based on radiology US 10/21 - EFW 2349 g, 50%tile on BSUS today. KELLY 4 cm. - FHT reactive and reassuring - Normal anatomy scan Pediatric Pediatric N/A N/A Preoperative Medication Instructions Continue taking all prescribed medications except: ROSSI inhibitors, ARBs, diuretics, all oral diabetes medications Anticoagulant Therapy: Defer to surgeons Insulin: Take 1/2 dose the night prior to surgery. Hold on DOS. Phentermine: Alert [facility] anesthesiologist SGLT2 Inhibitors: "gliflozins" to be held for 3 days prior to elective surgeries GLP1 Agonosit: stop 7 days prior to surgery MAC Cases: Continue taking ROSSI inhibitors and ARBs ASA Classification ASA: 3 Labs: Chemistry 10/19/2024 CBC 10/22/2024 135 113 (H) 12 102 8.98 9.0 (L) 292 4.1 12 (L) 1.11 (H) 27.1 (L) eGFR: 73.6 Date: 10/22/2024 ANC: 6.45 Date: 10/22/2024 LFTs 10/22/2024 Coags AST: 39 AP: 210 (H) Prot: 5.8 (L) Ca: 7.5 (L) PT: - Date: - ALT: 30 T Bharat: 0.3 Alb: 2.7 (L) PTT: - Date: - PO4: - Date: - INR: - Date: - Cardiac Endocrine & other pBNP: - Date: - A1C: - Date: - Trop I: - Date: - POCT A1C: - Date: - CK: - Date: - TSH: - Date: - CKMB: - Date: - FT4: - Date: - LDL: - Date: - Lact: - Date: - Procal: - Date: - Respiratory -|-|-|-|- D-dimer: - ABG Date: - Date: - Miscellaneous Type and Screen: O POSITIVE Antibody: Negative Date: 10/22/2024 POCT : Positive Date: 05/27/2024 Current Medications: No outpatient medications have been marked as taking for the 10/21/24 encounter (Hospital Encounter). Previous Surgeries: No past surgical history on file. Anesthesia Physical Exam General no apparent distress and alert and oriented x 3 Neuro/Psych neurological Nonfocal Dental no notable dental hx Abdominal GI exam normal (+) abdomen soft, benign and gravid Airway Mallampati score:III TM distance:> 5 cm Neck ROM: full Mouth opening:small, normal (+) Normal facies Extremity Normal extremity Pulmonary pulmonary exam normal and bilateral clear to auscultation Other Cardiovascular cardiovascular exam normalRhythm:Regular Rate: Normal Anesthesia Plan ASA Status: 3 Plan discussed during pre-op evaluation: Epidural, Spinal and General Anesthetic plan on DOS: Epidural Anesthesia plan discussed with: patient or c s s representative Post-Operative Analgesia: Recovery Plan: LDR Additional comments: [facility] AN-ANESTHESIOLOGY ANESTHESIOLOGIST [facility] 2024-10-23 16:53:44 Problem: Falls, Risk of Goal: Absence of falls Outcome: Progressing as expected Problem: Discharge Planning - Antepartum Goal: Absence of seizure activity Outcome: Progressing as expected Goal: Adequate for discharge Outcome: Progressing as expected Goal: Blood pressure within specified parameters Outcome: Progressing as expected Problem: Intrapartum process (including labor pain) Goal: Absence of or reduction of complications of labor Outcome: Progressing as expected Goal: Able to cope with pain Outcome: Progressing as expected Goal: Adequate to move to next level of care Outcome: Progressing as expected Goal: Reduction in pain sensation Outcome: Progressing as expected Problem: Seizures, Risk of / or Actual Goal: Absence of injury related to seizure activity Outcome: Progressing as expected Goal: Absence of seizure activity Outcome: Progressing as expected Goal: Successful induction of monitored seizure activity (Epilepsy Monitoring Unit - EMU) Outcome: Progressing as expected [facility] 2024-10-22 22:13:43 Problem: Discharge Planning - Antepartum Goal: Absence of seizure activity Outcome: Progressing as expected Goal: Adequate for discharge Outcome: Progressing as expected Goal: Blood pressure within specified parameters Outcome: Progressing as expected Problem: Falls, Risk of Goal: Absence of falls Outcome: Progressing as expected Problem: Intrapartum process (including labor pain) Goal: Absence of or reduction of complications of labor Outcome: Progressing as expected Goal: Able to cope with pain Outcome: Progressing as expected Goal: Adequate to move to next level of care Outcome: Progressing as expected Goal: Reduction in pain sensation Outcome: Progressing as expected Problem: Seizures, Risk of / or Actual Goal: Absence of injury related to seizure activity Outcome: Progressing as expected Goal: Absence of seizure activity Outcome: Progressing as expected Goal: Successful induction of monitored seizure activity (Epilepsy Monitoring Unit - EMU) Outcome: Progressing as expected RCYCLE BUILDER Mis Ruvalcaba RN [facility] 2024-10-22 07:30:00 Problem: Falls, Risk of Goal: Absence of falls Outcome: Progressing as expected Problem: Discharge Planning - Antepartum Goal: Absence of seizure activity Outcome: Progressing as expected Goal: Adequate for discharge Outcome: Progressing as expected Goal: Blood pressure within specified parameters Outcome: Progressing as expected RICK Carbone RN [facility] 2024-10-21 10:00:00 Age: [age] year old GA: 33w5d Here for NST only Preeclampsia without severe features - NST nonreactive: Baseline 135, minimal variability, positive acceleration, no deceleration -->> to labor and delivery for prolonged monitoring, BPP, and growth scan [facility] 2024-10-21 09:53:47 Patient seen in L&D. Pj Thompson RN 10/21/2024 9:53 AM RICK Thompson RN [facility] 2024-10-18 18:10:22 Patient arrived ambulatory c/o abdominal pain and vomiting that started today. 33 weeks pregannt, G1, obgyn ann. Gave report to CLARENCE Cruz RICK Archuleta RN [facility] 2024-10-13 15:45:00 Age: [age] year old GA: 32w4d Palpitations - not drinking enough water - discussed adequate hydration -if she continues to have palpitations even with adequate hydration, will refer to cardiology for further evaluation. ?? Heartburn -Patient states that certain positions at night when she is laying down makes her cough. No other URI symptoms. -Discussed potential heartburn and to avoid eating 4 to 6 hours before laying down; small frequent meals also discussed. Proteinuria -3+ protein noted on U dip today -BP normal; denies PIH symptoms -Adequate hydration discussed -If continues to have proteinuria, will order 24 hours urine Gallstones - Saw general surgery on 07/22/2024. Continue with lifestyle and diet modifications. Follow-up after delivery unless clinically indicated otherwise. Anemia - On iron HSV 1 IgG positive - Suppression at 36 weeks Patient has been scheduled for elective induction on 11/28/2024 at 39 weeks unless clinically indicated otherwise. Follow-up in 2 weeks for visit with BAKERY TECHNICIAN Follow-up in 4 weeks for visit with Bia RCYCLE BUILDER [facility] 2024-09-28 12:45:00 Age: [age] year old GA: 30w3d ASSESSMENT: Stalin Obregon is a 19 year old at 30w3d who presents for routine visit. 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 Normal in third trimester 2. 30 weeks gestation of - POCT Urinalysis w/o Specific [place]- negative glucose and protein 3. Herpes simplex type 1 antibody positive Plan for suppressive therapy from 35-36 weeks unless clinically indicated 4. Anemia of mother in , antepartum Continue oral iron 5. Obesity in Continue healthy diet and exercises Gallstones: Continue with lifestyle and diet modifications. -Reviewed with patient FKC and labor precautions She verbalized understanding --All questions answered RTC with Dr. Amezquita in 2 weeks or prn Isabella Cole DNP, FIELD MARKETING TEAM LEADER-BC 09/28/2024 at 1:[address] [facility] [employer] 2024-09-14 16:00:00 Age: [age] year old GA: 28w3d Doing well without concerns today Received record from [facility] 07/21/2024: Ultrasound of the abdomen -cholelithiasis with mild gallbladder wall thickening 07/21/2024: Single viable IUP corresponding to 20 weeks and 3 days, anterior placenta, closed cervix - Gallstones: Saw general surgery on 07/22/2024. Continue with lifestyle and diet modifications. Follow-up after delivery unless clinically indicated otherwise. -Anemia: On iron -28 weeks labs within normal limits except for anemia. 1 hour GTT 135. Borderline. Discussed healthy diet and exercise. -HSV 1 IgG positive: Suppression at 36 weeks -Anatomy scan on 08/06/2024: The biometry was consistent with the dates provided. No obvious abnormalities noted - Discussed elective induction at 39 wks versus awaiting spontaneous labor. Discussed the process of induction with includes cervical ripening, AROM, and pitocin with the patient and answered all questions. Discussed about risks of failed induction that can lead to and risks associated with including pain, bleeding, infection, injury to surrounding organs, need for repeat with future pregnancies, risks of abnormal placentation with future pregnancies. Patient understands and desires to proceed with induction. Patient has been scheduled for induction on 11/28/2024 at 39 weeks unless clinically indicated otherwise. -Received Tdap vaccines - 3rd trimester teaching done- reviewed S/S of PTL (contractions, leakage of fluid and Vaginal bleeding) and also Kick Counts. Also dicussed Rg-Herzog, pelvic and lower back pains- expectations and differenced with S/S of PTL She plans to follow fed BC options reviewed- opted for undecided Cell Assembly Pinner: Undecided Encourage patient to bring in wishes if she has any. -Follow-up in 2 weeks for visit with BAKERY TECHNICIAN -Follow-up in 4 weeks for visit with Bia [facility] [employer] 2024-09-07 10:15:00 Loaded pt with 50G Glucola at 1038. Pt finished Glucola at 1041 with no issues. Draw time 1141. RCYCLE BUILDER Sherine Jensen [facility] 2024-09-07 10:15:00 Images from the original note were not included. Venipuncture collection performed by clean technique on the left anticubitus. Total of 1 attempts were made. Slight pressure and a bandage/dressing were applied to the site(s). The patient experienced no complications. The following specimens were processed according to instructions and sent to [facility] laboratories per lab order on 09/07/2024 : LT BLUE SST 2 RED 1 LAV 2 PPT DK GREEN (LiHep) DK GREEN (SodH) HARPER DK BLUE (K2) DK BLUE (S) ACD Blood Culture NIPT/NTD Patient has been identified by and was provided with cup, antiseptic towelette, and clean catch instructions. 1 urine specimen(s) sent. Unpreserved Urine Culture 1 Aptima tube Other urine [facility] 2024-08-17 16:00:00 Age: [age] year old GA: 24w3d ASSESSMENT: Stalin Obregon is a 19 year old at 24w3d who presents for routine visit. Patient Active Problem List Diagnosis Normal in second trimester Chlamydia trachomatis infection of lower genitourinary sites Dizziness and giddiness Leg pain, anterior, right Personal history of gallstones PLAN 1. Normal in second trimester 2. 24 weeks gestation of - Cbc with Diff; Future - ADC or Geena Only - Rpr; Future - Glucose 1 Hour Post Prandial; Future - HIV 1/2 Ag-Ab with Reflex; Future - Workup, Blood Bank; Future - POCT Urinalysis w/o Specific [place]- trace protein and negative glucose 3. Herpes simplex type 1 antibody positive Plan for suppressive therapy from 35-36 weeks unless clinically indicated 4. Susceptible to varicella (non-immune), currently May vaccinate PP + CT on 05/27/24: HEMALATHA ~ 07/20/24- negative -Anatomy US - 08/06/24. The biometry was consistent with the dates provided. No obvious abnormalities noted -Discussed with patient plan for 3rd trimester lab testing - order placed - labor precautions reviewed --All questions answered F/u with Dr. Amezquita in 4 weeks or jackeline Cole DNP, FIELD MARKETING TEAM LEADER-BC 08/17/2024 at 4:38 PM [facility] 2024-08-17 10:34:12 Recieved fax from [employer]. Signed and faxed back. Title 19- BP. PAM OLIVAREZ RN 08/17/2024 10:34 AM Pam Olivarez RN [facility] 2024-08-03 10:12:43 Received record from [facility] 07/21/2024: Ultrasound of the abdomen -cholelithiasis with mild gallbladder wall thickening 07/21/2024: Single viable IUP corresponding to 20 weeks and 3 days, anterior placenta, closed cervix Natalee Amezquita MD 08/03/2024 10:13 AM [facility] 2024-07-29 09:00:40 Medical records from [facility] received via fax, placed on doctors desk. Mar Ayers [facility] 2024-07-20 16:15:00 Age: [age] year old GA: [...] that she was diagnosed with gallstones at [facility] ER on 06/17/2024. Referral to general surgery [...] -Follow-up in 4 weeks for visit with BAKERY TECHNICIAN -Follow-up in 8 weeks for visit with Bia Received [facility] from [facility] -LMP 02/28/2024; [facility] 12/04/2024 -Ultrasound on 04/21/2024: 8 weeks and 0 days, [facility] 12/01/2024. Single viable IUP with heart tone. [facility] 2024-06-30 10:10:35 Attempted to contact patient. No answer, VM left. Pj Thompson RN 06/30/2024 10:11 AM Pj Thompson RN [facility] 2024-06-29 16:59:25 Stalin Obregon is a 19 year old female Pt request a call back regarding today's visit. [phone] (home) Eris Garcia [facility] 2024-06-29 16:00:00 Images from the original note were not included. Venipuncture collection performed by clean technique on the left anticubitus. Total of 1 attempts were made. Slight pressure and a bandage/dressing were applied to the site(s). The patient experienced no complications. The following specimens were processed according to instructions and sent to [facility] laboratories per lab order on 06/29/2024: LT BLUE SST 1 RED LAV PPT DK GREEN (LiHep) DK GREEN (SodH) HARPER DK BLUE (K2) DK BLUE (S) ACD Blood Culture NIPT/NTD [facility] 2024-06-29 15:15:00 Age: 1919 year old GA: 17w3d ASSESSMENT: Stalin Obregon is a 19 year old at 17w3d who presents for routine visit. 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 Normal in second trimester 2. 17 weeks gestation of - Alpha Fetoprotein-Maternal Ser; Future - POCT Urinalysis w/o Specific [place] - CONSULT MATERNAL MEDICINE ULTRASOUND Multiple Gestation: [...] Dr. Amezquita in 4 weeks or prn Isabella Cole DNP, FIELD MARKETING TEAM LEADER-BC 06/29/2024 at 3:35 PM [facility] 2024-06-16 11:40:32 Contacted patient. Patient states she does not need a letter for work at this time. Pj Thompson RN 06/16/2024 11:40 AM Pj Thompson RN [facility] 2024-06-15 15:48:21 LM on for pt to return call. PAM OLIVAREZ RN 06/15/2024 3:48 PM Pam Olivarez RN [facility] 2024-06-15 09:39:33 Called back and stated that she is unsure how to go about getting a doctor excuse because she missed work for headache. Pt stated that the job currently does not know that she is as well. Please assist. Thank you. Rory Ballard [facility] 2024-06-15 06:57:36 Stalin Obregon is a 18 year old female patient calling to speak with nurse regarding headache and needing a work excuse. Please call [phone] Ana M Del Cid [facility] 2024-06-09 10:22:13 Gender results given to Sakshi. Pj Thompson RN 06/09/2024 10:22 AM Pj Thompson RN [facility] 2024-06-09 09:57:46 Contacted patient regarding results. Genetic results given. Patient wants gender results given to sister Sakshi Obregon at [phone]. Will contact patient later. Pj Thompson RN 06/09/2024 9:58 AM [facility] 2024-06-09 09:49:29 [employer] results received via fax. Stamped and will be uploaded to patients chart. T [facility] 2024-06-01 14:17:02 Returned patients call. Patient advised [...] orders. Pj Thompson RN 06/01/2024 2:19 PM Health 2024-06-01 13:04:57 Copied from [facility] #[id number]. Topic: Clinical - Medical Advice >> Jun 01, 2024 12:59 PM Patient Controls Operator [employer]s wrote: Patient had taken azithromycin 500 mg [...] medication prescribed from urgent care. Judah Lopez [facility] 2024-05-31 22:43:42 Pt given printed and verbal [...] in no apparent distress, Jodi Ambrocio RN [facility] 2024-05-31 20:26:55 Pt given urine cup and placed back into lobby with instructions for collecting urine sample. [facility] 2024-05-31 20:17:36 Pt arrived ambulatroy without assist. Pt boyfriend with her, okay to discuss medical care in front of him. Pt c/o headache all day and cramping in abd after taking azithromycin 1000mg written by Dr. Amezquita for treatment of chlamydemia. Pt denies bleeding or changes in vaginal discharge. 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 Single viable IUP with heart tone. Natalee Amezquita MD 05/31/2024 3:17 PM T [facility] 2024-05-31 07:44:03 Medical records received from [facility], placed on provider's desk for review. Radha Cabrera [facility] 2024-05-27 16:00:00 Images from the original note were not included. Venipuncture collection performed by clean technique on the left anticubitus. Total of 1 attempts were made. Slight pressure and a bandage/dressing were applied to the site(s). The patient experienced no complications. 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 Expectations for weight gain this include 15-25 pounds. Encouraged to call if have any additional questions or concerns. Discussed aneuploidy and carrier screening; patient opts for [employer]ama and [employer]. Discussed with patient that she can have HEALTHY support with her during her delivery (which is subject to change depends on the COVID pandemic) Follow-up in 4 weeks for visit with BAKERY TECHNICIAN Follow-up in 8 weeks for visit with Amezquita [facility]
--- NOTE | 2025-08-02 08:07 | ER ---
Nurse's Notes [facility] Name: Stalin Obregon Age: 20 yrs Sex: Female : 2005 Arrival Date: 08/02/2025 Time: 07:46 Bed IW1 Private MD: Diagnosis: Presentation: 08/02 07:53 Chief complaint: Patient states: "I had my gallbladder removed in December and I was fine ss this morning, then all of a sudden I felt like I was having a gallbladder attack again. I threw up one time too." Pt reports her pain has improved since the pain began this morning, but is still, "sore". Coronavirus screen: Client denies travel out of the [place] in the last 14 days. Ebola Screen: Patient denies exposure to infectious person. Patient denies travel to an Ebola-affected area in the 21 days before illness onset. Initial Sepsis Screen: Does the patient meet any 2 criteria? No. Patient's initial sepsis screen is negative. Does the patient have a suspected source of infection? No. Patient's initial sepsis screen is negative. Risk Assessment: Do you want to hurt yourself or someone else? Patient reports no desire to harm self or others. Onset of symptoms was August 02, 2025. 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 - Social history:: Smoking status: Patient denies any tobacco usage or history of. Assessment: 08:00 General: Appears uncomfortable, Behavior is cooperative, anxious, Denies fever. Pain: ss Complains of pain in epigastric area and right upper quadrant Pain currently is 8 out of 10 on a pain scale. Pain began suddenly, 1 hour ago. Is continuous. Neuro: Level of Consciousness is awake, alert, obeys commands, Oriented to person, place, time, situation, Sulfur Burner are equal bilaterally Speech is normal, Pupils are PERRLA. Respiratory: Airway is patent Respiratory effort is even, unlabored. GI: Reports upper abdominal pain, nausea, vomiting, since suddenly, this am. : Denies burning with urination, urinary frequency. Derm: Skin is pink, warm \\T\\ dry. normal. 08:00 Reassessment: Attempted to bring patient back to room from lobby. Pt stated, "I'm kind ss of on a time crunch. Do you know how long this will take? I have my Mom's this morning and 30 this morning will probably be the last time I'll ever be able to see her." Dr. Chanel notified and states that patient will indeed need lab work obtained and possibly imaging. Pt educated on risks of leaving prior to being seen and treated and still insists on leaving and going to and will return if her symptoms persist/ worsen. Vital Signs: 07:53 BP 113 / 70; Pulse 98; Resp 16; Temp 98.6(O); Pulse Ox 100% on R/A; Weight 63.5 kg; ss Height 5 ft. 5 in. ; Pain 8/10; 07:53 Body Mass Index 23.30 (63.50 kg, 165.1 cm) ss 07:53 Pain Scale: Adult ss ED Course: 07:48 Patient arrived in ED. mr 07:49 Msity Chanel MD is Attending Physician. sp3 07:55 Triage completed. ss 07:55 Arm band placed on right wrist. ss Administered Medications: No medications were administered Outcome: 08:06 Eloped from waiting room, before seeing physician ss 08:06 unknown 08:06 Instructed on follow up and referral plans. 08:06 Patient left the ED. Signatures: Rachel Teran, Reg Reg Corina Flores, RN RN ss Misty Chanel MD MD sp3 Corrections: (The following items were deleted from the chart) 07:55 07:55 PMHx: gallstone; [facility]
[2025-08-02 08:19] VITALS: BP 113/70; TEMP 98.6; O2SAT 100
== END 2025-08-02 08:06 | disposition left against medical advice (07) ==
LOC: ER 07:46
DX: Z53.21 Procedure and treatment not carried out due to patient leaving prior to being seen by health care provider (principal)
CPT/HCPCS: 99282

== ENCOUNTER 2025-08-02 18:12 | Emergency (ER) | payer OTHER ==
--- OUTSIDE RECORDS SUMMARY | 2025-08-02 18:18 | XMS REPORT | Continuity of Care Document ---
Author Name Unknown Address [address] 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 Name Role Phone Pcp, Patient Does Not Have A Primary Care Physic naren Unavailable NATALEE AMEZQUITA Attending Clinician Unavailable NATALEE AMEZQUITA Attending Clinician Unavailable Natalee Amezquita MD Attending Clinician [phone] Doctor Unassigned, [place] Attending Clinician U navailable LEATHA HOWARD Attending Clinician Unavailable LEATHA HOWARD Attending Clinician Unavailable Nurse, [facility] Attending Clinician Un available Leslie Solitario MD Attending Clinician [phone] LESLIE SLOITARIO Attending Clinician Unavailable Leatha Howard MD Attending Clinician [phone] DOUG HOLLAND Attending Clinician Unavailab Doug Lewis NP Attending Clinician [phone] ISABELLA COLE Attending Clinician Unavailable MARCELLUS JOE Attending Clinician UnavailMarcellus Singh MD Attending Clinician [phone] Vadim Walker MD Attending Clinician Billy ROWLEY, Caden Flynn Attending Clinician [phone] [facility] Attending Clinician Unavailable Isabella Cole DNP Attending Clinician [phone] , [facility] Attending Clinician Unavailable Ultrasound, [facility] Attending Clinician Unavaila ble OmeMaryan luo MD Attending Clinician + MARYAN TAVARES Attending Clinician Unav ailable MARYAN TAVARES Attending Clinician Unav ailable BRIAN HAYES Attending Clinician Unavailable BRIAN HAYES Attending Clinician Unavailable Brian Hayes MD Attending Clinician 2, [facility] Attending Clinician Unavailable NATALEE AMEZQUITA Admitting Clinician Unavailable LESLIE SOLITARIO Admitting Clinician Unavailable DOUG HOLLAND Admitting Clinician Unavailab MARCELLUS Acosta Admitting Clinician UnavailMarcellus Singh MD Admitting Clinician Natalee Amezquita MD Admitting Clinician Payers Payer Name Policy Type Policy Number Effective Date Expirati on Date Source Info [facility] [id number] 2024 00:00:00 Problems Condition Name Condition Details Condition Category Status Onset Date Resolution Date Last Treatment Date Treating Clinician Comments Source Preeclamps ia, third trimester Preeclamps ia, third trimester Disease Active 2023-10 2-26 00:00: 00 [facility] Palpitatio ns Palpitatio ns Disease Active 2023-10 2-18 00:00: 00 [facility] BCP ( control pills) initiation BCP ( control pills) initiation Disease Resolve d 4-28 00:00: 00 2025-07-27 00:00:00 2025-07-27 18:37:49 [facility] PRES (posterior reversible encephalop athy syndrome) PRES (posterior reversible encephalop athy syndrome) Disease Resolve d 1-06 00:00: 00 2025-07-27 00:00:00 2025-07-27 18:38:02 [facility] 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 Disease Resolve d 1-06 00:00: 00 2025-07-27 00:00:00 2025-07-27 18:37:52 [facility] History of severe pre-eclamp emory History of severe pre-eclamp emory Disease Resolve d 2023-10 2-26 00:00: 00 2025-07-27 00:00:00 2025-07-27 18:38:10 [facility] Biliary colic Biliary colic Disease Resolve d 2-17 00:00: 00 2025-02-16 00:00:00 2025-02-16 15:15:58 [facility] Biliary sludge determined by ultrasound Biliary sludge determined by ultrasound Disease Resolve d 1-29 00:00: 00 2025-02-16 00:00:00 2025-02-16 15:16:01 [facility] RUQ pain RUQ pain Disease Resolve d 1- 00:00: 00 2025-02-16 00:00:00 2025-02-16 15:16:00 [facility] Calculus of gallbladde r without cholecysti tis without obstructio n Calculus of gallbladde r without cholecysti tis without obstructio n Disease Resolve d 1- 00:00: 00 2025-02-16 00:00:00 2025-02-16 15:15:59 [facility] Personal history of gallstones Personal history of gallstones Disease Resolve d 9-24 00:00: 00 2025-02-16 00:00:00 2025-02-16 15:16:06 [facility] Chlamydia trachomati s infection of lower genitourin mika sites Chlamydia trachomati s infection of lower genitourin mika sites Disease Resolve d 8-05 00:00: 00 2025-02-16 00:00:00 2025-02-16 15:16:08 [facility] Non-reacti ve NST (non-stres s test) Non-reacti ve NST (non-stres s test) Disease Resolve d 2023-10 2-26 00:00: 00 2024-11-18 00:00:00 2024-11-18 14:21:54 [facility] Oligohydra mnios in third trimester, single or unspecifie d fetus Oligohydra mnios in third trimester, single or unspecifie d fetus Disease Resolve d 2023-10 2-26 00:00: 00 2024-11-18 00:00:00 2024-11-18 14:21:34 [facility] 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 for herpes simplex virus (HSV) antibody Disease Resolve d 2023-10 2-25 00:00: 00 2024-11-18 00:00:00 2024-11-18 14:21:50 [facility] Anemia in , third trimester Anemia in , third trimester Disease Resolve d 2023-10 2-25 00:00: 00 2024-11-18 00:00:00 2024-11-18 14:21:52 [facility] 33 weeks gestation of 33 weeks gestation of Disease Resolve d 2023-10 2-24 00:00: 00 2024-11-18 00:00:00 2024-11-18 14:21:41 [facility] Obesity (BMI 30-39.9) Obesity (BMI 30-39.9) Disease Resolve d 2023-10 2-24 00:00: 00 2024-11-18 00:00:00 2024-11-18 14:21:48 [facility] Heartburn during in third trimester Heartburn during in third trimester Disease Resolve d 2023-10 2-18 00:00: 00 2024-11-18 00:00:00 2024-11-18 14:21:40 [facility] Dizziness and giddiness Dizziness and giddiness Disease Resolve d 9-24 00:00: 00 2024-11-18 00:00:00 2024-11-18 14:21:37 [facility] Elevated BP without diagnosis of hypertensi on Elevated BP without diagnosis of hypertensi on Disease Resolve d 2023-10 2-24 00:00: 00 2024-10-21 00:00:00 2024-10-21 12:32:28 [facility] Leg pain, anterior, right Leg pain, anterior, right Disease Resolve d 2023-0 9-24 00:00: 00 2024-10-21 00:00:00 2024-10-21 12:32:17 [facility] Normal in third trimester Normal in third trimester Disease Resolve d 2023-0 8- 00:00: 00 2024-10-21 00:00:00 2024-10-21 12:32:12 [facility] uterine contractio ns in third trimester, antepartum uterine contractio ns in third trimester, antepartum Disease Resolve d 2023-10-24 00:00: 00 2024-10-20 00:00:00 2024-10-20 08:56:16 [facility] Nausea and vomiting during Nausea and vomiting during Disease Resolve d 2023-10 00:00: 00 2024-10-20 00:00:00 2024-10-20 08:56:19 [facility] Allergies, Adverse Reactions, Alerts Allergy Name Allergy Type Status Severity Reaction(s) Onset Date Inactive Date Treating Clinician Comments Source NEOMY-BA CIT-POLY MYX-PRAM OXINE DRUG Active Low Rash 2023-10 00:00: 00 [facility] Neomy-Ba cit-Poly myx-Pram oxine Drug Allergy Active Rash 2023-10 00:00: 00 [facility] NO KNOWN ALLERGIE S Drug Class Active [facility] Social History Social Habit Start Date Stop Date Quantity Comments Source ASSERTION 2024-03-13 00:00:[address] [facility] Alcoholic beverage intake 2025-07-27 00:00:00 2025-07-27 00:00:00 Ex-drinker (finding) [facility] History of Social function 2024-12-13 00:00:00 2024-12-13 00:00:00 [facility] Tobacco use and exposure 2024-05-27 00:00:00 2024-05-27 00:00:00 Smokeless tobacco non-user [facility] Sex assigned at 2005 00:00:00 2005 00:00:00 [facility] Smoking Status Start Date Stop Date Source Never smoked tobacco [facility] Medications Ordered Medication Name Filled Medication Name Start Date Stop Date Current Medication? Ordering Clinician Indication Dosage Frequency Signature (SIG) Comments Components Source metroNIDAZO LE 500 mg tablet 2024-10 00:00: 08-05 04:59 :00 Yes [id number] 500mg Take 1 tablet by mouth in the morning and 1 tablet in the evening. Do all this for 7 days. [facility] azithromyci n 500 mg tablet 2024-10 00:00: 00 07-29 04:59 :00 Yes [id number] 1000mg Take 2 tablets by mouth once now for 1 dose. [facility] medroxyPROG ESTERone (PROVERA) 10 mg tablet 2024-10 00:00: 00 Yes [id number] 10mg Take 1 tablet by mouth in the morning. [facility] fluconazole 150 mg tablet 2024-10 00:00: 00 07-28 04:59 :00 Yes [id number] 150mg Take 1 tablet by mouth once now for 1 dose. [facility] drospirenon e, contracepti ve, (SLYND) 4 mg (28) Tab 4-28 00:00: 00 07-27 00:00 :00 No [id number] 1{tbl} Take 1 tablet by mouth in the morning. [facility] labetaloL 300 mg tablet 2-17 00:00: 00 02-16 00:00 :00 No [id number] 300mg Take 1 tablet by mouth in the morning and 1 tablet in the evening. [facility] ondansetron (ZOFRAN (PF)) injection 4 mg 11-24 23:30: 00 11-24 23:24 :00 No 4mg 4 mg, Slow IV Push, ONCE, 1 dose, On Fri11/24/24 at 1730, Administer over 2-5 Minutes, 2 mL [facility] morpHINE (4 mg/mL) injection 4 mg 11-24 23:30: 00 11-24 23:22 :00 No 4mg 4 mg, Slow IV Push, ONCE, 1 dose, On Fri11/24/24 at 1730, STAT [facility] ondansetron 4 mg disintegrat ing tablet 11-24 00:00: 00 02-16 00:00 :00 No [id number] 4mg Take 1 tablet by mouth every 8 (eight) hours as needed for Nausea and Vomiting (N/V). [facility] Blood Pressure Monitor Kit 11-18 00:00: 02-16 00:00 :00 No [id number] Use as directed [facility] hydroCHLORO thiazide 25 mg tablet 11-01 00:00: 00 12-27 00:00 :00 No [id number] 25mg Take 1 tablet by mouth in the morning and 1 tablet in the evening. [facility] labetaloL 300 mg tablet 11-01 00:00: 00 12-13 00:00 :00 No [id number] 300mg Take 1 tablet by mouth in the morning and 1 tablet at noon and 1 tablet in the evening. [facility] hydroCHLORO thiazide (ESIDRIX) tablet 25 mg -05 02:00: 00 11-01 22:07 :02 No 25mg 25 mg, Oral, BID, First dose (after last modificati on) on 10/30/24 at 2000, Until Discontinu ed, Routine [facility] labetaloL (NORMODYNE) tablet 300 mg 10-28 20:00: 00 11-01 22:07 :02 No 300mg 300 mg, Oral, TID, First dose (after last modificati on) on Fri10/28/24 at 1400, Until Discontinu ed, Routine [facility] labetaloL (NORMODYNE) tablet 100 mg 10-28 16:30: 00 10-28 16:43 :00 No 100mg 100 mg, Oral, ONCE, 1 dose, On Fri10/28/24 at 1030, Routine [facility] labetaloL (NORMODYNE) tablet 200 mg 10-27 20:00: 00 10-28 16:19 :24 No 200mg 200 mg, Oral, TID, First dose (after last modificati on) on Fri10/27/24 at 1400, Until Discontinu ed, Routine [facility] D5W-LR IV infusion 1,000 mL 10-27 17:15: 00 11-01 22:07 :02 No 1000mL at 75 mL/hr, IV Infusion, CONTINUOUS , Starting on Fri10/27/24 at 1115, Until Fri11/01/24 at 1607, KRYSTIN [facility] calcium gluconate 100 mg/mL (10%) injection 1,000 mg 10-27 17:00: 43 11-01 22:07 :02 No 1000mg 1,000 mg, Slow IV Push, PRN - SEE INSTRUCTIO NS, Starting on Fri10/27/24 at 1100, Until Fri11/01/24 at 1607, Routine, magnesium toxicity [facility] hydroCHLORO thiazide (ESIDRIX) tablet 25 mg 10-27 14:30: 00 10-30 19:04 :34 No 25mg 25 mg, Oral, DAILY, First dose on Fri10/27/24 at 0830, Until Discontinu ed, Routine [facility] [id number] fum-folic () 27 mg iron- 1 mg folic tablet 2023-10 00:00: 00 Yes [id number] 1{tbl} Take 1 tablet by mouth in the morning. [facility] ferrous sulfate 325 mg (65 mg iron) tablet ferrous sulfate 325 mg (65 mg iron) tablet 2023-10 00:00: 00 02-16 00:00 :00 No [id number] 325mg Take 1 tablet by mouth in the morning. [facility] ibuprofen 800 mg tablet 2023-10 00:00: 00 12-27 00:00 :00 No [id number] 800mg Take 1 tablet by mouth every 8 (eight) hours as needed (pain). Take with food or milk. [facility] docusate 100 mg capsule 2023-10 00:00: 00 11-18 00:00 :00 No [id number] 200mg Take 2 capsules by mouth once daily as needed for Constipati on. [facility] acetaminoph en 500 mg tablet 2023-10 00:00: 00 11-18 00:00 :00 No [id number] 1000mg Take 2 tablets by mouth every 8 (eight) hours as needed for Pain. [facility] labetaloL 200 mg tablet 2023-10 00:00: 00 11-01 00:00 :00 No [id number] 200mg Take 1 tablet by mouth every 12 (twelve) hours for 30 days. [facility] labetaloL (NORMODYNE) tablet 200 mg 2023-10 17:45: 00 10-27 17:24 :13 No 200mg 200 mg, Oral, Q12H, First dose on 10/25/24 at 1145, Until Discontinu ed, Routine [facility] ibuprofen (IBU) tablet 600 mg 2023-10 00:00: 00 11-01 22:07 :02 No 600mg 600 mg, Oral, Q8HA1, First dose on 10/24/24 at 1800, Until Discontinu ed, Routine [facility] acetaminoph en (TYLENOL) tablet 650 mg 2023-10 00:00: 00 11-01 22:07 :02 No 650mg 650 mg, Oral, Q8H, First dose on 10/24/24 at 1800, Until Discontinu ed, Routine [facility] rho(D) immune globulin (RHOPHYLAC) injection 300 mcg 2023-10 17:54: 43 11-01 22:07 :02 No 300ug [facility] diphenhydrA MINE (BENADRYL) tablet 25 mg 2023-10 17:54: 41 11-01 22:07 :02 No 25mg 25 mg, Oral, Q6HPRN, Starting on 10/24/24 at 1154, Until Fri11/01/24 at 1607, Routine, Sleep, Itching [facility] ondansetron (ZOFRAN (PF)) injection 4 mg 2023-10 17:54: 41 11-01 22:07 :02 No 4mg [facility] simethicone (GAS RELIEF (SIMETHICON E)) chewable tablet 160 mg 2023-10 17:54: 41 11-01 22:07 :02 No 160mg 160 mg, Oral, PC+HSPRN, Starting on Fri10/24/24 at 1154, Until Fri11/01/24 at 1607, Routine, Gas [facility] docusate (COLACE) capsule 200 mg 2023-10 17:54: 41 11-01 22:07 :02 No 200mg 200 mg, Oral, QDAILYPRN, Starting on Fri10/24/24 at 1154, Until Fri11/01/24 at 1607, Routine, Constipati on [facility] benzocaine- menthol (DERMOPLAST ) 20-0.5 % topical spray 2023-10 17:54: 41 11-01 22:07 :02 No [facility] gentamicin 340 mg in NaCl 0.9% (NS) [...] Site: Pelvic, Duration of Therapy: Once (ED) [facility] ampicillin (POLYCILLIN -N) 2,000 mg in NaCl [...] Duration of Therapy: Once (ED) [facility] labetaloL (NORMODYNE) 5 mg/mL injection 20 mg 2023-10 16:45: 00 10-24 15:50 :00 No 20mg 20 mg, Slow IV Push, ONCE, 1 dose, On 10/24/24 at 1045, Routine [facility] acetaminoph en (TYLENOL) tablet 1,000 mg 2023-10 16:00: 00 10-24 15:56 :00 No 1000mg 1,000 mg, Oral, ONCE, 1 dose, On 10/24/24 at 1000, Routine [facility] labetaloL (NORMODYNE) 5 mg/mL injection 20 mg 2023-10 15:00: 00 10-24 14:04 :00 No 20mg 20 mg, Slow IV Push, ONCE, 1 dose, On 10/24/24 at 0900, Routine [facility] ropivacaine 0.2 % (NAROPIN (PF)) epidural infusion 2023-10 00:52: 00 10-24 21:28 :27 No Epidural, CONTINUOUS PRN, Starting on 10/23/24 at 1852, Until 10/24/24 at 1528, Routine, Intra-op [facility] lidocaine-e pinephrine (XYLOCAINE W/EPINEPHRI NE) 1.5 %-1:200,000 injection 2023-10 00:50: 00 10-24 21:28 :27 No Epidural, ONCE INTRA PROCEDURE, Starting on 10/23/24 at 1850, Until 10/24/24 at 1528, Routine, Intra-op [facility] morpHINE injection 4 mg 2023-10 22:45: 00 10-23 21:53 :00 No 4mg 4 mg, Slow IV Push, ONCE, 1 dose, On 10/23/24 at 1645, Routine [facility] metoclopram ernesto HCl (REGLAN) 10 mg in NaCl 0.9% (NS) piggyback 2023-10 22:45: 00 10-23 23:20 :00 No 10mg 10 mg, IV Piggyback, ONCE, 1 dose, On 10/23/24 at 1645, 50 mL [facility] oxytocin (PITOCIN) 30 units in NS 500 mL IV infusion 2023-10 22:15: 13 10-24 17:54 :28 No 2mU/min at 2-40 mL/hr, IV Infusion, TITRATE, Starting on 10/23/24 at 1615, Until 10/24/24 at 1154, KRYSTIN [facility] ondansetron (ZOFRAN (PF)) injection 4 mg 2023-10 21:30: 00 10-23 20:35 :00 No 4mg 4 mg, Slow IV Push, ONCE, On 10/23/24 at 1530, For 1 dose, Please give medication over 2-5 minutes. [facility] acetaminoph en (TYLENOL) tablet 650 mg 2023-10 16:01: 35 10-24 17:54 :28 No 650mg 650 mg, Oral, Q6HPRN, Starting on 10/23/24 at 1001, Until 10/24/24 at 1154, Routine, Pain (scale 4-6) [facility] morpHINE injection 4 mg 2023-10 16:00: 00 10-23 15:15 :00 No 4mg 4 mg, Slow IV Push, ONCE, 1 dose, On 10/23/24 at 1000, Routine [facility] acetaminoph en (TYLENOL) tablet 1,000 mg 2023-10 10:00: 00 10-23 09:37 :00 No 1000mg 1,000 mg, Oral, ONCE, 1 dose, On 10/23/24 at 0400, Routine [facility] acetaminoph en (TYLENOL) tablet 1,000 mg 2023-10 02:09: 00 10-23 02:23 :00 No 1000mg 1,000 mg, Oral, ONCE, 1 dose, On Fri10/22/24 at 2015, Routine [facility] D5W-LR IV infusion 1,000 mL 2023-10 19:30: 00 10-25 11:55 :57 No 1000mL at 75 mL/hr, IV Infusion, CONTINUOUS , Starting on Fri10/22/24 at 1330, Until Fri10/25/24 at 0555, KRYSTIN [facility] LORazepam (ATIVAN) injection 2 mg 2023-10 19:19: 45 11-01 22:07 :02 No 2mg 2 mg, Intravenou s, PRN - SEE INSTRUCTIO NS, 2 doses, Starting on Fri10/22/24 at 1319, Until Fri11/01/24 at 1607, Routine, Seizures [facility] proCHLORper azine (COMPAZINE) tablet 10 mg 2023-10 18:03: 00 10-22 18:10 :00 No 10mg 10 mg, Oral, ONCE, 1 dose, On Fri10/22/24 at 1215, Routine [facility] acetaminoph en (TYLENOL) tablet 1,000 mg 2023-10 13:42: 00 10-22 13:51 :00 No 1000mg 1,000 mg, Oral, ONCE, 1 dose, On Fri10/22/24 at 0745, Routine [facility] clindamycin 150 mg capsule 2023-10 00:00: 00 10-22 00:00 :00 No [id number] 450mg Take 3 capsules by mouth in the morning and 3 capsules at noon and 3 capsules in the evening. Do all this for 7 days. [facility] HYDROcodone -acetaminop hen 5-325 mg tablet 2023-10 00:00: 00 10-22 00:00 :00 No [id number] 1{tbl} Take 1 tablet by mouth every 6 (six) hours as needed for Pain (scale 7-10) (Take at bedtime.) for up to 7 days. Indication s: acute pain [facility] lactated ringers IV infusion 1,000 mL 2023-10 22:00: 00 10-24 17:54 :28 No 1000mL at 125 mL/hr, 1,000 mL, IV Infusion, CONTINUOUS , Starting on Fri10/21/24 at 1600, Until Fri10/24/24 at 1154, Routine [facility] acetaminoph en (TYLENOL) tablet 1,000 mg 2023-10 20:05: 00 10-21 21:31 :00 No 1000mg 1,000 mg, Oral, ONCE, 1 dose, On Fri10/21/24 at 1415, Routine [facility] lactated ringers IV infusion 1,000 mL 2023-10 19:45: 00 10-23 02:45 :00 No 1000mL at 999 mL/hr, 1,000 mL, IV Infusion, ONCE, 1 dose, On Fri10/21/24 at 1345, Routine [facility] acetaminoph en (TYLENOL) tablet 1,000 mg 2023-10 15:02: 00 10-20 15:14 :00 No 1000mg 1,000 mg, Oral, ONCE, 1 dose, On Fri10/20/24 at 0915[facility] bet[facility] acet,sod phos (CELESTONE SOLUSPAN) 6 mg/mL injection 12 mg 2023-10 14:53: 00 10-20 15:15 :00 No 12mg 12 mg, Intramuscu lar, ONCE, 1 dose, On Fri10/20/24 at 0900, KRYSTIN [facility] betamethaso ne acet,sod phos (CELESTONE SOLUSPAN) 6 mg/mL injection 12 mg 2023-10 15:15: 00 Yes 12mg 12 mg, Intramuscu lar, Q24H, First dose on Fri10/19/24 at 0915, Until Discontinu ed, Routine [facility] terbutaline (BRETHINE) injection 0.25 mg 2023-10 10:59: 00 10-19 11:07 :00 No .25mg 0.25 mg, Subcutaneo us, ONCE, 1 dose, On Fri10/19/24 at 0500, Routine [facility] FENTanyl (PF) (SUBLIMAZE) injection 100 mcg 2023-10 04:45: 00 10-19 04:35 :00 No 100ug 100 mcg, Slow IV Push, ONCE, 1 dose, On Fri10/18/24 at 2245, Routine [facility] proCHLORper azine (COMPAZINE) injection 10 mg 2023-10 02:59: 00 10-19 03:07 :00 No 10mg 10 mg, Slow IV Push, ONCE, 1 dose, On Fri10/18/24 at 2115, Routine [facility] metoclopram ernesto HCl (REGLAN) injection 10 mg 2023-10 02:00: 00 10-19 01:45 :00 No 10mg 10 mg, Slow IV Push, ONCE NOW, 1 dose, On Fri10/18/24 at 2000, Routine [facility] NaCl 0.9% (NS) IV infusion 1,000 mL 2023-10 01:30: 00 Yes 1000mL at 150 mL/hr, IV Infusion, CONTINUOUS , Starting on Fri10/18/24 at 1930, Until Discontinu ed, Routine [facility] ondansetron (ZOFRAN (PF)) injection 4 mg 2023-10 01:15: 25 Yes 4mg 4 mg, Slow IV Push, Q6HPRN, Nausea and Vomiting (N/V), Starting on Fri10/18/24 at 1915, Please give medication over 2-5 minutes. [facility] ferrous sulfate 325 mg (65 mg iron) tablet 2023-10 1-15 00:00: 00 10-26 00:00 :00 No [id number] 325mg Take 1 tablet by mouth in the morning and 1 tablet in the evening. [facility] vit no.130-iron -folic ( VITAMIN) 2023-10 0-22 00:00: 00 10-26 00:00 :00 No [id number] 1{tbl} Take 1 tablet by mouth in the morning. [facility] ondansetron (ZOFRAN-ODT ) disintegrat ing tablet 4 mg 06-01 02:45: 00 06-01 02:16 :00 No 4mg 4 mg, Oral, ONCE, 1 dose, On Fri05/31/24 at 2145, KRYSTIN [facility] acetaminoph en (TYLENOL) tablet 1,000 mg 06-01 01:45: 00 06-01 02:16 :00 No 1000mg 1,000 mg, Oral, ONCE, 1 dose, On Fri05/31/24 at 2045, KRYSTIN [facility] azithromyci n 500 mg tablet 06-01 00:00: 00 07-20 00:00 :00 No [id number] 1000mg Take 2 tablets by mouth in the morning. [facility] metroNIDAZO LE (FLAGYL) 500 mg tablet 06-01 00:00: 00 06-09 04:59 :00 No [id number] 500mg Take 1 tablet by mouth in the morning and 1 tablet in the evening. Do all this for 7 days. [facility] proMETHazin e 25 mg tablet 06-01 00:00: 00 06-02 04:59 :00 No 25mg Take 1 tablet by mouth once now for 1 dose. [facility] ondansetron 4 mg disintegrat ing tablet 05-31 00:00: 00 07-20 00:00 :00 No [id number] 4mg Take 1 tablet by mouth every 12 (twelve) hours as needed for Nausea and Vomiting (N/V). [facility] Nitrofurant oin&Nit. Macrocryst 100 mg capsule 05-31 00:00: 00 06-08 04:59 :00 No [id number] 100mg Take 1 capsule by mouth in the morning and 1 capsule in the evening. Do all this for 7 days. [facility] azithromyci n 500 mg tablet 05-31 00:00: 00 06-01 04:59 :00 No [id number] 1000mg Take 2 tablets by mouth once now for 1 dose. [facility] PNV no.95/jessi us fum/folic ac ( ORAL) 05-27 14:49: 48 08-17 00:00 :00 No Take by mouth. [facility] Immunizations Ordered Immunization Name Filled Immunization Name Date Status Comments Source TDAP 2024-09-14 00:00:[address] [facility] Vital Signs Vital Name Observation Time Observation Value Comments S [facility]ott Systolic blood pressure 2025-07-27 18:12:00 128 mm[Hg] [facility] Diastolic blood pressure 2025-07-27 18:12:00 76 mm[Hg] [facility] Heart rate 2025-07-27 18:12:00 99 /min [facility] Body temperature 2025-07-27 18:12:[address] [facility] Body height 2025-07-27 18:12:00 162.6 cm [facility] Body weight 2025-07-27 18:12:00 65.318 kg [facility] BMI 2025-07-27 18:12:00 24.72 kg/m2 [facility] Systolic blood pressure 2025-05-24 20:53:00 105 mm[Hg] [facility] Diastolic blood pressure 2025-05-24 20:53:00 71 mm[Hg] [facility] Heart rate 2025-05-24 20:53:00 88 /min [facility] Body temperature 2025-05-24 20:53:[address] [facility] Body height 2025-05-24 20:53:00 162.6 cm [facility] [facility] Body weight 2025-05-24 20:53:00 64.501 kg [facility] BMI 2025-05-24 20:53:00 24.41 kg/m2 [facility] Systolic blood pressure 2025-02-21 20:51:00 115 mm[Hg] [facility] Diastolic blood pressure 2025-02-21 20:51:00 67 mm[Hg] [facility] Heart rate 2025-02-21 20:51:00 90 /min [facility]ive [facility] Body temperature 2025-02-21 20:51:[address] [facility] Respiratory rate 2025-02-21 20:51:00 18 /min [facility] Systolic blood pressure 2025-02-16 19:59:00 123 mm[Hg] [facility] Diastolic blood pressure 2025-02-16 19:59:00 70 mm[Hg] [facility] Heart rate 2025-02-16 19:59:00 103 /min [facility] 2025-02-16 19:59:[address] [facility] Body height 2025-02-16 19:59:00 162.6 cm [facility] Body weight 2025-02-16 19:59:00 63.866 kg [facility] BMI 2025-02-16 19:59:00 24.17 kg/m2 [facility] Systolic blood pressure 2025-01-20 15:20:00 99 mm[Hg] [facility] Diastolic blood pressure 2025-01-20 15:20:00 73 mm[Hg] [facility] Heart rate 2025-01-20 15:20:00 95 /min [facility]ive [facility] Respiratory rate 2025-01-20 15:20:00 18 /min [facility] Body height 2025-01-20 15:20:00 162.6 cm [facility] Body weight 2025-01-20 15:20:00 63.957 kg [facility] BMI 2025-01-20 15:20:00 24.20 kg/m2 [facility] Systolic blood pressure 2025-01-20 18:34:00 129 mm[Hg] [facility] Diastolic blood pressure 2025-01-20 18:34:00 80 mm[Hg] [facility] Heart rate 2025-01-20 18:34:00 111 /min Unive [facility] Body temperature 2025-01-20 18:34:[address] [facility] Respiratory rate 2025-01-20 18:34:00 16 /min [facility] Body weight 2025-01-20 18:34:00 64.411 kg [facility] Oxygen saturation in Arterial blood by Pulse oximetry 2025-01-20 18:34:00 95 /min [facility] Systolic blood pressure 2024-12-27 15:55:00 108 mm[Hg] [facility] Diastolic blood pressure 2024-12-27 15:55:00 67 mm[Hg] [facility] Heart rate 2024-12-27 15:55:00 79 /min Unive [facility] Body temperature 2024-12-27 15:55:[address] [facility] Respiratory rate 2024-12-27 15:55:00 18 /min [facility] Body height 2024-12-27 15:55:00 162.6 cm [facility] Body weight 2024-12-27 15:55:00 64.411 kg [facility] BMI 2024-12-27 15:55:00 24.37 kg/m2 [facility] Systolic blood pressure 2024-12-13 20:57:00 114 mm[Hg] [facility] Diastolic blood pressure 2024-12-13 20:57:00 54 mm[Hg] [facility] Heart rate 2024-12-13 20:57:00 92 /min [facility]ive [facility] Body temperature 2024-12-13 20:57:[address] [facility] Respiratory rate 2024-12-13 20:57:00 16 /min [facility] Body height 2024-12-13 20:57:00 162.6 cm [facility] Body weight 2024-12-13 20:57:00 64.411 kg [facility] BMI 2024-12-13 20:57:00 24.37 kg/m2 [facility] Oxygen saturation in Arterial blood by Pulse oximetry 2024-12-13 20:57:00 96 /min [facility] Systolic blood pressure 2024-12-13 20:42:00 103 mm[Hg] Arona o [facility] Diastolic blood pressure 2024-12-13 20:42:00 55 mm[Hg] [facility] Heart rate 2024-12-13 20:42:00 85 /min Unive [facility] Respiratory rate 2024-12-13 20:42:00 18 /min [facility] Body height 2024-12-13 20:42:00 162.6 cm [facility] Body weight 2024-12-13 20:42:00 63.957 kg [facility] BMI 2024-12-13 20:42:00 24.20 kg/m2 [facility] Body weight 2024-11-30 20:34:00 63.957 kg [facility] BMI 2024-11-30 20:34:00 24.20 kg/m2 [facility] Systolic blood pressure 2024-11-25 16:46:00 113 mm[Hg] Arona o [facility] Diastolic blood pressure 2024-11-25 16:46:00 77 mm[Hg] [facility] Heart rate 2024-11-25 16:46:00 90 /min Unive [facility] Respiratory rate 2024-11-25 16:46:00 18 /min [facility] Body height 2024-11-25 16:46:00 162.6 cm [facility] Body weight 2024-11-25 16:46:00 63.957 kg [facility] BMI 2024-11-25 16:46:00 24.20 kg/m2 [facility] Systolic blood pressure 2024-11-24 23:08:00 124 mm[Hg] [facility] Diastolic blood pressure 2024-11-24 23:08:00 77 mm[Hg] Arona o [facility] Heart rate 2024-11-24 23:08:00 92 /min Unive [facility] Body temperature 2024-11-24 23:08:[address] [facility] Respiratory rate 2024-11-24 23:08:00 14 /min [facility] Body height 2024-11-24 23:08:00 162.6 cm [facility] Body weight 2024-11-24 23:08:00 63.504 kg [facility] BMI 2024-11-24 23:08:00 24.03 kg/m2 [facility] Oxygen saturation in Arterial blood by Pulse oximetry 2024-11-24 23:08:00 100 /min [facility] Systolic blood pressure 2024-11-22 20:20:00 111 mm[Hg] [facility] Diastolic blood pressure 2024-11-22 20:20:00 69 mm[Hg] [facility] Heart rate 2024-11-22 20:20:00 79 /min Unive [facility] Respiratory rate 2024-11-22 20:20:00 18 /min [facility] Body height 2024-11-22 20:20:00 162.6 cm [facility] Body weight 2024-11-22 20:20:00 63.504 kg [facility] BMI 2024-11-22 20:20:00 24.03 kg/m2 [facility] Systolic blood pressure 2024-11-18 19:39:00 104 mm[Hg] [facility] Diastolic blood pressure 2024-11-18 19:39:00 68 mm[Hg] [facility] Heart rate 2024-11-18 19:39:00 95 /min Unive [facility] Body temperature 2024-11-18 19:39:[address] [facility] Respiratory rate 2024-11-18 19:39:00 18 /min [facility] Body height 2024-11-18 19:39:00 162.6 cm [facility] Body weight 2024-11-18 19:39:00 62.234 kg [facility] BMI 2024-11-18 19:39:00 23.55 kg/m2 [facility] Systolic blood pressure 2024-11-05 16:26:00 121 mm[Hg] [facility] Diastolic blood pressure 2024-11-05 16:26:00 80 mm[Hg] [facility] Heart rate 2024-11-05 16:26:00 76 /min [facility] 2024-11-05 16:26:00 18 /min [facility] Body weight 2024-11-05 16:26:00 63.141 kg [facility] Systolic blood pressure 2024-11-01 18:11:00 126 mm[Hg] [facility] Diastolic blood pressure 2024-11-01 18:11:00 79 mm[Hg] [facility] Body temperature 2024-11-01 18:11:[address] [facility] Respiratory rate 2024-11-01 18:11:00 18 /min [facility] Oxygen saturation in Arterial blood by Pulse oximetry 2024-11-01 18:11:00 99 /min [facility] Heart rate 2024-11-01 13:57:00 105 /min Unive [facility] Body height 2024-10-23 02:40:00 162.6 cm [facility] Body weight 2024-10-23 02:40:00 83.008 kg [facility] BMI 2024-10-23 02:40:00 31.40 kg/m2 [facility] Systolic blood pressure 2024-10-21 16:01:00 119 mm[Hg] [facility] Diastolic blood pressure 2024-10-21 16:01:00 78 mm[Hg] [facility] Heart rate 2024-10-21 16:00:00 80 /min Unive [facility] Body temperature 2024-10-21 16:00:[address] [facility] Respiratory rate 2024-10-21 16:00:00 18 /min [facility] Body height 2024-10-21 16:00:00 162.6 cm [facility] Body weight 2024-10-21 16:00:00 83.28 kg [facility] BMI 2024-10-21 16:00:00 31.51 kg/m2 [facility] Systolic blood pressure 2024-10-20 15:15:00 142 mm[Hg] [facility] Diastolic blood pressure 2024-10-20 15:15:00 85 mm[Hg] [facility] Heart rate 2024-10-20 15:15:00 95 /min Unive [facility] Body temperature 2024-10-20 15:15:[address] [facility] Respiratory rate 2024-10-20 15:15:00 16 /min [facility] Oxygen saturation in Arterial blood by Pulse oximetry 2024-10-20 15:15:00 96 /min [facility] Heart rate 2024-10-19 17:49:00 88 /min Unive [facility] Oxygen saturation in Arterial blood by Pulse oximetry 2024-10-19 17:49:00 100 /min [facility] Systolic blood pressure 2024-10-19 17:45:00 141 mm[Hg] [facility] Diastolic blood pressure 2024-10-19 17:45:00 82 mm[Hg] [facility] Body temperature 2024-10-19 17:45:[address] [facility] Respiratory rate 2024-10-19 17:45:00 18 /min [facility] Body height 2024-10-19 00:11:00 162.6 cm [facility] Body weight 2024-10-19 00:11:00 80.287 kg [facility] BMI 2024-10-19 00:11:00 30.38 kg/m2 [facility] Systolic blood pressure 2024-10-13 21:50:00 133 mm[Hg] [facility] Diastolic blood pressure 2024-10-13 21:50:00 79 mm[Hg] [facility] Heart rate 2024-10-13 21:50:00 101 /min Unive [facility] Body temperature 2024-10-13 21:50:[address] [facility] Body height 2024-10-13 21:50:00 162.6 cm [facility] Body weight 2024-10-13 21:50:00 77.021 kg [facility] BMI 2024-10-13 21:50:00 29.15 kg/m2 [facility] Systolic blood pressure 2024-09-28 18:55:00 129 mm[Hg] [facility] Diastolic blood pressure 2024-09-28 18:55:00 79 mm[Hg] [facility] Heart rate 2024-09-28 18:55:00 85 /min Unive [facility] Body temperature 2024-09-28 18:55:[address] [facility] Respiratory rate 2024-09-28 18:55:00 18 /min [facility] Body weight 2024-09-28 18:55:00 73.573 kg [facility] Systolic blood pressure 2024-09-14 22:11:00 108 mm[Hg] [facility] Diastolic blood pressure 2024-09-14 22:11:00 70 mm[Hg] [facility] Heart rate 2024-09-14 22:11:00 89 /min Unive [facility] Body temperature 2024-09-14 22:11:[address] [facility] Body height 2024-09-14 22:11:00 162.6 cm [facility] Body weight 2024-09-14 22:11:00 71.124 kg [facility] BMI 2024-09-14 22:11:00 26.91 kg/m2 [facility] Systolic blood pressure 2024-08-17 21:16:00 109 mm[Hg] [facility] Diastolic blood pressure 2024-08-17 21:16:00 67 mm[Hg] [facility] Heart rate 2024-08-17 21:16:00 84 /min Unive [facility] Body weight 2024-08-17 21:16:00 68.312 kg [facility] Systolic blood pressure 2024-07-22 20:59:00 105 mm[Hg] [facility] Diastolic blood pressure 2024-07-22 20:59:00 68 mm[Hg] [facility] Heart rate 2024-07-22 20:59:00 86 /min Unive [facility] Body temperature 2024-07-22 20:59:[address] [facility] Body height 2024-07-22 20:59:00 162.6 cm [facility] Body weight 2024-07-22 20:59:00 66.225 kg [facility] BMI 2024-07-22 20:59:00 25.06 kg/m2 [facility] Oxygen saturation in Arterial blood by Pulse oximetry 2024-07-22 20:59:00 98 /min [facility] Systolic blood pressure 2024-07-20 21:21:00 115 mm[Hg] [facility] Diastolic blood pressure 2024-07-20 21:21:00 78 mm[Hg] [facility] Heart rate 2024-07-20 21:21:00 102 /min [facility] Body temperature 2024-07-20 21:21:[address] [facility] Body height 2024-07-20 21:21:00 162.6 cm [facility] Body weight 2024-07-20 21:21:00 66.497 kg [facility] BMI 2024-07-20 21:21:00 25.16 kg/m2 [facility] Systolic blood pressure 2024-06-29 20:15:00 108 mm[Hg] [facility] Diastolic blood pressure 2024-06-29 20:15:00 65 mm[Hg] [facility] Heart rate 2024-06-29 20:15:00 89 /min Unive [facility] Body height 2024-06-29 20:15:00 162.6 cm [facility] Body weight 2024-06-29 20:15:00 66.497 kg [facility] BMI 2024-06-29 20:15:00 25.16 kg/m2 [facility] Systolic blood pressure 2024-06-01 03:39:00 90 mm[Hg] [facility] Diastolic blood pressure 2024-06-01 03:39:00 64 mm[Hg] [facility] Heart rate 2024-06-01 03:39:00 75 /min [facility] Body temperature 2024-06-01 03:39:[address] [facility] Respiratory rate 2024-06-01 03:39:00 14 /min [facility] Oxygen saturation in Arterial blood by Pulse oximetry 2024-06-01 03:39:00 98 /min [facility] Body height 2024-06-01 01:23:00 162.6 cm [facility] Body weight 2024-06-01 01:23:00 65.772 kg [facility] BMI 2024-06-01 01:23:00 24.89 kg/m2 [facility] Body mass index (BMI) [Percentile] Per age and sex 2024-06-01 01:23:00 79.62 % [facility] Systolic blood pressure 2024-05-27 19:43:00 108 mm[Hg] [facility] Diastolic blood pressure 2024-05-27 19:43:00 69 mm[Hg] [facility] Heart rate 2024-05-27 19:43:00 91 /min [facility] Body temperature 2024-05-27 19:43:[address] [facility] Body height 2024-05-27 19:43:00 162.6 cm [facility] Body weight 2024-05-27 19:43:00 67.677 kg [facility] BMI 2024-05-27 19:43:00 25.61 kg/m2 [facility] Body mass index (BMI) [Percentile] Per age and sex 2024-05-27 19:43:00 83.17 % [facility] Procedures Procedure Date / Time Performed Performing Clinician Source POCT TEST 2025-07-27 00:00:[address] [facility] POCT URINALYSIS W/O SPECIFIC GRAVITY 2025-07-27 00:00:[address] [facility] POCT TEST 2025-02-21 20:59:[address] [facility] POCT TEST 2025-02-16 20:01:[address] [facility] FUNDUS PHOTOS - OU - BOTH EYES 2024-11-30 21:23:[address] [facility] OCT, RETINA - OU - BOTH EYES 2024-11-30 21:23:[address] [facility] US GALL BLADDER 2024-11-24 23:54:[address] [facility] POCT TEST 2024-11-24 23:26:[address] [facility] LIPASE 2024-11-24 23:21:00 Doug Holland Un [facility] COMP. METABOLIC PANEL ([id number]) 2024-11-24 23:21:[address] [facility] CBC WITH DIFF 2024-11-24 23:21:00 [facility] 2024-11-24 23:21:00 Doug Holland Un [facility] HB ABO GROUPING 2024-10-29 10:10:[address] [facility] MR BRAIN WO CONTRAST 2024-10-27 15:59:[address] [facility] SGOT (ASPARTATE AMINO TRANSFER) 2024-10-27 14:29:[address]ás[address] [facility] CREATININE 2024-10-27 14:29:00 Rubin Velásquez Fabi [facility] ALANINE AMINO TRANSFERASE(SGPT 2024-10-27 14:29:[address]ás[address] [facility] LACTATE DEHYDROGENASE 2024-10-27 14:29:[address] [facility] URIC ACID 2024-10-27 14:29:[address]ás[address] [facility] CBC WITH DIFF 2024-10-27 14:29:[address]ás[address] [facility] URINALYSIS 2024-10-27 14:29:[address]ás[address] [facility] PROTEIN CREAT RATIO URINE RANDOM 2024-10-27 14:29:[address]ás[address] [facility] MAGNESIUM 2024-10-25 14:16:[address] [facility] COMP. METABOLIC PANEL ([id number]) 2024-10-25 14:16:[address] [facility] CBC WITH DIFF 2024-10-25 12:00:00 [facility] AMINO TRANSFER) 2024-10-25 04:21:00 Ally [facility]illa [facility] CREATININE 2024-10-25 04:21:[address] [facility] ALANINE AMINO TRANSFERASE(SGPT 2024-10-25 04:21:00 Leandra [facility]illa[facility] LACTATE DEHYDROGENASE 2024-10-25 04:21:[address] [facility] URIC ACID 2024-10-25 04:21:[address] [facility] MAGNESIUM 2024-10-25 04:21:[address] [facility] CBC WITH DIFF 2024-10-25 04:21:[address] [facility] MAGNESIUM 2024-10-24 15:10:[address] [facility] BASIC METABOLIC PANEL (NA, K, CL, CO2, GLUCOSE, BUN, CREATININE, CA) 2024-10-24 15:10:[address] [facility] VENOUS CORD GAS 2024-10-24 11:38:[address] [facility] CENTRAL NEURAXIAL BLOCK 2024-10-24 11:23:[address] [facility] CENTRAL NEURAXIAL BLOCK 2024-10-24 01:03:[address] [facility] HEPATITIS B SURFACE ANTIGEN 2024-10-23 03:40:[address] [facility] HB ABO GROUPING 2024-10-23 03:40:[address] [facility] RHO (D) IMMUNE GLOBULIN 2024-10-23 03:40:[address] [facility] HIV 1/2 AG-AB WITH REFLEX 2024-10-23 03:40:00 Jenniffer [facility] SYPHILIS IGG/IGM 2024-10-23 03:40:00 Jenniffer [facility] SGOT (ASPARTATE AMINO TRANSFER) 2024-10-22 18:25:[address] [facility] CREATININE 2024-10-22 18:25:00 Natalee Amezquita [facility] ALANINE AMINO TRANSFERASE(SGPT 2024-10-22 18:25:[address] [facility] LACTATE DEHYDROGENASE 2024-10-22 18:25:[address] [facility] URIC ACID 2024-10-22 18:25:00 Natalee Amezquita [facility] CBC WITH DIFF 2024-10-22 18:25:00 Natalee Amezquita [facility] URINALYSIS 2024-10-22 18:25:00 Natalee Amezquita [facility] PROTEIN CREAT RATIO URINE RANDOM 2024-10-22 18:25:00 Natalee Amezquita [facility] NON-STRESS TEST 2024-10-22 01:19:[address] [facility] HB ABO GROUPING 2024-10-21 19:46:00 Luma Abreu [facility] ADC ONLY - FERN TEST 2024-10-21 19:46:[address] [facility] US PELVIS > 14 WEEKS 2024-10-21 19:13:[address] [facility] US BIOPHYSICAL PROFILE 2024-10-21 19:13:[address] [facility] ADC CLC OR LCC ONLY - WET PREP 2024-10-19 12:09:[address] [facility] CREATININE 2024-10-19 11:30:00 Natalee Amezquita [facility] LACTATE DEHYDROGENASE 2024-10-19 11:30:[address] [facility] URIC ACID 2024-10-19 11:30:00 Natalee Amezquita [facility] AMYLASE 2024-10-19 11:30:00 Alfredo Natalee [facility] LIPASE 2024-10-19 11:30:00 Alfredo [facility] COMP. METABOLIC PANEL ([id number]) 2024-10-19 11:30[facility] 2024-10-19 11:30:00 Alfredo Natalee [facility] URINALYSIS 2024-10-19 11:30:00 Alfredo [facility] PROTEIN CREAT RATIO URINE RANDOM 2024-10-19 11:30:00 [facility] 2024-10-19 01:41:00 Natalee Amezquita [facility] LIPASE 2024-10-19 01:41:00 Alfredo Natalee [facility] MAGNESIUM 2024-10-19 01:41:00 Natalee Amezquita [facility] COMP. METABOLIC PANEL ([id number]) 2024-10-19 01:41:00 [facility]FF 2024-10-19 01:41:00 Natalee Amezquita [facility] POCT URINALYSIS W/O SPECIFIC GRAVITY 2024-10-13 00:00:[address] [facility] POCT URINALYSIS W/O SPECIFIC GRAVITY 2024-09-28 18:56:[address] [facility] TDAP VACCINE, >11 YRS, IM 2024-09-14 22:32:[address] [facility] POCT URINALYSIS W/O SPECIFIC GRAVITY 2024-09-14 00:00:[address] [facility] DME/SUPPLY JUSTIFICATION 2024-08-18 14:15:47 Doc tor Unassigned, [place] [facility] POCT URINALYSIS W/O SPECIFIC GRAVITY 2024-08-17 00:00:[address] [facility] SECOND AND THIRD TRIMESTER ULTRASOUND 2024-08-06 19:11:[address] [facility] POCT URINALYSIS W/O SPECIFIC GRAVITY 2024-07-20 00:00:[address] [facility] POCT URINALYSIS W/O SPECIFIC GRAVITY 2024-06-29 00:00:[address] [facility] SCANNED LAB RESULTS 2024-06-10 16:13:06 Doctor Ozzy bernal, [place] [facility] [facility] SCANNED LAB RESULTS 2024-06-10 16:13:05 Doctor Ozzy bernal, [place] [facility] URINALYSIS 2024-06-01 02:51:00 Brian Hayes [facility] <14 WEEKS US LIMITED 2024-05-27 20:25:[address] [facility] POCT TEST 2024-05-27 00:00:[address] [facility] POCT URINALYSIS W/O SPECIFIC GRAVITY 2024-05-27 00:00:[address] [facility] Encounters Start Date/Time End Date/Time Encounter Type Admission Type Attending [facility] Facility Care Department Encounter ID Source 2024-10-19 12:19:57 Outpatient X [facility] [id number] [facility] 2025-07-28 00:00:00 2025-08-02 16:20:37 Patient Secure Msg Natalee Amezquita [facility] BUILD[facility] 1.2.840.114 350.1.13.10 4.2.7.2.686 [id number] 134 [id number] [facility] 2025-07-28 00:00:00 2025-07-28 13:55:40 Case Management Natalee Amezquita [facility] 1.2.840.114 350.1.13.10 4.2.7.2.686 [id number] 134 [id number] [facility] 2025-07-28 00:00:00 2025-07-28 13:38:[address] [facility] 1..840.114 350.1.13.10 4.2.7.2.686 [id number] 134 [id number] [facility] 2025-07-27 13:00:00 2025-07-27 14:14:36 Office Visit R Natalee Amezquita [facility] 1.2840.114 350.1.13.10 4.2.7.2.686 [id number] 134 [id number] [facility] 2025-07-25 00:00:00 2025-07-26 12:18:42 Patient Secure Msg Doctor Unassigned, [place] Doctor Unassigned, [place] [facility] 1.284.114 350.1.13.10 4.2.7.2.686 [id number] 134 [id number] [facility] 2025-07-25 15:15:00 2025-07-25 15:15:00 Outpatient R TRAY AMEZQUITAEN AMEZQUITANATALEE [facility] [id number] [facility] 2025-07-22 00:00:00 2025-07-22 14:31:27 Telephone Natalee Amezquita [facility] 1.284.114 350.1.13.10 4.2.7.2.686 [id number] 134 [id number] [facility] 2025-07-22 00:00:00 2025-07-22 14:02:27 Patient Secure Msg Doctor Unassigned, [place] Doctor Unassigned, [place] [facility] 1.2840.114 350.1.13.10 4.2.7.2.686 [id number] 134 [id number] [facility] 2025-05-23 00:00:00 2025-06-25 18:27:03 Patient Secure Msg Natalee Amezquita [facility] 1.2840.114 350.1.13.10 4.2.7.2.686 [id number] 134 [id number] [facility] 2025-05-24 16:00:00 2025-05-24 16:00:00 Office Visit R [facility] 1.2.840.114 350.1.13.10 4.2.7.2.686 [id number] 134 [id number] [facility] 2025-05-24 14:00:00 2025-05-24 14:00:00 Outpatient R NATALEE AMEZQUITA VIEN [facility] [id number] [facility] 2025-02-17 00:00:00 2025-03-26 18:26:35 Patient Secure Msg Natalee Amezquita [facility] BUILDING 1.2.840.114 350.1.13.10 4.2.7.2.686 [id number] 134 [id number] [facility] 2025-02-28 15:30:00 2025-02-28 15:30:00 [facility] [id number] [facility] 2025-02-22 14:30:00 2025-02-22 14:30:00 Outpatient R GARYROSA MARIAOzzy LEATHA LEE LEATHA [facility] [id number] [facility] 2025-02-21 15:30:00 2025-02-21 16:26:39 Outpatient [facility] [id number] [facility] 2025-02-21 15:30:00 2025-02-21 16:26:39 Office Visit Natalee Amezquita [facility] 1.2.840.114 350.1.13.10 4.2.7.2.686 [id number] 134 [id number] [facility] 2025-02-16 15:00:00 2025-02-16 15:17:18 Outpatient R [facility] [id number] [facility] 2025-02-16 15:00:00 2025-02-16 15:17:18 Office Visit Natalee [facility]qu[facility] 1.2.840.114 350.1.13.10 4.2.7.2.686 [id number] 134 [id number] [facility] 2025-01-25 00:00:00 2025-01-25 09:45:[address] [facility] 1.2.840.114 350.1.13.10 4.2.7.2.686 [id number] 134 [id number] [facility] 2025-01-20 14:30:00 2025-01-20 14:41:19 Outpatient R TRAY AMEZQUITAEN AMEZQUITA NATALEE [facility] [id number] [facility] 2025-01-20 14:30:00 2025-01-20 14:41:19 Nurse Visit Nurse, [facility] Leslie Solitario Vien Cam Nurse, [facility] BUILDING 1.2.840.114 350.1.13.10 4.2.7.2.686 [id number] 134 [id number] [facility] 2025-01-20 13:30:00 2025-01-20 14:18:58 Office Visit Leslie Solitario [facility] 1.2.840.114 350.1.13.10 4.2.7.2.686 [id number] [facility] 2025-01-10 10:00:00 2025-01-10 10:00:00 Outpatient R [facility] [id number] [facility] 2025-01-04 08:45:00 2025-01-04 13:50:00 Outpatient R LESLIE SOLITARIO [facility] JAYCEE [id number] [facility] 2024-12-27 10:00:00 2024-12-27 10:23:39 Outpatient R NATALEE AMEZQUITA NATALEE [facility] [id number] [facility] 2024-12-27 10:00:00 2024-12-27 10:23:39 Routine Visit Amezquita Natalee Sullivan [facility] 1.2840.114 350.1.13.10 4.2.7.2.686 [id number] 134 [id number] [facility] 2024-12-15 00:00:00 2024-12-23 16:25:24 Patient Secure Msg Natalee Amezquita Nate [facility] 1.2.114 350.1.13.10 4.2.7.2.686 [id number] 134 [id number] [facility] 2024-12-13 15:45:00 2024-12-13 15:48:58 Outpatient R LESLIE SOLITARIO [facility] [id number] [facility] 2024-12-13 15:45:00 2024-12-13 15:48:58 Office Visit Leslie Solitario [facility] 1.2.114 350.1.13.10 4.2.7.2.686 [id number] [facility] 2024-12-13 14:00:00 2024-12-13 14:39:46 Nurse Visit Nurse, [facility] Natalee Amezquita Nate [facility] BU[facility] 1.284.114 350.1.13.10 4.2.7.2.686 [id number] 134 [id number] [facility] 2024-06-10 00:00:00 2024-12-11 07:07:13 Orders Only Doctor Unassigned, [place] Doctor Unassigned, [place] [facility] 1.20.114 350.1.13.10 4.2.7.2.686 [id number] [facility] 2024-06-10 00:00:00 2024-12-11 07:07:01 Orders Only Doctor Unassigned, [place] Doctor Unassigned, [place] [facility] 1.0.114 350.1.13.10 4.2.7.2.686 [id number] [facility] 2024-08-18 00:00:00 2024-12-11 06:45:44 Orders Only Doctor Unassigned, [place] Doctor Unassigned, [place] [facility] 1.0.114 350.1.13.10 4.2.7.2.686 [id number] [id number] [facility] 2024-11-30 14:15:00 2024-11-30 15:41:22 Outpatient R LEATHA HOWARD [facility] [id number] [facility] 2024-11-30 14:15:00 2024-11-30 15:41:22 Office Visit Lee [facility] 1..114 350.1.13.10 4.2.7.2.686 [id number] 136 [id number] [facility] 2024-11-25 10:30:00 2024-11-25 10:46:37 Outpatient R NATALEE AMEZQUITA VIEN [facility] [id number] [facility] 2024-11-25 10:30:00 2024-11-25 10:46:37 Nurse Visit Nurse, [facility] Natalee Amezquita Nurse, [facility] 1..114 350.1.13.10 4.2.7.2.686 [id number] 134 [id number] [facility] 2024-11-24 17:11:00 2024-11-24 20:13:00 Emergency X DOUG HOLLAND [facility] [id number] [facility] 2024-11-24 17:11:00 2024-11-24 20:13:00 Emergency Doug Holland [facility] 1.2.840.114 350.1.13.10 4.2.7.2.686 [id number] [id number] [facility] 2024-11-22 14:00:00 2024-11-22 14:26:30 Outpatient R NATALEE AMEZQUITA VIEN [facility] [id number] [facility] 2024-11-22 14:00:00 2024-11-22 14:26:30 Nurse Visit Nurse, [facility] Natalee [facility]mezquita [facility], [facility] BU[facility] 1.2.840.114 350.1.13.10 4.2.7.2.686 [id number] 134 [id number] [facility] 2024-10-18 00:00:00 2024-11-20 18:17:35 Patient Secure Msg Doctor Unassigned, [place] Doctor Unassigned, [place] [facility] BUILD[facility] 1.2.840.114 350.1.13.10 4.2.7.2.686 [id number] 134 [id number] [facility] 2024-11-18 00:00:00 2024-11-18 16:16:[address] [facility] BU[facility] 1.2.840.114 350.1.13.10 4.2.7.2.686 [id number] 134 [id number] [facility] 2024-11-18 13:15:00 2024-11-18 13:59:39 Outpatient R NATALEE AMEZQUITA VIEN [facility] [id number] [facility] 2024-11-18 13:15:00 2024-11-18 13:59:39 Routine Visit Natalee Amezquita [facility] BUILD[facility] 1.2.840.114 350.1.13.10 4.2.7.2.686 [id number] 134 [id number] [facility] 2024-11-16 09:15:00 2024-11-16 09:15:00 Outpatient R LEATHA HOWARD RENUKA [facility] [id number] [facility] 2024-11-11 13:30:00 2024-11-11 13:30:00 Outpatient R NATALEE AMEZQUITA NATALEE [facility] [id number] [facility] 2024-11-08 10:45:00 2024-11-08 10:45:00 Outpatient R [facility] [id number] [facility] 2024-11-05 10:30:00 2024-11-05 10:33:34 Outpatient R NATALEE AMEZQUITA NATALEE [facility] [id number] [facility] 2024-11-05 10:30:00 2024-11-05 10:33:34 Nurse Visit Nurse, [facility] Natalee Amezquita Nurse, [facility] BUILDING 1.2.840.114 350.1.13.10 4.2.7.2.686 [id number] 134 [id number] [facility] 2024-11-02 00:00:00 2024-11-02 11:11:24 Telephone Leatha Hoawrd [facility]. 1.2.840.114 350.1.13.10 4.2.7.2.686 [id number] 136 [id number] [facility] 2024-10-21 11:58:00 2024-11-01 16:00:00 Inpatient P MARCELLUS JOE MESULLY RADHA [id number] [facility] 2024-10-21 11:58:00 2024-11-01 16:00:00 Hospital Encounter Natalee Amezquita Luis Diego [facility] 1.840.114 350.1.13.10 4.2.7.2.686 [id number] 132 [id number] [facility] 2024-10-25 10:00:00 2024-10-25 10:00:00 Outpatient R [facility] [id number] [facility] 2024-10-23 18:18:00 2024-10-24 06:45:00 Anesthesia Event Vadim Walker Sharif [facility] 1.2.114 350.1.13.10 4.2.7.2.686 [id number] [facility] 2024-10-21 10:00:00 2024-10-21 11:45:22 Outpatient R NATALEE AMEZQUITA VIEN [facility] [id number] [facility] 2024-10-21 10:00:00 2024-10-21 11:45:22 Routine Visit Room, [facility]quita [facility] 1.84.114 350.1.13.10 4.2.7.2.686 [id number] 134 [id number] [facility] 2024-10-15 00:00:00 2024-10-21 09:53:58 Patient Secure Msg Natalee Amezquita [facility] NAL BUILDING 1.284.114 350.1.13.10 4.2.7.2.686 [id number] 134 [id number] [facility] 2024-10-20 08:52:00 2024-10-20 09:57:00 Outpatient P NATALEE AMEZQUITA VIEN [facility] [id number] [facility] 2024-10-20 08:52:00 2024-10-20 09:57:00 Hospital Encounter Natalee Amezquita [facility] 1.2840.114 350.1.13.10 4.2.7.2.686 [id number] [id number] [facility] 2024-10-20 08:46:40 2024-10-20 08:47:00 Emergency [facility] [id number] [facility] 2024-10-18 18:14:00 2024-10-19 12:05:00 Outpatient X NATALEE AMEZQUITA [facility] RADHA [id number] [facility] 2024-10-18 18:14:00 2024-10-19 12:05:00 Emergency Natalee Amezquita [facility] 1.2.840.114 350.1.13.10 4.2.7.2.686 [id number] [id number] [facility] 2024-10-13 15:45:00 2024-10-13 16:05:29 [facility] [id number] [facility] 2024-10-13 15:45:00 2024-10-13 16:05:29 Routine Visit Natalee Amezquita Nate [facility] PROFESS[facility] NAL BUILDING 1.2.840.114 350.1.13.10 4.2.7.2.686 [id number] 134 [id number] [facility] 2024-09-28 12:45:00 2024-09-28 13:11:06 Outpatient R EUGENIOSHANNA ISABELLA [facility] [id number] [facility] 2024-09-28 12:45:00 2024-09-28 13:11:06 Routine Visit Isabella Cole [facility]ESS[facility] NAL BUILDING 1.2.840.114 350.1.13.10 4.2.7.2.686 [id number] 134 [id number] [facility] 2024-09-14 16:00:00 2024-09-14 16:30:29 Outpatient R NATALEE AMEZQUITA [facility] [id number] [facility] 2024-09-14 16:00:00 2024-09-14 16:30:29 Routine Visit Natalee Amezquita [facility] PROFESSIO NAL BUILDING 1.2.840.114 350.1.13.10 4.2.7.2.686 [id number] 134 [id number] [facility] 2024-09-10 00:00:00 2024-09-10 09:16:13 Case Management Jose RIsabella nieves [facility] BUILDING 1.2.840.114 350.1.13.10 4.2.7.2.686 [id number] 134 [id number] [facility] 2024-09-07 10:15:00 2024-09-07 12:04:43 Outpatient R NATALEE AMEZQUITA VIEN [facility] [id number] [facility] 2024-09-07 10:15:00 2024-09-07 10:30:00 Applications Engineer Manufacturing Visit 2, [facility] Natalee Amezquita 2, Adc Lab [facility] BUILDING 1.2.840.114 350.1.13.10 4.2.7.2.686 [id number] [facility] 2024-08-17 16:00:00 2024-08-17 16:41:11 Outpatient R ISABELLA COLE [facility] [id number] [facility] 2024-08-17 16:00:00 2024-08-17 16:41:11 Routine Visit Shawanda Isabella [facility] BUILDING 1.2.840.114 350.1.13.10 4.2.7.2.686 [id number] 134 [id number] [facility] 2024-08-17 00:00:00 2024-08-17 10:34:[address] [facility] BUILDING 1.2.840.114 350.1.13.10 4.2.7.2.686 [id number] 134 [id number] [facility] 2024-08-06 13:00:00 2024-08-06 14:00:00 Applications Engineer Manufacturing Visit Ultrasound, Willi-Karol Maryan Tavares David [facility] 1..840.114 350.1.13.10 4.2.7.2.686 [id number] [facility] 2024-08-06 13:00:00 2024-08-06 13:00:00 Outpatient P MARYAN TAVARES CHASEY [facility] [id number] [facility] 2024-07-29 00:00:00 2024-08-03 10:14:24 Telephone Natalee Amezquita [facility] 1..840.114 350.1.13.10 4.2.7.2.686 [id number] 134 [id number] [facility] 2024-07-22 16:00:00 2024-07-22 16:30:48 Outpatient R LESLIE SOLITARIO [facility] [id number] [facility] 2024-07-22 16:00:00 2024-07-22 16:30:48 Office Visit Leslie Solitario [facility] 1..840.114 350.1.13.10 4.2.7.2.686 [id number] [facility] 2024-07-20 16:15:00 2024-07-20 16:53:25 Outpatient R NATALEE AMEZQUITA VIEN [facility] [id number] [facility] 2024-07-20 16:15:00 2024-07-20 16:53:25 Routine Visit Natalee Amezquita [facility] 1..840.114 350.1.13.10 4.2.7.2.686 [id number] 134 [id number] [facility] 2024-06-29 00:00:00 2024-06-30 10:17:49 Telephone Isabella Cole [facility] PROFHERMILA NAL BUILDING 1.2.840.114 350.1.13.10 4.2.7.2.686 [id number] 134 [id number] [facility] 2024-06-29 16:00:00 2024-06-29 16:15:00 Applications Engineer Manufacturing Visit 2, [facility] Isabella Cole 2, [facility] 1.2.840.114 350.1.13.10 4.2.7.2.686 [id number] [facility] 2024-06-29 15:15:00 2024-06-29 15:34:04 Outpatient R ISABELLA COLE [facility] [id number] [facility] 2024-06-29 15:15:00 2024-06-29 15:34:04 Routine Visit Isabella Cole [facility] 1.2.840.114 350.1.13.10 4.2.7.2.686 [id number] 134 [id number] [facility] 2024-06-15 00:00:00 2024-06-16 11:40:[address] [facility] BUILDING 1.2.840.114 350.1.13.10 4.2.7.2.686 [id number] 134 [id number] [facility] 2024-06-09 00:00:00 2024-06-09 10:23:13 Telephone Natalee Amezquita [facility] BUILDING 1.2.840.114 350.1.13.10 4.2.7.2.686 [id number] 134 [id number] [facility] 2024-06-01 00:00:00 2024-06-01 17:50:01 Case Management Natalee Amezquita [facility] BUILDING 1.2.840.114 350.1.13.10 4.2.7.2.686 [id number] 134 [id number] [facility] 2024-06-01 00:00:00 2024-06-01 14:20:32 Telephone [facility] BUILD[facility] 1.2.840.114 350.1.13.10 4.2.7.2.686 [id number] 134 [id number] [facility] 2024-05-31 20:26:00 2024-05-31 22:44:00 Emergency X VASUT, BRIAN VASUT, BRIAN [facility] ERT [id number] [facility] 2024-05-31 20:26:00 2024-05-31 22:44:00 Emergency Vasut, Brian J [facility] 1.2.840.114 350.1.13.10 4.2.7.2.686 [id number] [facility] 2024-05-31 00:00:00 2024-05-31 15:18:18 Telephone Natalee Amezquita [facility] BUILDING 1.2.840.114 350.1.13.10 4.2.7.2.686 [id number] 134 [id number] [facility] 2024-05-31 00:00:00 2024-05-31 14:29:43 Case Management Natalee Amezquita [facility] BUILDING 1.2.840.114 350.1.13.10 4.2.7.2.686 [id number] 134 [id number] [facility] 2024-05-27 16:00:00 2024-05-27 16:15:00 Applications Engineer Manufacturing Visit 2, [facility] Natalee Amezquita [facility] BUILDING 1.2.840.114 350.1.13.10 4.2.7.2.686 [id number] [facility] 2024-05-27 16:00:00 2024-05-27 16:00:00 Outpatient R NATALEE AMEZQUITA VIEN [facility] [id number] [facility] 2024-05-27 14:30:00 2024-05-27 15:23:47 Initial Visit Natalee [facility]quita [facility] 1.2.840.114 350.1.13.10 4.2.7.2.686 [id number] 134 [id number] [facility] Results Test Description Test Time Test Comments Results Result Co mments Source [facility] [id number] 18:23:00* Test Item Value Reference Range Interpretation Comme nts POCT PREG (test code = 1605) Negative On board controls acceptable with C Line (test code = 3574) Yes POCT PREG LOT # (test code = 3575) POCT PREG TEST DATE ( test code = 3576) [id number] 20:59:00* Test Item Value Reference Range Interpretation Comme nts POCT PREG (test code = 1605) Negative On board controls acceptable with C Line (test code = 3574) Yes POCT PREG LOT # (test code = 3575) POCT PREG TEST DATE (test code = 3576) NATALIIA (test code = NATALIIA) accurate developme nt and interpretation of all internal controls Lab Interpretation (test code = 15406-4) Normal [facility] [id number] 20:04:00* Test Item Value Reference Range Interpretation Comme nts POCT PREG (test code = 1605) Negative On board controls acceptable with C Line (test code = 3574) Yes POCT PREG LOT # (test code = 3575) POCT PREG TEST DATE ( test code = 3576) [facility] [id number] 00:07:29EXAM: US GALL BLADDER HISTORY: 19 years-old Female; Provided indication: RULE OUT CHOLECYSTITIS . TECHNIQUE: Limited abdominal ultrasound focused on the gallbladder wasperformed. The main portal veinwas evaluated with color Doppler.Target Developer images were obtained for the record. COMPARISON: None FINDINGS: The gallbladder is normal in size. Biliary sludge or small stones are seenwithout wall thickening or pericholecystic fluid. The patient waspremedicated although denied pain to palpation. No biliary ductal dilatation is seen. The common duct is 2 [address] diameter[address] POCT [id number] 23:26:00* Test Item Value Reference Range Interpretation Comme nts POCT PREG (test code = 1605) Negative On board controls acceptable with C Line (test code = 3574) Yes POCT PREG LOT # (test code = 3575) [id number] POCT PREG TEST DATE ( test code = 3576) 12/27/2025 Lab Interpretation (test cod e = 36660-0) Normal [facility] Screen - ONCE [id number] 10:19:00* Test Item Value Reference Range Interpretation Comme nts ABO & RH (test code = 20) O POSITIVE IAT (test code = 1185) Negative [facility]MR Brain wo [id number] 19:55:40MR BRAIN WO CONTRAST HISTORY: Female 19 [...] voids for the major intracranial vessels are unremarkable.[facility] (D) IMMUNE [id number] 18:08:50* Test Item Value Reference Range Interpretation Comme nts RHIG CANDIDATE? (test code = 5188) No- see comment Patient is not a candidate for RhIg- Patient is Rh Positive.Performed at [facility] Laboratory Services - [facility] Blood [address] [place] [id number] Free: [phone] No. [id number] [facility] Metabolic Panel (NA, K, CL, CO2, GLUCOSE, BUN, CREATININE, CA)2024-10-24 18:03:04* Test Item Value Reference Range Interpretation Comme nts NA (test code = 3129620512) 126 mmol/L 135-145 L K (test code = 7988597240) 3.8 mmol/L 3.5-5.0 CL (test code = 5457508162) 104 mmol/L 98-108 CO2 TOTAL (test code = 0108883387) 19 mmol/L 23-31 L AGAP (test code = 4847155634) 3 2-16 BUN (test code = 5535193760) 19 mg/dL 7-23 GLUCOSE (test code = 7013687978) 86 mg/dL 70-110 CREATININE (test code = 2160-0) 0.97 mg/dL 0.50-1.04 CALCIUM (test code = 3955673333) 6.3 mg/dL 8.6-10.6 L eGFR (test code = 47018-3) 86.5 mL/min/1.73m2 CKD-EPI eGFR (2020). Assuming creatinine has been stable day-to-day for at least three months, the eGFR indicates Category G2 (60 - 89 mL/min/1.73 m2) Lab Interpretation (test code = 68886-4) Abnormal [facility] HospitalMagnesium2024-12-29 15:59:02* Test Item Value Reference Range Interpretation Comme nts MAGNESIUM (test code = 7602859797) 6.8 mg/dL 1.7-2.4 H Lab Interpretation (test cod e = 23178-6) Abnormal [facility] HospitalVenous Cord [id number] 12:01:59* Test Item Value Reference Range Interpretation Comme nts VENOUS BASE EXCESS, CORD (te st code = 8425172268) -5.6 mEq/L VENOUS PH, CORD (test code = 0172765538) 7.34 7.25-7.45 VENOUS PC02, CORD (test code = 0172083096) 37 27-49 VENOUS PO2, CORD (test code = 9978399900) 28 17-41 VENOUS BICARBONATE, CORD (te st code = 9225727698) 20 12-[address] [facility] HospitalArterial Cord [id number] 11:59:43* Test Item Value Reference Range Interpretation Comme nts BASE EXCESS, CORD (test code = 4397055451) -6.3 mEq/L AC PH, CORD (BEAKER) (test c ode = 7592401120) 7.31 7.18-7.38 PC02, CORD (test code = 3323480606) 40 32-66 PO2, CORD (test code = 3199067251) 23 10-30 BICARBONATE, CORD (test code = [id number]) 19 17-27 [facility]axial [id number] 11:23:00 Kalani Parker MD ? ? 10/24/2024 ?5:24 AM Central Neuraxial Block Date/Time: 10/24/2024 5:23 AM Performed by: Kalani Parker MDAuthorized by: Caden Cervantes MD ?Patient Location: OBEnd Time: 10/24/2024 5:23 AMReason for Block: OB request, Patient request, Labor analgesia, Surgical anesthesia andPost-op pain managementStaff: ?Anesthesiologist: Caden Cervantes MD ?Resident/RADIO BOARD OPERATOR ANNOUNCER: Kalani Parker MD ?Performed by: resident/CRNAPreanesthetic Checklist: [...] CARLOS saline ?Gu idance with: landmark technique}Epidural/Spinal [place] and/or Catheter: ?Epidural/Spinal Kit: BBraun ?Needle Type: [...] Replaced epidural d/t one side with no levelUnB[facility]iscoCentral Neuraxial [id number] 01:03:00Kalani Parker MD ? ? 10/23/2024 ?7:04 PM Central Neuraxial Block Date/Time: 10/23/2024 7:03 PM Performed by: Kalani Parker MDAuthorized by: Caden Cervantes MD ?Patient Location: OBEnd Time: 10/23/2024 7:03 PMReason for Block: OB request, Patient request, Labor analgesia, Surgical anesthesia and Post-op pain managementStaff: ?Anesthesiologist: Caden Cervantes MD ?Resident/RADIO BOARD OPERATOR ANNOUNCER: Kalani Parker MD ?Performed by: resident/CRNAPreanesthetic Checklist: patient identified, IV checked, risks and benefits explained, monitors and equipment checked, timeout performed, pre-op evaluation, site marked and anesthesia consentProcedure: ?Type of Neuraxial: Epidural ?Epidural Description: 1st attempt? Sterility Prep cap, drape, gloves, hand hygiene and mask ?Patient Position: sitting ?Prep: Betadine and patient draped ? ?Monitoring: heart rate, continuous pulse ox, heart rate / toco and NIBP ?Location: lumbar (1-5) ?Lumbar: L3-L4 ?Approach: midline ? ?Technique: catheter and CARLOS saline ?Guidance with: landmark technique}Epidural/Spinal [place] and/or Catheter: ?Epidural/Spinal Kit: Fiorun ?Needle Type: Tuohy ?Needle Gauge: 17 G ?Needle Length: 3.5 in (8.89 cm) ?Needle Insertion Depth: 6 ?Catheter Type: multiport ? ?Catheter Size: 19 G ? ?Catheter at Skin Depth: 11 ?Number of Attempts: 1 ?Test Dose: negative and lidocaine 1.5% with epinephrine 1-to-200,000 ? ?Dose: 3 cc ? ?Catheter Securement Method: surgical tape and TegadermAssessment: ?Block Outcome: a full evaluation is pendi ng, patient comfortable and patient tolerated procedure well ? ?Procedure Assessment: patient tolerated procedure well with no complicationsNotes: ? Patient identified; pre-procedure verification.Patient prepped and draped in standard sterile fashion using betadine x 3Subcutaneous infiltration with1% Lidocaine CARLOS at 6 cm; catheter secured at 11 cm with mastisol, tegaderm x2 and 3-inch clear tape.Aspiration test negative x 3Test dose negativePatient tolerated procedure well with no immediate complications Epidural expectations; PCEA explained and fall precautions given.[facility] Syphilis IgG/[id number] 14:51:39* Test Item Value Reference Range Interpretation Comme [facility] Syphilis IgG/IgM (test code = 26127-0) Nonreactive Nonreactive Syphilis Serology Interpretation (test code = 90074-2) No serologic evidence of syphilis. If recent exposure is suspected, retest in 2 to 4 weeks. NATALIIA (test code = NATALIIA) ? [facility] HospitalHIV 1/2 Ag-Ab with [id number] 05:04:12* Test Item Value Reference Range Interpretation Comme nts HIV Semi-quantitative (test code = 38951-1) 0.14 Negative NATALIIA (test code = NATALIIA) Non-reactive for HIV-1 antigen and HIV-1/HIV-2 antibodies. ?No laboratory evidence of HIV infection. ?Repeat in 2-4 weeks if acute HIV infection is suspected. [facility] HospitalHepatitis B Surface [id number] 04:53:53 * Test Item Value Reference Range Interpretation Comme nts HBsAg Semi-Quantitative (salomon t code = 5195-3) 0.[address] [facility] HospitalType and Screen - ONCE [id number] 03:48:00* Test Item Value Reference Range Interpretation Comme nts ABO & RH (test code = 20) O POSITIVE IAT (test code = 1185) Negative [facility] biophysical [id number] 19:34:15US PELVIS > 14 WEEKS, US BIOPHYSICAL PROFILETRANSABDOMINAL/TRANSVAGINAL PELVIC ULTRASOUND, 2ND TRIMESTER HISTORY: 19 years-old; Female; Growth per MD Amezquita COMPARISON: NoneTECHNIQUE: The transvaginal exam was explained to the patient in advanceand a actuary was presentin the room.Gestational age: 36 weeks [...] volume: 2.2 cm. Only one pocket identified. [facility] Pelvis > 14 [id number] 19:34:15US PELVIS > 14 WEEKS, US BIOPHYSICAL PROFILETRANSABDOMINAL/TRANSVAGINAL PELVIC ULTRASOUND, 2ND TRIMESTER HISTORY: 19 years-old; Female; Growth per MD Amezquita COMPARISON: NoneTECHNIQUE: The transvaginal exam was explained to the patient in advanceand a actuary was presentin the room.Gestational age: 36 weeks [...] volume: 2.2 cm. Only one pocket identified. [facility] Urinalysis w/o Specific [id number] 21:48:00* Test Item Value Reference Range Interpretation [...] = 3257) n/a Negative - Negati ve [facility] Urinalysis w/o Specific [id number] 18:56:00* Test Item Value Reference Range Interpretation [...] ve Lab Interpretation (test cod e = 24379-5) Normal [facility] Urinalysis w/o Specific [id number] 22:09:00* Test Item Value Reference Range Interpretation [...] = 3257) n/a Negative - Negati ve [facility] HospitalDME/SUPPLY [id number] 14:15:47 Ordered by an unspecified provider.[facility] Urinalysis w/o Specific [id number] 21:15:00* Test Item Value Reference Range Interpretation Comme nts POCT PH U (test code = 3254) n.a 5-8 POCT U LEUK EST (test code = 3263) n..a Negative - Negative POCT U NIT (test code = 3262) n.a Negative - Negati ve POCT U PROT (test code = 3259) trace Negative - Negat dina POCT U GLU (test code = 3256) negative Negative - Negati ve POCT U KETONE (test code = 3258) n.a Negative - Neg ative POCT U BLD (test code = 3257) n.a Negative - Negati ve [facility] HospitalPOCT Urinalysis w/o Specific [id number] 21:20:00* Test Item Value Reference Range Interpretation [...] = 3257) n/a Negative - Negati ve [facility] HospitalPOSD Urinalysis w/o Specific [id number] 20:15:00* Test Item Value Reference Range Interpretation [...] = 3257) n.a Negative - Negati ve [facility] HospitalSCANNED LAB [id number] 16:13:06Ordered by an unspecified provider.[facility] HospitalSC[facility] LAB RESULTS 2024-06-10 16:13:05Ordered by an unspecified provider.[facility] HospitalPOCT [id number] 19:44:00* Test Item Value Reference Range Interpretation Comme nts POCT PREG (test code = 1605) Positive On board controls acceptable with C Line (test code = 3574) Yes POCT PREG LOT # (test code = 3575) POCT PREG TEST DATE ( test code = 3576) [facility] Urinalysis w/o Specific [id number] 19:41:00* Test Item Value Reference Range Interpretation [...] = 3257) n/a Negative - Negati ve [facility] Consult Notes Date/Time Note Provider Source 2024-10-29 12:36:39 Department of Ophthalmology and Visual Services Consult Note Bere Obregon 2005 [id number] Date of Service: 10/29/2024 12:36 Windmill Mechanic: Tucker Delcid MD Reason for Consult: " patient s/p vaginal delivery with PreEwSF with blurry vision " HPI Bere Obregon is a 19 year old female [...] days. 10/26/24 11/25/24 Yes Ranjan Wren MD [id number] fum-folic () 27 mg iron- 1 mg folic tablet Take 1 tablet by mouth in the morning. 10/26/24 Yes Ranjan Wren MD Allergies Allergies Allergen Reactions First Aid Ointment [Lgspx-Vwobe-Bwjpcrh-Pramoxine] Rash Review of Systems Negative except above [...] stable compared to 10/28/24 OD OS Disc [place], sharp [place]ou[place], sharp C/D Ratio 0.3 0.3 Macula Macular [...] to the patient in advance and a actuary was present in the room. Gestational age: [...] to the patient in advance and a actuary was present in the room. Gestational age: [...] and due to no retina coverage at [facility] currently or for the next [...] patient chooses to pursue outpatient follow with [facility], please refer to Dr Fatuma Baig, neuro-ophthalmology within 2-4 weeks of discharge - Ophthalmology will continue to follow daily Seen and discussed Dr. Barrera, faculty. Tucker Delcid MD Ophthalmology and Visual Sciences, PGY-2 O VISUAL TECH Associated attestation - Carlni Barrera MD - 11/01/2024 9:31 AM AUDIO VISUAL TECH I discussed the case and examined the patient (on 10/29/24) with Dr. Delcid and agree with her findings and assessment and plan. Carlin Barrera MD Professor Dept. of Ophthalmology & Visual Sciences [facility] OPHTHALMOLOGY [facility] - Health 2024-10-28 08:22:23 Department of Ophthalmology and Visual Services Consult Note Bere Obregon 2005 [id number] Date of Service: 10/28/2024 08:22 Windmill Mechanic: Tucker Delcid MD Reason for Consult: " patient s/p vaginal delivery with PreEwSF with blurry vision " HPI Bere Obregon is a 19 year old female [...] days. 10/26/24 11/25/24 Yes Ranjan Wren MD [id number] fum-folic () 27 mg iron- 1 mg folic tablet Take 1 tablet by mouth in the morning. 10/26/24 Yes Ranjan Wren MD Allergies Allergies Allergen Reactions First Aid Ointment [Akelg-Luyfs-Pftlcyh-Pramoxine] Rash Review of Systems Negative except above [...] exam verified by faculty OD OS Disc [place], sharp [place]ou[place], sharp C/D Ratio 0.3 0.3 Macula Macular [...] to the patient in advance and a actuary was present in the room. Gestational age: [...] to the patient in advance and a actuary was present in the room. Gestational age: [...] and due to no retina coverage at [facility] currently or for the next [...] patient chooses to pursue outpatient follow with [facility], please refer to Dr Fatuma Baig, neuro-ophthalmology within 2-4 weeks of discharge Seen and discussed Dr. Baig, faculty. Tucker Delcid MD Ophthalmology and Visual Sciences, PGY-2 O VISUAL TECH Associated attestation - Fatuma Baig MD - 10/29/2024 11:20 AM AUDIO VISUAL TECH I have reviewed and personally examined this [...] the bilaterality and severity. Fatuma Baig MD Leather Scrubber [facility] Department of Ophthalmology [facility] Health 2024-10-26 08:01:03 Associated Order(s): CONSULT LABORER BRUSH CLEARING-ADULT Images from the original note were not included. Reason for consult - please give recommendation or opinion on: edinburgh scale score of 9 CARE MANAGEMENT Care Coordinators/Social Workers/CM Specialists/Utilization Review/Patient Placement & Transfer Center 10/26/2024 8:01 AM Field Supervisor Seed Production Note Mental Health concerns addressed, NICU SFA completed. Please see Evelyn Stahl LMSW Field Supervisor Seed Production Progress Note on 10/25/24 @1508. Evelyn Stahl LMSW [facility] Field Supervisor Seed Production Care Management O: [phone] F: [phone] [email or web address] Health History and Physical Notes Date/Time Note Provider Source 2024-10-22 16:54:32 TRIAGE/L&D HISTORY & PHYSICAL IDENTIFYING DATA Bere Obregon is 19 year old, /White, 33w6d, female with KIAH 12/04/2024, by Last Menstrual Period. : 2005 Primary Care Physician: Natalee Amezquita CHIEF COMPLAINT Transfer from [place] due to PreEwSF HISTORY OF PRESENT ILLNESS Bere Obregon is a 19 year old at 33w6d who presents as a transfer due to newly diagnosed PreEwSF based on Cr 1.11 here for higher level of care. Patient denies vaginal bleeding, denies leakage of fluid, denies contractions. She reports a mild IED that she thinks is due to the [...] evening. 60 tablet 2 Past Month vit no.774-kmxh-ggzym ( VITAMIN) Take 1 tablet by mouth [...] AM GTT Lab Results Component Value Date/Time [id number] 135 09/07/2024 11:47 AM CBC Lab Results [...] current . Negative screening. ASSESSMENT AND PLAN Bere Obregon is a 19 year old at 33w6d by d/u(12) who presents as a transfer from [facility] for higher level of care due to PreEwSF. Pre-eclampsia with severe features - Ruled in 10/22 based on BP criteria and Cr 1.11 - Transferred from [place] for higher level of care due to [...] plan: Undecided, but declines for now - [place] [facility] Fetus - Presentation on admission: cephalic - anterior placenta - EFW: 2316 g, 50%tile based on radiology US 10/21 - EFW 2349 g, 50%tile on BSUS today. KELLY 4 cm. - FHT reactive and reassuring - Normal anatomy scan D/w Dr. Carlos Enrique Armas MD O VISUAL TECH Associated attestation - Haleigh Perdue MD - 10/23/2024 8:25 AM AUDIO VISUAL TECH I was L&D faculty on 10/22/2024 and agree with H&P below. Briefly, patient is a 19 year old at 33w6d who presented for severe pre-eclampsia. Admit for delivery at 34 weeks I discussed the plan of care with the residents. Haleigh Montes MD [facility] - [facility] 2024-10-21 15:30:00 TRIAGE HISTORY & PHYSICAL IDENTIFYING DATA Bere Obregon is 19 year old, /White, 33w5d, female with KIAH 12/04/2024, by Last Menstrual Period. : 2005 Primary Care Physician: Natalee Amezquita CHIEF COMPLAINT NRNST HISTORY OF PRESENT ILLNESS Bere Obregon is a 19 year old female [...] evening. 60 tablet 2 Past Month vit no.631-vvvk-iozfo ( VITAMIN) Take 1 tablet by mouth [...] no pooling, valsalva and nitrizine negative. SVE: fingertip//-3 REVIEW OF LABORATORY, PATHOLOGY, AND RADIOLOGY DATA [...] single or unspecified fetus ASSESSMENT AND PLAN Bere Obregon is a 19 year old at 33w5d who presents from clinic due to NRNST. NRNST Oligohydramnios - NRNST in clinic today. - Reports good FM. Denies vaginal bleeding, LOF, or regular contractions. Denies symptoms of PreE. - FHT reactive/reassuring for gestational age. - Cougar: small ctx irregular every 4-10+ min - [...] continuous monitoring and IVF. Luma Abreu MSN, VETERINARY PHYSIOLOGIST, MANAGER CONTINUOUS IMPROVEMENT-C Informed consent discussed with the patient, including: [...] receiving the proposed care, treatment, and services. O VISUAL TECH Associated attestation - Natalee Amezquita MD - 10/21/2024 5:00 PM AUDIO VISUAL TECH Agreed with CLIENT PARTNER: strip reactive and reassuring. BPP 6/8, -2 for breathing. Only one pocket of fluid noted, measured 2.2 cm. PPROM ruled out at this time. Will keep overnight for continuous EFM and IV/PO hydration. Will repeat speculum exam in am to re-evaluate for PPROM. Will repeat BPP tomorrow. Natalee Amezquita MD 10/21/2024 5:00 PM [facility] 2024-10-19 05:38:33 TRIAGE HISTORY & PHYSICAL IDENTIFYING DATA Bere Obregon is 19 year old, /White, 33w3d, female with KIAH 12/04/2024, by Last Menstrual Period. : 2005 Primary Care Physician: Natalee Amezquita CHIEF COMPLAINT N/V/abdominal pain HISTORY OF PRESENT ILLNESS Bere Obregon is a 19 year old female [...] the evening. 60 tablet 2 Taking vit no.627-fvnf-btdan ( VITAMIN) Take 1 tablet by mouth [...] current . Negative screening. ASSESSMENT AND PLAN Bere Obregon is a 19 year old at [...] continues to remain stable Natalee Amezquita MD [facility] Procedure Notes Date/Time Note Provider Source 2024-10-24 05:23:46 Associated Order(s): Central Neuraxial Block Central Neuraxial Block Date/Time: 10/24/2024 5:23 AM Performed by: Kalani Parker MD Authorized by: Caden Cervantes MD Patient Location: OB End Time: 10/24/2024 5:23 AM Reason for Block: OB request, Patient request, Labor analgesia, Surgical anesthesia and Post-op pain management Staff: Anesthesiologist: Caden Cervantes MD Resident/RADIO BOARD OPERATOR ANNOUNCER: Kalani Parker MD Performed by: resident/RADIO BOARD OPERATOR ANNOUNCER Preanesthetic Checklist: patient identified, IV checked, risks [...] CARLOS saline Guidance with: landmark technique} Epidural/Spinal [place] and/or Catheter: Epidural/Spinal Kit: Caitlin Needle Type: [...] epidural d/t one side with no level [facility] ANESTHESIOLOGY [facility] 2024-10-23 19:03:56 Associated Order(s): Central Neuraxial Block Central Neuraxial Block Date/Time: 10/23/2024 7:03 PM Performed by: Kalani Parker MD Authorized by: Caden Cervantes MD Patient Location: OB End Time: 10/23/2024 7:03 PM Reason for Block: OB request, Patient request, Labor analgesia, Surgical anesthesia and Post-op pain management Staff: Anesthesiologist: Caden Cervantes MD Resident/RADIO BOARD OPERATOR ANNOUNCER: Kalani Parker MD Performed by: resident/RADIO BOARD OPERATOR ANNOUNCER Preanesthetic Checklist: patient identified, IV checked, risks [...] CARLOS saline Guidance with: landmark technique} Epidural/Spinal [place] and/or Catheter: Epidural/Spinal Kit: Caitlin Needle Type: [...] expectations; PCEA explained and fall precautions given. O VISUAL TECH ANESTHESIOLOGY [facility] 2024-10-23 02:49:41 Bere Obregon is a 19 year old female 34w0d Nuñez Insertion: Insertion date and time: 10/23/24 2:45 AM Nuñze catheter inserted through cervix in sterile fashion using sterile technique and inflated with 60 cc sterile saline. Nuñez bulb firmly in place inside internal os. Catheter taped to patient leg under traction. Patient tolerated procedure well. Please use the table below for: SVE /-3 CERVIX: Consistency : firm; Position: post, Station: [...] to 0 +1, +2 Demetrio Abad MD STEEL RIGGER Resident Physician 10/23/24 2:49 AM [facility] Notes Date/Time Note Provider Source 2025-07-28 13:37:55 Please see Syndiantt message. PAM OLIVAREZ RN 07/28/2025 1:38 PM Pam Olivarez RN [facility] 2025-07-28 13:18:58 Copied from [facility] #[id number]. Topic: Clinical - Medical Advice >> Jul 28, 2025 1:16 PM Patient Screen Printing Cloth Spreader wrote: Bere Obregon is a 20 year old female Patient is calling to discuss test result and possible medication. Ana M Lawson [facility] 2025-07-22 14:02:19 Duplicate Pj Thompson RN 07/22/2025 2:02 PM Pj Thompson RN [facility] 2025-07-22 13:14:44 Copied from [facility] #[id number]. Topic: Clinical - Medical Advice >> Jul 22, 2025 1:13 PM Patient Screen Printing Cloth Spreader wrote: Bere Obregon 20 year old female Patient stated that she odor with discharge and vaginal irritation in one area. Patient stated that she feels like she has been exposed to an std. Please assist and thank you Rory Ballard [facility] 2025-01-25 09:44:11 Received refill request for Labetalol 300mg. Per last OV 01/20/25- Dr. Alfredo cruz Labetalol. Refill was denied. PAM OLIVAREZ RN 01/25/2025 9:44 AM Pam Olivarez RN [facility] 2024-11-24 19:36:10 Pt given printed and verbal [...] with steady gait, in no apparent distress. O VISUAL TECH Deysi Tripp RN [facility] 2024-11-24 17:07:15 Bere Obregon is a 19 year old female c/o " I have gallstones and I think it's flaring up x 1-2 hours" states took a tylenol and it went away and now came back , no emesis, no fever, ate motta this morning and ate [employer] for lunch with coffee Delivered baby 10/24/24 vaginal , states had Pres syndrome RICK Young RN [facility] 2024-11-18 16:15:41 Returned patients call. Patient advised of Dr Amezquita's recommendation: patient to continue labetalol 300 mg 3 times daily and discontinue hydrochlorothiazide Patient verbalized understanding. Pj Thompson RN 11/18/2024 4:16 PM RICK Thompson RN [facility] 2024-11-18 15:19:32 Bere Obregon is a 19 year old female pt called asking what HBP medication she was suppose to stop taking. Would like a call back today please. RX listed below Labetalol Hydrochlorothiazide RICK Jasso [facility] 2024-11-02 11:10:16 Images from the original note were not included. Per Staff Message : Tucker Delcid MD P Ophth Pss Please schedule for 1 week retina follow up at the patient's preferred location. Thank you. Tucker Delcid MD I called patient, I left a voicemail message asking patient to call us back to schedule as requested above. RICK Duron [facility] 2024-11-01 14:22:13 Problem: Falls, Risk of Goal: Absence of falls 11/01/20241421 by Lynnette Hinds RN Outcome: Resolved 11/01/2024838 by Lynnette Hinds RN Outcome: Progressing as expected Problem: Seizures, [...] Outcome: Progressing as expected RICK Hinds RN [facility] 2024-11-01 08:40:28 Problem: Falls, Risk of Goal: [...] symptoms of preeclampsia Outcome: Progressing as expected [facility] 2024-10-31 20:19:24 Problem: Complications of preeclampsia/eclampsia (risk or actual) Goal: Absence of seizure activity Reactivated Goal: Absence of signs and symptoms of preeclampsia Reactivated RICK Dela Cruz RN [facility] 2024-10-31 20:18:35 Problem: Falls, Risk of Goal: [...] Goal: Effective breast-feeding Outcome: Progressing as expected [facility] 2024-10-31 18:55:46 Problem: Falls, Risk of Goal: [...] Outcome: Progressing as expected RICK Marquez RN [facility] 2024-10-31 12:02:02 Problem: Falls, Risk of Goal: [...] Goal: Effective breast-feeding Outcome: Progressing as expected [facility] 2024-10-31 00:53:54 Problem: Falls, Risk [...] Goal: Effective breast-feeding Outcome: Progressing as expected RICK Win RN [facility] 2024-10-30 00:02:02 Problem: Falls, Risk of Goal: [...] Goal: Mood stable Outcome: Progressing as expected [facility] 2024-10-29 11:05:35 Problem: Falls, Risk of Goal: Absence of falls Outcome: Progressing as expected Problem: Seizures, Risk of / or Actual Goal: Absence of injury related to seizure activity Outcome: Progressing as expected Goal: Absence of seizure activity Outcome: Progressing as expected [facility] 2024-10-28 21:25:05 Problem: Falls, Risk of Goal: [...] Goal: Mood stable Outcome: Progressing as expected RICK Stafford RN [facility] 2024-10-28 12:30:00 Images from the original note [...] Other Engorged Literature Resources Education Pump frequency;Lactogenesis Rolling Mill Plugger Observation Pumping No mother states she wanted [...] Follow-up Liu Gutierrez RNC-MN, IBCLC Pager - [phone] O VISUAL TECH Maryann Gutierrez RN [facility] 2024-10-28 03:29:16 Problem: Falls, Risk of Goal: Absence of falls 10/28/2024328 by Iman Zaragoza RN Outcome: Progressing as expected 10/28/2024328 by Iman Zaragoza RN Outcome: Progressing as expected Problem: Seizures, Risk of / or Actual Goal: Absence of injury related to seizure activity 10/28/2024328 by Iman Zaragoza, CLARENCE Outcome: Progressing as expected 10/28/2024328 by Iman Zaragoza RN Outcome: Progressing as expected Goal: Absence of seizure activity 10/28/2024328 by Iman Zaragoza RN Outcome: Progressing as expected 10/28/2024328 by Iman Zaragoza RN Outcome: Progressing as expected Goal: Successful induction of monitored seizure activity (Epilepsy Monitoring Unit - EMU) 10/28/2024328 by Imna Zaragoza RN Outcome: Progressing as expected 10/28/2024328 by Iman Zaragoza RN Outcome: Progressing as expected Problem: Discharge Planning - Goal: Adequate for discharge 10/28/2024328 by Iman Zaragoza RN Outcome: Progressing as expected 10/28/2024328 by Iman Zaragoza RN Outcome: Progressing as expected Goal: Mood stable 10/28/2024328 by Iman Zaragoza RN Outcome: Progressing as expected 10/28/2024328 by Iman Zaragoza RN Outcome: Progressing as expected O VISUAL TECH Iman Zaragoza RN [facility] 2024-10-27 18:26:38 Problem: Falls, Risk of Goal: Absence of falls Outcome: Progressing as expected Problem: Seizures, Risk of / or Actual Goal: Absence of injury related to seizure activity Outcome: Progressing as expected Goal: Absence of seizure activity Outcome: Progressing as expected RICK Atkins RN [facility] 2024-10-26 23:31:51 Problem: Falls, Risk of Goal: [...] Goal: Mood stable Outcome: Progressing as expected RICK Azevedo RN [facility] 2024-10-26 18:35:34 Problem: Falls, Risk of Goal: [...] as expected Goal: Absence of seizure activity 10/26/2024 1835 by Ned Atkins RN Outcome: Progressing as expected 10/26/2024 183 by Ned Atkins RN Outcome: Progressing as expected Goal: Successful induction of monitored seizure activity (Epilepsy Monitoring Unit - EMU) 10/26/2024 183 by Ned Atkins RN Outcome: [...] Ned Atkins RN Outcome: Progressing as expected [facility] 2024-10-26 18:32:34 Problem: Falls, Risk of Goal: [...] Goal: Mood stable Outcome: Progressing as expected [facility] 2024-10-25 19:41:47 Problem: Falls, Risk of Goal: [...] Goal: Mood stable Outcome: Progressing as expected O VISUAL TECH Cameron Brasher RN [facility] 2024-10-25 10:45:00 Images from the original note [...] cpap Date of 10/24/24 Time of 0533 Infant location NICU Breast Assessment Breast Assessment Initial [...] parts;Lactogenesis;How to obtain pump for after discharge [employer] Observation Pumping Yes set mom up to [...] SERVICES Consult Liu ORTIZ-MN, IBCLC Pager - [phone] O VISUAL TECH [facility] 2024-10-25 10:25:12 Problem: Falls, Risk of Goal: Absence of falls Outcome: Progressing as expected Problem: Seizures, Risk of / or Actual Goal: Absence of injury related to seizure activity Outcome: Progressing as expected Goal: Absence of seizure activity Outcome: Progressing as expected [facility] 2024-10-25 05:34:59 Problem: Falls, Risk of Goal: [...] Goal: Mood stable Outcome: Progressing as expected [facility] 2024-10-24 20:54:46 Problem: Discharge Planning - Antepartum Goal: Absence of seizure activity Outcome: Resolved Goal: Adequate for discharge Outcome: Resolved Goal: Blood pressure within specified parameters Outcome: Resolved [facility] 2024-10-24 16:45:00 Images from the original note [...] spoke with Mom about feeding plan for ; Mom states unsure of feeding plan and is not feeling well (on Magnesium Sulfate IV). Mom was given heart to heart cloths; explained Services would follow up later when feeling better. Nayeli Fernandez RN, BSN, IBCLC [facility] Nayeli Fernandez RN [facility] 2024-10-24 15:30:11 Patient: Bere Obregon Procedure Summary Date: 10/23/24 Room / [...] acceptable Respiratory status: acceptable Hydration status: acceptable [facility] AN-ANESTHESIOLOGY ANESTHESIOLOGIST [facility] 2024-10-24 08:23:16 DELIVERY BY SPONTANEOUS VAGINAL DELIVERY [...] shoulder and body. After the delivery of , bulb suction was performed from ororpharynx and nostril with removal of clear amniotic fluid. A male was delivered. 30 second delay in cord clamping was performed. The umbilical cord was then double clamped, cut and the infant was handed off the field to the [...] Minute Totals: 8 9 Dayana Beckham MD O VISUAL TECH Associated attestation - Annabelle Loja MD - 10/24/2024 9:22 AM AUDIO VISUAL TECH I was present for the delivery on 10/24/2024. Delivery of viable male infant in the cephalic position with APGARs 8/[address] Beckham's note for additional details. Annabelle Loja MD Anesthesia Critical Care Medicine Fellow (PGY-5) Maternal- Medicine Fellow (PGY-6), OB Faculty OBSTETRICS & GYNECOLOGY [facility] 2024-10-24 07:32:19 Problem: Falls, Risk of Goal: [...] Unit - EMU) Outcome: Progressing as expected O VISUAL TECH Mariza Olson RN [facility] 2024-10-24 02:52:38 Intrapartum Progress Note 10/24/2024 2:52 [...] 5 / 75 % / -3 Assessment/Plan: Bere Obregon is a 19 year old at 34w1d OB Assessment: IOL, PreEwSF OB Plan: s/p FB, Pit@1545, Mag Additional Comments/Detail: Pt c/o of pain and pressure. will page anesthesia Ripening Agent: Oxytocin Iris Tejada MD [facility] 2024-10-24 02:42:09 Problem: Falls, Risk of Goal: [...] in pain sensation Outcome: Progressing as expected O VISUAL TECH Marjorie Arreola RN [facility] 2024-10-23 22:25:00 Intrapartum Progress Note 10/23/2024 10:25 [...] movement: Yes Mode: EFM Uterine Activity: Mode: Cougar Contractions (number / 10 minute): 3-4 Contraction duration (seconds): 60-70 Contraction quality: Mild, Palpation Resting tone: Soft, Palpation Membrane Status Membrane status: Artificial Cervical Exam 4 / 50 % / -3 Assessment/Plan: Bere Obregon is a 19 year old at 34w0d OB Assessment: IOL, PreEwSF OB Plan: s/p FB, Pit@1545, Mag Additional Comments/Detail: AROM moderate clear fluid, internals placed due to 20 of pit, will reassess. Ripening Agent: Oxytocin Iris Tejada MD [facility] 2024-10-23 20:20:34 Intrapartum Progress Note 10/23/2024 8:20 [...] movement: Yes Mode: EFM Uterine Activity: Mode: Cougar Contractions (number / 10 minute): 3 Contraction duration (seconds): 60-70 Contraction quality: Mild, Palpation Resting tone: Soft, Palpation Membrane Status Membrane status: Intact Cervical Exam 4 / 50 % / Ballotable Assessment/Plan: Bere Obregon is a 19 year old at 34w0d OB Assessment: IOL, PreEwSF OB Plan: s/p FB, Pit@1545, [facility] Additional Comments/Detail: Will reassess for AROM, pt not pressuring epidural button, uncomfortable with check. Ripening Agent: Oxytocin Iris Tejada MD [facility] 2024-10-23 18:04:41 Name/ MRN / Age / Gender: Bere Obregon, [id number] 19 year old female BMI: Estimated body [...] (physical exam) Anesthesia Preop: Chart Review and Ewiz-jw-Aalg APAC Communication: 19 year old female at 34w0d [...] Endo/Other ROS Comments: No results found for: "[id number]" No results found for: "HGBA1C" Other STEEL RIGGER Comments: 19 year old female at 34w0d requesting central neuraxial anesthesia ASSESSMENT AND PLAN Bere Obregon is a 19 year old at 33w6d by d/u() who presents as a transfer from [facility] for higher level of care due to PreEwSF. Pre-eclampsia with severe features - Ruled in 10/22 based on BP criteria and Cr 1.11 - Transferred from [place] for higher level of care due to [...] plan: Undecided, but declines for now - [facility] Fetus - Presentation on admission: cephalic - [...] to surgery. Hold on DOS. Phentermine: Alert [facility] anesthesiologist SGLT2 Inhibitors: "gliflozins" to be held [...] Epidural Anesthesia plan discussed with: patient or customer contact representative Post-Operative Analgesia: Recovery Plan: LDR Additional comments: [facility] AN-ANESTHESIOLOGY ANESTHESIOLOGIST [facility] 2024-10-23 16:53:44 Problem: Falls, Risk of Goal: [...] Unit - EMU) Outcome: Progressing as expected O VISUAL TECH [facility] 2024-10-22 22:13:43 Problem: Discharge Planning - Antepartum [...] Unit - EMU) Outcome: Progressing as expected [facility] Mis Ruvalcaba RN [facility] 2024-10-22 07:30:00 Problem: Falls, Risk of Goal: Absence of falls Outcome: Progressing as expected Problem: Discharge Planning - Antepartum Goal: Absence of seizure activity Outcome: Progressing as expected Goal: Adequate for discharge Outcome: Progressing as expected Goal: Blood pressure within specified parameters Outcome: Progressing as expected [facility] Joceline Carbone RN [facility] 2024-10-21 10:00:00 Age: [age] year old GA: 33w5d Here for NST only Preeclampsia without severe features - NST nonreactive: Baseline 135, minimal variability, positive acceleration, no deceleration -->> to labor and delivery for prolonged monitoring, BPP, and growth scan [facility] 2024-10-21 09:53:47 Patient seen in L&D. Pj Thompson RN 10/21/2024 9:53 AM O VISUAL TECH Pj Thompson RN [facility] 2024-10-18 18:10:22 Patient arrived ambulatory c/o abdominal pain and vomiting that started today. 33 weeks pregannt, G1, obgyshruthi ann. Gave report to CLARENCE Cruz [facility] Joanna Archuleta RN [facility] 2024-10-13 15:45:00 Age: [age] year old GA: [...] Follow-up in 2 weeks for visit with CLIENT PARTNER Follow-up in 4 weeks for visit with Amezquita [facility] 2024-09-28 12:45:00 Age: [age] year old GA: 30w3d ASSESSMENT: Bere Obregon is a 19 year old at 30w3d who presents for routine visit. 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 Normal in third trimester 2. 30 weeks gestation of - POCT Urinalysis w/o Specific [place]- negative glucose and protein 3. Herpes simplex [...] with Dr. Amezquita in 2 weeks or jackeline Cole DNP, ALEJANDRO-BC 09/28/2024 at 1:02 PM [facility] 2024-09-14 16:00:00 Age: [age] year old GA: 28w3d Doing well without concerns today Received record from [facility] 07/21/2024: Ultrasound of the abdomen -cholelithiasis with [...] bleeding) and also Kick Counts. Also dicussed [place], pelvic and lower back pains- expectations and differenced with S/S of PTL She plans to follow fed BC options reviewed- opted for undecided Cradle Placer: Undecided Encourage patient to bring in wishes if she has any. -Follow-up in 2 weeks for visit with CLIENT PARTNER -Follow-up in 4 weeks for visit with Amezquita [facility] 2024-09-07 10:15:00 Loaded pt with 50G Glucola at 1038. Pt finished Glucola at 1041 with no issues. Draw time 1141. [facility] Sherine Jensen [facility] 2024-09-07 10:15:00 Images from the original note were not included. Venipuncture collection performed by clean technique on the left anticubitus. Total of 1 attempts were made. Slight pressure and a bandage/dressing were applied to the site(s). The patient experienced no complications. The following specimens were processed according to instructions and sent to [facility] laboratories per lab order on 09/07/2024 : LT BLUE SST 2 RED 1 LAV 2 PPT DK GREEN (LiHep) DK GREEN (SodH) HARPER DK BLUE (K2) DK BLUE (S) ACD Blood Culture NIPT/NTD Patient has been identified by and was provided with cup, antiseptic towelette, and clean catch instructions. 1 urine specimen(s) sent. Unpreserved Urine Culture 1 Aptima tube Other urine [facility] 2024-08-17 16:00:00 Age: [age] year old GA: 24w3d ASSESSMENT: Bere Obregon is a 19 year old at [...] Bank; Future - POCT Urinalysis w/o Specific [place]- trace protein and negative glucose 3. Herpes [...] 4 weeks or prn Isabella Cole DNP, VETERINARY PHYSIOLOGIST- 08/17/2024 at 4:38 PM [facility] 2024-08-17 10:34:12 Recieved fax from [employer]. Signed and faxed back. Title 19- BP. PAM OLIVAREZ RN 08/17/2024 10:34 AM Pam Olivarez RN [facility] 2024-08-03 10:12:43 Received record from [facility] 07/21/2024: Ultrasound of the abdomen -cholelithiasis with mild gallbladder wall thickening 07/21/2024: Single viable IUP corresponding to 20 weeks and 3 days, anterior placenta, closed cervix Natalee Amezquita MD 08/03/2024 10:13 AM T [facility] 2024-07-29 09:00:40 Medical records from [facility] received via fax, placed on doctors desk. Mar Ayers [facility] 2024-07-20 16:15:00 Age: [age] year old GA: [...] that she was diagnosed with gallstones at [facility] ER on 06/17/2024. Referral to general surgery [...] -Follow-up in 4 weeks for visit with CLIENT PARTNER -Follow-up in 8 weeks for visit with Amezquita [facility] -LMP 02/28/2024; [facility] 12/04/2024 -Ultrasound on 04/21/2024: 8 weeks and 0 days, [facility] 12/01/2024. Single viable IUP with heart tone. [facility] 2024-06-30 10:10:35 Attempted to contact patient. No answer, VM left. Pj Thompson RN 06/30/2024 10:11 AM Pj Thompson RN [facility] 2024-06-29 16:59:25 Bere Obregon is a 19 year old female Pt request a call back regarding today's visit. [phone] (home) Eris Garcia [facility] 2024-06-29 16:00:00 Images from the original note were not included. Venipuncture collection performed by clean technique on the left anticubitus. Total of 1 attempts were made. Slight pressure and a bandage/dressing were applied to the site(s). The patient experienced no complications. The following specimens were processed according to instructions and sent to [facility] laboratories per lab order on 06/29/2024: LT BLUE SST 1 RED LAV PPT DK GREEN (LiHep) DK GREEN (SodH) HARPER DK BLUE (K2) DK BLUE (S) ACD Blood Culture NIPT/NTD [facility] 2024-06-29 15:15:00 Age: [age] year old GA: 17w3d ASSESSMENT: Bere Obregon is a 19 year old at 17w3d who presents for routine visit. 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 Normal in second trimester 2. 17 weeks gestation of - Alpha Fetoprotein-Maternal Ser; Future - POCT Urinalysis w/o Specific [place] - CONSULT MATERNAL MEDICINE ULTRASOUND Multiple Gestation: [...] 4 weeks or prn Isabella Cole DNP, VETERINARY PHYSIOLOGIST-BC 06/29/2024 at 3:35 PM [facility] 2024-06-16 11:40:32 Contacted patient. Patient states she does not need a letter for work at this time. Pj Thompson RN 06/16/2024 11:40 AM Pj Thompson RN [facility] 2024-06-15 15:48:21 LM on for pt to return call. PAM OLIVAREZ RN 06/15/2024 3:48 PM Pam Olivarez RN [facility] 2024-06-15 09:39:33 Called back and stated that she is unsure how to go about getting a doctor excuse because she missed work for headache. Pt stated that the job currently does not know that she is as well. Please assist. Thank you. Rory Ballard [facility] 2024-06-15 06:57:36 Bere Obregon is a 18 year old female patient calling to speak with nurse regarding headache and needing a work excuse. Please call [phone] Ana M Del Cid [facility] 2024-06-09 10:22:13 Gender results given to Sakshi. Pj Thompson RN 06/09/2024 10:22 AM Pj Thompson RN [facility] 2024-06-09 09:57:46 Contacted patient regarding results. Genetic results given. Patient wants gender results given to sister Sakshi Obregon at [phone]. Will contact patient later. Pj Thompson RN 06/09/2024 9:58 AM On license of [facility] 2024-06-09 09:49:29 Panorama & horizon results received via fax. Stamped and will be uploaded to patients chart. On license of [facility] 2024-06-01 14:17:02 Returned patients call. [...] orders. Pj Thompson RN 06/01/2024 2:19 PM On license of [facility] 2024-06-01 13:04:57 Copied from [facility] #[id number]. Topic: Clinical - Medical Advice >> Jun 01, 2024 12:59 PM Patient Screen Printing Cloth Spreader wrote: Patient had taken azithromycin 500 mg [...] take the medication prescribed from urgent care. T Judah Lopez [facility] 2024-05-31 22:43:42 Pt given printed and [...] in no apparent distress, Jodi Ambrocio RN [facility] 2024-05-31 20:26:55 Pt given urine cup and placed back into lobby with instructions for collecting urine sample. [facility] 2024-05-31 20:17:36 Pt arrived ambulatroy without assist. Pt boyfriend with her, okay to discuss medical care in front of him. Pt c/o headache all day and cramping in abd after taking azithromycin 1000mg written by Dr. Amezquita for treatment of chlamydemia. Pt denies bleeding or changes in vaginal discharge. [facility] 12/04/2024, 13wks 2days G1 STEEL RIGGER - Ely Brewer RN [facility] 2024-05-31 20:15:00 [facility] Emergency Department Note Patient Name: Bere Obregon Date of : 2005 18 year old female Treatment [facility] Primary Care Physician: Natalee Amezquita Patient Escorted by: Family [5] Mode of Arrival: Personal means [1] EMS Treatment Prior to ED Arrival: SALES STRATEGY MANAGER treatment: Antibiotic Travel and Exposure Screening: Symptoms [...] Electronically signed by: Brian Hayes MD 05/31/242229 T [facility] 2024-05-31 15:16:31 [facility] -LMP 02/28/2024; [facility] 12/04/2024 -Ultrasound on 04/21/2024: 8 weeks and 0 days, [facility] 12/01/2024. Single viable IUP with heart tone. Natalee Amezquita MD 05/31/2024 3:17 PM T [facility] 2024-05-31 07:44:03 Medical records received from [facility], placed on provider's desk for review. Radha Cabrera [facility] 2024-05-27 16:00:00 Images from the original note were not included. Venipuncture collection performed by clean technique on the left anticubitus. Total of 1 attempts were made. Slight pressure and a bandage/dressing were applied to the site(s). The patient experienced no complications. 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 Expectations for weight gain this include 15-25 pounds. Encouraged to call if have any additional questions or concerns. Discussed aneuploidy and carrier screening; patient opts for panorama and Horizon. Discussed with patient that she can have HEALTHY support with her during her delivery (which is subject to change depends on the COVID pandemic) Follow-up in 4 weeks for visit with CLIENT PARTNER Follow-up in 8 weeks for visit with Amezquita [facility]
[2025-08-02] MEDS ORDERED: KETOROLAC 30 MG/ML INJ ONE (19:23)
[2025-08-02] MEDS ORDERED: FAMOTIDINE 20 MG/2 ML VIAL IV ONE (19:23)
[2025-08-02] MEDS ORDERED: NA CHLORIDE 0.9% 1,000 ML ONE (19:23)
[2025-08-02] MEDS ORDERED: ONDANSETRON 4 MG/2 ML VIAL ONE (19:23)
[2025-08-02 19:34] LABS: Absolute Lymphocytes (CBC) 0.7 K/uL (0.7-4.9); Hematocrit 36.0 % (36.0-45.0); Hemoglobin 11.7 g/dL (12.0-15.0); MCH 24.5 pg (27.0-35.0); MCHC 32.6 g/dL (32.0-36.0); MCV 75.1 fL (80-100); MPV 8.7 fL (7.6-11.3); Nucleated RBC Absolute Count 0.0 (0-0); Nucleated Red Blood Cells % 0.1 % (0-0); RBC Red Blood Cell Count 4.80 M/uL (3.86-4.86); White Blood Count 7.50 thou/uL (4.3-10.9)
[2025-08-02 19:56] LABS: ALT/SGPT 89.0 U/L (13-56); AST/SGOT 109.0 U/L (15-37); Albumin 3.6 g/dL (3.4-5.0); Albumin/Globulin Ratio 0.8 (1.1-1.8); Alkaline Phosphatase 130.0 U/L (45-117); Anion Gap 7.5 mEq/L (5.0-15.0); BUN Blood Urea Nitrogen 12.0 mg/dL (7-18); Globulin 4.4 g/dL (2.3-3.5); Glucose Level 104.0 mg/dL (74-106); Lipase 30.0 U/L (13-75); Potassium 3.5 mEq/L (3.5-5.1)
--- NOTE | 2025-08-02 20:48 | RAD REPORT ---
EXAMINATION: Abdomen Pelvis W Contrast CLINICAL INDICATION: Female, 20 years old.ABD PAIN TECHNIQUE: CT abdomen and pelvis was performed, after the administration of IV contrast, [facility]. Axial, sagittal and coronal reconstructions were obtained. One or more of the following dose reduction techniques were used: Automated exposure control, adjustment of the mA and/o r kV according to patient size, and/or iterative reconstruction. Unless otherwise specified, incidental findings do not require dedicated imaging follow-up. [id number]. COMPARISON: No prior exams FINDINGS: LOWER CHEST: No acute process identified. No significant pericardial effusion. UPPER GI: No significant abnormality. LIVER: No significant focal abnormality. GALLBLADDER/BILE DUCTS: Cholecystectomy.? PANCREAS: No mass, ductal dilation, or navjot-pancreatic fluid. SPLEEN: Unremarkable. ADRENALS: No adrenal masses. KIDNEYS AND URETERS: No hydronephrosis. No suspicious renal mass. No renal calculi. No ureteral calcu li. ABDOMINAL AORTA AND OTHER VESSELS: Normal caliber aorta and IVC. PERITONEUM: No abnormal free fluid. No free air. LYMPH NODES: No pathologic lymphadenopathy. ABDOMINAL WALL: Unremarkable SMALL BOWEL/COLON: Small bowel has normal course and caliber. No colonic wall thickening or pericolon ic inflammatory changes. Normal appendix. URINARY BLADDER: Underdistended but grossly unremarkable. REPRODUCTIVE ORGANS: No pathologic process. MUSCULOSKELETAL: No acute or suspicious osseous abnormality. ADDITIONAL FINDINGS: None. IMPRESSION: No acute findings within the abdomen or pelvis.
--- NOTE | 2025-08-02 22:12 | EDPHYS ---
[facility] Name: Stalin Obregon Age: 20 yrs Sex: Female : 2005 Arrival Date: 08/02/2025 Time: 18:12 Bed 13 Private MD: ED Physician Misty Chanel HPI: 08/02 18:19 This 20 yrs old Female presents to ER via Unassigned with complaints of sb4 Abdominal Pain. 18:19 Patient reports upper abdominal pain that began this morning. She states it feels like sb4 a burning sensation. States that it feels similar to when she was having issues with her gallbladder, but she had her gallbladder removed several months ago. She reports associated vomiting and diarrhea. Denies any fever or chills. States she just got off her menstrual cycle. Denies any any improvement or worsening with eating. 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 - Infectious Disease History:: Denies. - Social history:: Smoking status: Reported history of juuling and/or vaping. ROS: 18:19 Constitutional: Negative for fever, chills, and weight loss, sb4 18:19 Abdomen/GI: Positive for abdominal pain, nausea, vomiting, and diarrhea, 18:19 All other systems are negative, Exam: 18:19 Head/Face: Normocephalic, atraumatic. Eyes: Extra-ocular motions intact. Periorbital sb4 areas with no swelling, redness, or edema. ENT: Mucous membranes moist. Cardiovascular: Regular rate and rhythm with a normal S1 and S2. Respiratory: No increased work of breathing, no retractions or nasal flaring. Skin: Warm, dry with normal turgor. Normal color with no rashes, no lesions, and no evidence of cellulitis. 18:19 Constitutional: The patient appears in no acute distress, alert, awake, 18:19 Abdomen/GI: Palpation: mild abdominal tenderness, in the epigastric area, right upper quadrant and left upper quadrant, Vital Signs: 18:18 BP 119 / 77; Pulse 110; Resp 18; Temp 98.2; Pulse Ox 100% ; Weight 63.5 kg; Height 5 me1 ft. 4 in. ; Pain 8/10; 18:18 Body Mass Index 24.03 (63.50 kg, 162.56 cm) me1 18:18 Pain Scale: Adult me1 MDM: 18:15 Medical Screening Exam initiated sb4 18:23 Differential diagnosis: gastritis, non-specific abd pain, pancreatitis, Peptic Ulcer sb4 Disease, FLD, choledocholithiasis. 18:23 Data reviewed: vital signs, nurses notes. sb4 08/02 18:19 Order name: CBC with Diff; Complete Time: 19:53 sb4 08/02 18:19 Order name: CMP; Complete Time: 19:57 sb4 08/02 18:19 Order name: Lipase; Complete Time: 19:57 sb4 08/02 18:19 Order name: Test, Serum; Complete Time: 19:53 sb4 08/02 18:19 Order name: CT Abd/Pelvis - IV Contrast Only; Complete Time: 20:50 sb4 08/02 20:51 Order name: Abdomen Limited US; Complete Time: 22:21 sb4 08/02 18:19 Order name: IV Saline Lock; Complete Time: 18:54 sb4 08/02 18:19 Order name: Labs collected and sent; Complete Time: 19:39 sb4 Administered Medications: 19:39 Drug: Famotidine IVP 20 mg IVP once; dilute with 10 mL 0.9% NaCl; give over 2 minutes rg5 Route: IVP; Site: right antecubital; 22:20 Follow up: Response: No adverse reaction; Pain is decreased rg5 19:39 Drug: TORadol - Ketorolac IVP 15 mg IVP once Route: IVP; Site: right antecubital; rg5 22:20 Follow up: Response: No adverse reaction; Pain is decreased rg5 19:39 Drug: Ondansetron IVP 4 mg IVP once; over 2 minutes Route: IVP; Site: right antecubital;rg5 22:20 Follow up: Response: No adverse reaction rg5 19:39 Drug: NS 0.9% IV 1000 ml IV at 1 bolus Per protocol; to be given as a bolus over 60 rg5 minutes Route: IV; Rate: 1 bolus; Site: right antecubital; 22:20 Follow up: IV Status: Completed infusion; IV Intake: 1000ml rg5 Disposition Summary: 08/02/25 22:11 Discharge Ordered Notes: Location: Home sb4 Problem: new sb4 Symptoms: have improved sb4 Condition: Stable sb4 Diagnosis - Viral gastroenteritis with mild transaminitis sb4 Followup: sb4 - With: Emergency Department - When: As needed - Reason: Trouble breathing, Worsening of condition Discharge Instructions: - Discharge Summary Sheet sb4 - Viral Gastroenteritis, Adult, [id number] sb4 Forms: - Work release form sb4 - Patient Portal Instructions sb4 - Leadership Thank You Letter sb4 Signatures: Dispatcher [employer] EDAmparo Mccloud PA-C PA-C sb4 Cindy Centeno, RN RN me1 Casimiro Nguyen RN RN rg5 Corrections: (The following items were deleted from the chart) 18:24 18:23 Differential diagnosis: gastritis, non-specific abd pain, pancreatitis, Peptic sb4 Ulcer Disease, sb4
--- NOTE | 2025-08-02 22:12 | ER ---
Nurse's Notes [facility] Name: Stalin Obregon Age: 20 yrs Sex: Female : 2005 Arrival Date: 08/02/2025 Time: 18:12 Bed 13 Private MD: Diagnosis: Viral gastroenteritis with mild transaminitis Presentation: 08/02 18:18 Chief complaint: Patient states: intermittent RUQ and LUQ abdominal pain that started me1 this morning with n/v/d. Pain 8/10 "burning" radiates to back. Coronavirus screen: Vaccine status: Patient reports being unvaccinated. Ebola Screen: No symptoms or risks identified at this time. Initial Sepsis Screen: Does the patient meet any 2 criteria? HR > 90 bpm. Does the patient have a suspected source of infection? No. Patient's initial sepsis screen is negative. Risk Assessment: Do you want to hurt yourself or someone else? Patient reports no desire to harm self or others. Onset of symptoms was August 02, 2025 at 07:00. 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 - Infectious Disease History:: Denies. - Social history:: Smoking status: Reported history of juuling and/or vaping. Screenin:30 [facility] ED Fall Risk Assessment (Adult) History of falling in the last 3 months, rg5 including since admission No falls in past 3 months (0 pts) Confusion or Disorientation No (0 pts) Intoxicated or Sedated No (0 pts) Impaired Gait No (0 pts) Mobility Assist Device Used No (0 pt) Altered Elimination No (0 pt) Score/Fall Risk Level 0 - 2 = Low Risk Oriented to surroundings, Maintained a safe environment. Abuse screen: Denies threats or abuse. Nutritional screening: No deficits noted. Tuberculosis screening: No symptoms or risk factors identified. Assessment: 18:30 General: Appears in no apparent distress. Behavior is calm, cooperative, appropriate rg5 for age. Pain: Complains of pain in abdomen. Neuro: Level of Consciousness is awake, alert, obeys commands, Oriented to person, place, time, situation. Cardiovascular: Denies chest pain, Patient's skin is warm and dry. Respiratory: Airway is patent Trachea midline Breath sounds are clear. GI: Abdomen is round non-distended, Bowel sounds present in left lower quadrant Abd is soft and non tender. : No signs and/or symptoms were reported regarding the genitourinary system. EENT: No signs and/or symptoms were reported regarding the EENT system. Derm: Skin is intact, Skin is dry, Skin is normal. Musculoskeletal: Circulation, motion, and sensation intact. Range of motion: intact in all extremities. 19:35 Reassessment: Patient and/or family updated on plan of care and expected duration. Pain rg5 level reassessed. Patient is alert, oriented x 3, equal unlabored respirations, skin warm/dry/pink. 20:25 Reassessment: Patient and/or family updated on plan of care and expected duration. Pain rg5 level reassessed. Patient is alert, oriented x 3, equal unlabored respirations, skin warm/dry/pink. Patient states symptoms have improved. 21:26 Reassessment: Patient and/or family updated on plan of care and expected duration. Pain rg5 level reassessed. Patient is alert, oriented x 3, equal unlabored respirations, skin warm/dry/pink. Patient states feeling better. Vital Signs: 18:18 BP 119 / 77; Pulse 110; Resp 18; Temp 98.2; Pulse Ox 100% ; Weight 63.5 kg; Height 5 me1 ft. 4 in. ; Pain 8/10; 18:18 Body Mass Index 24.03 (63.50 kg, 162.56 cm) me1 18:18 Pain Scale: Adult me1 ED Course: 18:14 Patient arrived in ED. mr 18:15 Amparo Strauss PA-C is PHCP. sb4 18:15 Misty Chanel MD is Attending Physician. sb4 18:19 Triage completed. me1 18:19 Arm band placed on Patient placed in waiting room. me1 18:30 Patient has correct armband on for positive identification. Door closed. Noise rg5 minimized. Warm blanket given. 18:30 No provider procedures requiring assistance completed. rg5 18:54 CBC with Diff Sent. me1 18:54 CMP Sent. me1 18:54 Lipase Sent. me1 18:54 Test, Serum Sent. me1 18:54 Initial lab(s) drawn, by me, sent to lab. Inserted saline lock: 22 gauge in left me1 antecubital area, using aseptic technique. 19:19 Casimiro Nguyen, RN is Primary Nurse. rg5 20:30 CT Abd/Pelvis - IV Contrast Only In Process Unspecified. EDMS 22:10 Abdomen Limited US In Process Unspecified. EDMS Administered Medications: 19:39 Drug: Famotidine IVP 20 mg IVP once; dilute with 10 mL 0.9% NaCl; give over 2 minutes rg5 Route: IVP; Site: right antecubital; 22:20 Follow up: Response: No adverse reaction; Pain is decreased rg5 19:39 Drug: TORadol - Ketorolac IVP 15 mg IVP once Route: IVP; Site: right antecubital; rg5 22:20 Follow up: Response: No adverse reaction; Pain is decreased rg5 19:39 Drug: Ondansetron IVP 4 mg IVP once; over 2 minutes Route: IVP; Site: right antecubital;rg5 22:20 Follow up: Response: No adverse reaction rg5 19:39 Drug: NS 0.9% IV 1000 ml IV at 1 bolus Per protocol; to be given as a bolus over 60 rg5 minutes Route: IV; Rate: 1 bolus; Site: right antecubital; 22:20 Follow up: IV Status: Completed infusion; IV Intake: 1000ml rg5 Medication: 18:30 VIS not applicable for this client. rg5 Intake: 22:20 IV: 1000ml; Total: 1000ml. rg5 Outcome: 22:11 Discharge ordered by . sb4 22:39 Patient left the ED. rg5 Signatures: Dispatcher [employer] EDCT Rachel Teran, Alphonso Werner Amparo Strauss, PA-C PA-C sb4 Cindy Centeno, RN RN me1 Casimiro Nguyen, RN RN rg5
--- NOTE | 2025-08-02 22:19 | RAD REPORT ---
Abdomen Exam Limited: 08/02/2025 10:08 PM CLINICAL HISTORY: post bret, elevated LFTS, CBD eval pls;Abd pain STUDY: Limited right upper quadrant ultrasound of abdomen. COMPARISON: Same-day CT FINDINGS: Liver: Hepatic steatosis. Bile ducts: No intrahepatic or extrahepatic biliary ductal dilatation. Common bile duct measures 3 mm. Gallbladder: Surgically absent. IMPRESSION: Hepatic steatosis. Cholecystectomy. No biliary ductal dilatation.
[2025-08-02 23:33] VITALS: BP 119/77; TEMP 98.2; O2SAT 100
== END 2025-08-02 22:39 | disposition home or self-care (01) ==
LOC: ER 18:12
DX: A08.39 Other viral enteritis (principal)
CPT/HCPCS: 96361; 85025; 36415; 84703; 83690; 80053; 74177; 76705; 96375; 96374; 99284; Q9967; J1885; J2405; J7030